=== PATIENT | female | born 1965 | race Caucasian/White ===

== ENCOUNTER → 2019-03-20 07:37 | Outpatient (BNVA) | payer MEDICAID, SELFPAY | PROVIDERS: Visit Provider Counselor Professional | DX: F41.1 Generalized anxiety disorder (principal) | CPT/HCPCS: 90834 ==

== ENCOUNTER → 2019-04-11 13:39 | Outpatient (BNVA) | payer MEDICAID, SELFPAY | PROVIDERS: Family Provider Nurse Practitioner Family; Visit Provider Nurse Practitioner Psychiatric/Mental Health | DX: F33.1 Major depressive disorder, recurrent, moderate (principal); F41.1 Generalized anxiety disorder | CPT/HCPCS: 99214 ==

== ENCOUNTER → 2019-04-16 13:30 | Outpatient (BNVA) | payer MEDICAID, SELFPAY | PROVIDERS: Visit Provider Counselor Professional | DX: R41.1 Anterograde amnesia (principal) | CPT/HCPCS: 90834 ==

== ENCOUNTER → 2019-05-13 15:11 | Outpatient (BNVA) | payer MEDICAID, SELFPAY | PROVIDERS: Visit Provider Counselor Professional | DX: F33.1 Major depressive disorder, recurrent, moderate (principal); F41.1 Generalized anxiety disorder | CPT/HCPCS: 90834 ==

== ENCOUNTER → 2019-05-16 07:32 | Outpatient (BNVA) | payer MEDICAID, SELFPAY | PROVIDERS: Visit Provider Nurse Practitioner Psychiatric/Mental Health | DX: F33.1 Major depressive disorder, recurrent, moderate (principal); F41.1 Generalized anxiety disorder | CPT/HCPCS: 99214 ==

== ENCOUNTER → 2019-06-11 08:14 | Outpatient (BNVA) | payer MEDICAID, SELFPAY | PROVIDERS: Visit Provider Nurse Practitioner Psychiatric/Mental Health | DX: F33.1 Major depressive disorder, recurrent, moderate (principal); F41.1 Generalized anxiety disorder | CPT/HCPCS: 99214 ==

== ENCOUNTER 2019-07-03 08:11 | Outpatient (CLI) | payer MEDICAID, SELFPAY ==
--- NOTE | 2019-07-03 08:00 | CT_ITS ---
WS: [id number] CT CHEST WITH INTRAVENOUS CONTRAST HISTORY: left lung nodule follow up TECHNIQUE: Contiguous 5 mm axial imaging performed on the thorax. Coronal and sagittal reformats are submitted. All CT scans at [facility] use at least one of these dose optimization techniq ues: automated exposure control; mA and/or kV adjustment per patient size (includes targeted exams wh ere dose is matched to clinical indication); or iterative reconstruction. CONTRAST: Omnipaque 300; 95 mL IV. DLP: 854.62 mGycm COMPARISON: 07/01/2018 and 11/28/2017 Lungs and central airway: Continued stability of the well-circumscribed round pulmonary nodule measur ing 8 mm in the medial LEFT lower lobe. This nodule has been stable since 11/28/2017. No additional n odules. Mild dependent changes at the lung bases posteriorly. Pleura: Normal. No pleural effusion. Heart and pericardium: Normal size heart. No pericardial effusion. Mediastinum and jf: Subcentimeter RIGHT hilar lymph node. No interval change. Vessels: Normal size aorta and pulmonary artery. Chest wall and lower neck: No soft tissue masses. Upper abdomen: Visualized liver and gallbladder and upper abdominal structures are negative. Osseous structures: No destructive process. CT/CT chest w con* [id number] IMPRESSION: 1. Long-term stability well-circumscribed benign-appearing nodule in the media l LEFT lower lobe. No additional follow-up necessary unless patient is at signi ficant risk for lung cancer. If there is an increased risk for lung cancer shakira mmend 12 month follow-up. No history of smoking was provided. Nodule is stable since 11/28/2017. 2. No adenopathy.
[2019-07-03] MEDS: iohexol 300 mg/mL 100 mL Btl IV (08:47)
== END 2019-07-03 08:12 | disposition home or self-care (01) ==
LOC: RADWPI 08:14
PROVIDERS: Visit Provider Family Medicine
DX: R91.1 Solitary pulmonary nodule (principal)
CPT/HCPCS: 71260; Q9967

== ENCOUNTER → 2019-07-10 08:20 | Outpatient (BNVA) | payer MEDICAID, SELFPAY | PROVIDERS: Visit Provider Nurse Practitioner Psychiatric/Mental Health | DX: F33.1 Major depressive disorder, recurrent, moderate (principal); F41.1 Generalized anxiety disorder | CPT/HCPCS: 99214 ==

== ENCOUNTER → 2019-07-21 08:24 | Outpatient (BNVA) | payer MEDICAID, SELFPAY | PROVIDERS: PCP Family Medicine; Visit Provider Family Medicine | DX: Z12.31 Encounter for screening mammogram for malignant neoplasm of breast (principal); Z13.6 Encounter for screening for cardiovascular disorders; Z01.419 Encounter for gynecological examination (general) (routine) without abnormal findings | CPT/HCPCS: 80053; 80061; 85025; 88175 ==

== ENCOUNTER → 2019-09-11 07:29 | Outpatient (BNVA) | payer MEDICAID, SELFPAY | PROVIDERS: PCP Family Medicine; Visit Provider Nurse Practitioner Psychiatric/Mental Health | DX: F33.1 Major depressive disorder, recurrent, moderate (principal); F41.1 Generalized anxiety disorder | CPT/HCPCS: 99213 ==

== ENCOUNTER → 2019-10-22 14:32 | Outpatient (BNVA) | payer MEDICAID, SELFPAY | PROVIDERS: PCP Family Medicine; Visit Provider Nurse Practitioner Family | DX: J02.9 Acute pharyngitis, unspecified (principal) | CPT/HCPCS: 87071; 87880 ==

== ENCOUNTER 2019-11-10 08:24 | Emergency (ER) | payer MEDICAID, SELFPAY ==
[2019-11-10 08:37] VITALS: BP 148/92; PULSE 70; RESP 18; TEMP 36.5; O2SAT 96; BMI 32.8
--- NOTE | 2019-11-10 08:59 | US_ITS ---
WS: [id number] RIGHT UPPER QUADRANT ULTRASOUND HISTORY: pain COMPARISON: 01/17/2019 Liver: 13.7 cm in length. Normal size liver. No bile duct dilatation or mass. Gallbladder: Normally distended gallbladder with no stones or wall thickening. CBD: 0.5 cm Pancreas: Normal size and echogenicity. Right kidney: 9.4 cm in length. Normal size and echogenicity. No hydronephrosis or mass. Aorta and IVC: Unremarkable abdominal aorta and IVC. No ascites. US/US gall bladder [id number] IMPRESSION: Normal RIGHT upper quadrant ultrasound.
--- NOTE | 2019-11-10 09:01 | ED_ITS ---
HPI - Abdominal Pain General: Chief Complaint: Abdominal Pain Stated Complaint: ABDOMEN PAIN Time Seen by Provider: 11/10/19 08:38 History of Present Illness: HPI narrative: 54-year-old female comes in complaining of nausea and vomiting she has had for the last week it is worse when she eats just about anything. She denies any diarrhea cough no shortness of breath no fever said any coffee-ground emesis or hematemesis. Is not really taking anything for it she has noticed a couple black tarry stools she took some Pepto-Bismol but the timing of when she had the stool is not likely correlate with when she took the Pepto-Bismol. She denies any dysuria urgency or frequency. She has not found anything that seems to make it better or worse she has not noticed any particular trigger foods. This set of symptoms is all new for her she has not had anything like previously. MD elicited complaint: abdominal pain Pertinent past history: none Onset (ago): week(s) (1) Pain Consistency: intermittent Location: Epigastric and RUQ Severity: severe Quality: cramping and stabbing Radiation: back Migration to: no migration Exacerbating factors: eating Associated Symptoms: Reports anorexia, bloating, change in bowel habits, change in stool character, GI cramping and melena; Denies belching, chills, coffee ground emesis, constipation, diarrhea, dyspepsia, dysuria, excessive flatus, fever(s), heartburn, hematochezia, hematuria, hematemesis, fecal incontinence, loose stools, nausea, poor appetite, syncope and vomiting Review of Systems Const: Denies: fever(s) or chills ENMT: Denies: throat pain, ear or mastoid pain, nasal discharge or nasal congestion Card: Denies: syncope Resp: Denies: dyspnea, productive cough or non-productive cough GI: Reports: bloating, GI cramping, change in bowel habits, change in stool character and melena; Denies: nausea, vomiting, hematemesis, coffee ground emesis, heartburn, diarrhea, constipation, belching, excessive flatus, fecal incontinence or hematochezia : Denies: dysuria or hematuria Skin/Breast: Denies: rash or pruritus PFSH ED PFSH: Medical History Constipation Depression Generalized anxiety disorder GERD (gastroesophageal reflux disease) Lung nodule Left lower lobe - 7mm - repeat in 07/01 Major depressive disorder, recurrent episode, moderate with anxious distress Surgical History H/O colonoscopy 03/14/2016 Repeat in 10 years No pertinent past surgical history Family History Denies family history of Diabetes CAD (coronary artery disease) Anesthesia complication Bleeding disorder Cancer Social History Smoking and tobacco status: never smoked Second hand smoke exposure: No Smoking risk assessment/counseling performed?: No Alcohol intake: never Household members: family Marital status: Single Current occupational status: employed 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 History of recent travel: No Physical Exam Const: COMMON NORMALS: no acute distress GENERAL APPEARANCE: cooperative and comfortable ORIENTATION/CONSCIOUSNESS: Yes awake, Yes oriented to person, Yes oriented to place and Yes oriented to time HENMT: COMMON NORMALS: normocephalic, atraumatic and hearing grossly normal bilaterally HEAD & SCALP: normocephalic and atraumatic Neck/C-Spine: COMMON NORMALS: no JVD Resp: COMMON NORMALS: normal respiratory effort, No retractions, No use of accessory muscles and clear to auscultation bilaterally AUSCULTATION: clear t o auscultation bilaterally Cardio: COMMON NORMALS: no JVD, regular rate, regular rhythm and No murmurs present (Cardio) RATE: regular rate RHYTHM: regular rhythm GI: COMMON NORMALS: Soft to palpation and No hepatosplenomegaly present AUSCULTATION: Yes normoactive bowel sounds PALPATION: Yes Soft to palpation, No Tenderness to palpation present (GI), No Guarding due to palpation present (GI) and Yes No hepatosplenomegaly present Extremity: COMMON NORMALS: normal to inspection, capillary refill normal, no clubbing, cyanosis or edema, no calf tenderness and no pedal edema Neuro: SENSORIUM/ORIENTATION: Yes oriented to person, Yes oriented to place and Yes oriented to time Skin: COMMON NORMALS: no rashes or lesions noted GENERAL SKIN EXAM: no rashes or lesions noted Course Vital Signs: Vital signs: Vital Signs Temperature 97.7 F 11/10/19 08:37 Pulse Rate 53 L 11/10/19 10:38 Respiratory Rate 16 11/10/19 10:38 Blood Pressure 137/82 11/10/19 10:38 Pulse Oximetry 97 11/10/19 10:38 MDM - Abdominal Pain MDM Narrative: Medical decision making narrative: Discontinue omeprazole start pantoprazole 40 mg 1 p.o. twice daily for 14 days also use Zofran PRN follow-up with primary care doctor in the next week to review may need further evaluation including EGD. Lab Data: Labs: Lab Results 11/10/19 11/10/19 11/10/19 Range/Units 09:17 09:45 09:45 WBC 6.2 (4.0-10.0) 10^3/ uL RBC 4.68 (4.1-5.3) 10^6/u L Hgb 14.3 (11.5-15.3) g/dL Hct 43.8 (37.0-47.0) % MCV 93.6 (81-99) fL MCH 30.6 (28.0-34.0) pg MCHC 32.6 (30.0-36.0) g/dL RDW 12.5 (12.1-15.1) % Plt Count 264 (130-400) 10^3/c mm MPV 11.2 H (7.4-10.4) fL Neut % (Auto) 59.0 % Lymph % (Auto) 32.5 % Kaufman % (Auto) 6.7 % Eos % (Auto) 0.7 % Baso % (Auto) 0.8 % Neut # (Auto) 3.63 (1.8-7.7) 10^3/u L Lymph # (Auto) 2.0 (0.8-4.8) 10^3/u L Kaufman # (Auto) 0.4 (0.2-0.9) 10^3/u L Eos # (Auto) 0.0 (0.0-0.8) 10^3/u L Baso # (Auto) 0.1 (0.0-0.1) 10^3/u L Nucleated RBC % (a uto) 0 % Nucleated RBCs # 0.0 /100WBC Sodium 139 (136-145) mmol/L Potassium 4.1 (3.5-5.1) mmol/L Chloride 106 (98-107) mmol/L Carbon Dioxide 23 (22-29) mmol/L Anion Gap 14.1 (5-19) BUN 14 (6-20) mg/dL Creatinine 0.8 (0.5-0.9) mg/dL GFR Calculation 75.3 L (90-130) mL/min Glucose 100 (65-115) mg/dL Calculated Osmolal ity 289 (285-295) mOsm/k g Calcium 9.0 (8.5-10.5) mg/dL Total Bilirubin 0.3 (0.15-1.2) mg/dL AST 20 (0-32) U/L ALT 14 (0-33) U/L Alkaline Phosphata se 57 (35-105) IU/L Total Protein 6.7 (6.6-8.7) g/dL Albumin 4.5 (3.5-5.2) g/dL Globulin 2.2 (1.3-4.6) g/dL Lipase 31 (13-60) U/L Urine Color Yellow (Yellow) Urine Appearance Clear (CLEAR) Urine pH 7 (5-7) Ur Specific Gravit y 1.005 (1.005-1.030) Urine Protein Neg (Negative) Urine Glucose (UA) Norm (Normal) Urine Ketones Negative (Negative) Urine Blood Neg (Negative) Urine Nitrate Negative (Negative) Urine Bilirubin Neg (Negative) Urine Urobilinogen Norm (Negative) mg/dL Ur Leukocyte Bonnie ase Negative (Negative) Discharge Plan Discharge Patient Disposition: Home Clinical Impression: GERD (gastroesophageal reflux disease) Condition: Stable Prescriptions: New Zofran 4 mg tablet 4 mg PO Q6H PRN (Reason: nausea and vomiting) Qty: 20 RF: 0 Discontinued omeprazole 20 mg capsule,delayed release(DR/EC) 20 mg PO BID Qty: 60 RF: 1 No Action hydroxyzine HCl 50 mg tablet 50 mg PO BID PRN (Reason: itching) Qty: 60 RF: 3 sucralfate [Carafate] 1 gram tablet 1 gm PO Q6H Qty: 120 RF: 0 Linzess 72 mcg capsule 72 mcg PO QAM Qty: 30 RF: 2 lactulose 10 gram/15 mL solution See Rx Instructions .ROUTE .COMPLEX Qty: 473 RF: 2 trazodone 100 mg tablet 200 mg PO BEDTIME RF: 0 Discharge Orders: Discharge Order (Routine); Ordered 11/10/19 Ordered By: Charly Coleman Referrals: Geri Mukherjee DO [Primary Care Provider] - Activity Restrictions/Additional Instructions: Case management will call to get your appointment to see 1 of the surgeons for p ossible EGD or further work-up for your abdominal pain. Discharge Date/Time: 11/10/19 10:39 Coding Level of Care Code ED Auto Air Conditioning Installer for Chg Fwd Exam Comprehensive
[2019-11-10 09:22] LABS: Add Urine Microscopic? NO
[2019-11-10 09:33] LABS: Bilirubin Urine Neg (Negative); Blood Urine Neg (Negative); Glucose Urine UA Norm (Normal); Ketones Urine Negative (Negative); Leukocyte Esterase Urine Negative (Negative); Nitrate Urine Negative (Negative); Protein Urine Neg (Negative); Specific Gravity, Urine 1.005 (1.005-1.030); Urine Appearance Clear (CLEAR); Urine Color Yellow (Yellow); Urobilinogen Urine Norm (Negative); pH Urine 7 (5-7)
[2019-11-10] MEDS: ondansetron 2 mg/ML SDV 2 mL 4 MG IVP (09:40)
[2019-11-10] MEDS: sodium chloride 0.9% 1,000 ML 999 ML IV (09:40)
[2019-11-10] MEDS: lidocaine 2% viscous 15 ML, aluminum-mag hydrox-simethicon 30 ML, sucralfate oral liq 1 GM PO (09:41)
[2019-11-10 09:44] VITALS: BP 151/81; PULSE 58; O2SAT 96
[2019-11-10 10:01] LABS: Basophils # 0.1 10^3/uL (0.0-0.1); Basophils % 0.8 %; Eosinophils % 0.7 %; Hematocrit 43.8 % (37.0-47.0); Hemoglobin 14.3 g/dL (11.5-15.3); Lymphocytes % 32.5 %; Mean Corpuscular HGB Conc 32.6 g/dL (30.0-36.0); Mean Corpuscular Hemoglobin 30.6 pg (28.0-34.0); Mean Corpuscular Volume 93.6 fL (81-99); Mean Platelet Volume 11.2 fL (7.4-10.4); Monocytes # 0.4 10^3/uL (0.2-0.9); Monocytes % 6.7 %; Neutrophils # 3.63 10^3/uL (1.8-7.7); Nucleated Red Blood Cells % 0 %; Platelet Count 264 10^3/cmm (130-400); Red Blood Count 4.68 10^6/uL (4.1-5.3); Red Cell Distribution Width 12.5 % (12.1-15.1); White Blood Count 6.2 10^3/uL (4.0-10.0)
[2019-11-10 10:13] LABS: Alanine Aminotransferase 14 U/L (0-33); Albumin Level 4.5 g/dL (3.5-5.2); Alkaline Phosphatase 57 IU/L (35-105); Anion Gap 14.1 (5-19); Aspartate Amino Transferase 20 U/L (0-32); Blood Urea Nitrogen 14 mg/dL (6-20); Carbon Dioxide 23 mmol/L (22-29); Chloride 106 mmol/L (98-107); Globulin 2.2 g/dL (1.3-4.6); Glomerular Filtration Rate 75.3 mL/min (90-130); Glucose 100 mg/dL (65-115); Lipase 31 U/L (13-60); Osmolality Calculated 289 mOsm/kg (285-295); Potassium 4.1 mmol/L (3.5-5.1); Sodium 139 mmol/L (136-145); Total Bilirubin 0.3 mg/dL (0.15-1.2); Total Protein 6.7 g/dL (6.6-8.7)
[2019-11-10 10:38] VITALS: BP 137/82; PULSE 53; RESP 16; O2SAT 97
--- NOTE | 2019-11-10 11:24 | DCPLANNER ---
clinical trials manager had message to schedule a follow up appointment for patient with general surgery. clinical trials manager called the [facility], spoke with Carol, gave clinic patients information. clinical trials manager was told that patients information would be printed and reviewed. Clinic will call patient with appointment information.
--- NOTE | 2019-11-12 10:12 | DCPLANNER ---
Patient has a follow up appointment scheduled for Tuesday, October 15, 2019 at 11:[address] Henriquez. Clinic will call patient with appointment information.
--- NOTE | 2019-11-18 15:49 | DCPLANNER ---
Patient had a follow up appointment scheduled for 11.14.19 with Machine [facility] - patient did attend appointment.
== END 2019-11-10 10:39 | disposition home or self-care (01) ==
PROVIDERS: Emergency Provider Family Medicine; PCP Family Medicine
DX: K21.9 Gastro-esophageal reflux disease without esophagitis (principal)
CPT/HCPCS: 12345; 76705; 80053; 81003; 83690; 85025; 96361; 96374; 96375; 99283; J2405; J7030

== ENCOUNTER → 2019-11-12 07:41 | Outpatient (BNVA) | payer MEDICAID, SELFPAY | PROVIDERS: PCP Family Medicine; Visit Provider Family Medicine | DX: R10.13 Epigastric pain (principal) | CPT/HCPCS: G0328 ==

== ENCOUNTER → 2019-11-21 12:01 | Outpatient (BNVA) | payer MEDICAID, SELFPAY | PROVIDERS: PCP Family Medicine; Visit Provider Surgery | DX: Z11.59 Encounter for screening for other viral diseases (principal); R10.13 Epigastric pain | CPT/HCPCS: 87635 ==

== ENCOUNTER 2019-11-27 08:39 | Day surgery (SDC) | payer MEDICAID, SELFPAY ==
[2019-11-27 08:57] VITALS: BP 110/65; PULSE 65; RESP 18; TEMP 36.5; O2SAT 96
[2019-11-27 09:09] LABS: OR HCG Qualitative Urine Negative (Negative)
[2019-11-27] MEDS: sodium chloride 0.9% 1,000 ML 30 ML IV (09:10)
--- NOTE | 2019-11-27 09:19 | ANES.PREANE2 ---
Pre-Anesthetic Assessment Pre-Anesthetic Assessment: Height/Weight: Height 1.45 m Weight 69.853 kg Temp Pulse Resp BP Pulse Ox 97.7 F 65 18 110/65 96 11/27/19 08:57 11/27/19 08:57 11/27/19 08:57 11/27/19 08:57 11/27/19 08:57 Preop Diagnosis: gerd Proposed Procedure: Operation Date: 11/27/19 10:00 Proposed Procedures p EGD 63132 R10.13(Not Applicable) - Renny Henriquez MD Familial anesthetic complications: None Was Beta Ella taken within 24 hours: N/A Last intake: Intake Last Liquid Date 11/26/19 Last Liquid Time 20:00 Last Solid Date 11/26/19 Last Solid Time 20:00 Social: Social History: No alcohol and No tobacco Exam: Pre-Anes Outpt Exam: alert, oriented x 3, clear to auscultation bilaterally and regular rate & rhythm Airway: Cervical ROM: WNL MP: 2 Dentition: False GI: GI: GERD Neuropsych: Neuropsych: Anxiety Anesthetic Plan: ASA status: 2 Anesthesia: MAC Risk of > 500 ml blood loss (7ml/kg in children): No Meds/Allergies Current Medications: Current Medications Generic Name Dose Route Start Last Admin Trade Name Freq PRN Reason Stop Dose Admin Sodium Chloride 1,000 mls @ 30 ml s/hr 11/27/19 09:00 11/27/19 09:10 Sodium Chloride 0.9% IV 11/28/19 08:59 30 mls/hr .Q24H TENZIN Administration PFSH Anesthesia PFSH: Medical History Constipation Depression Generalized anxiety disorder GERD (gastroesophageal reflux disease) Lung nodule Left lower lobe - 7mm - repeat in 07/01 Major depressive disorder, recurrent episode, moderate with anxious distress Surgical History (Updated 11/14/19 @ 11:49 by Renny Henriquez MD) H/O colonoscopy 03/14/2016 Repeat in 10 years Family History Denies family history of Diabetes CAD (coronary artery disease) Anesthesia complication Bleeding disorder Cancer Social History Smoking and tobacco status: never smoked Second hand smoke exposure: No Smoking risk assessment/counseling performed?: No Alcohol intake: never Household members: family Marital status: Single Current occupational status: employed 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
--- NOTE | 2019-11-27 09:20 | W.PM.OPSUD ---
Surgery/Procedure H&P Update DATE OF PROCEDURE: November 27, 2019 DATE H&P PERFORMED: 11/14/19 H&P UPDATE INFORMATION: I have reviewed H&P completed within last 30 days, I have examined patient prior to procedure and No changes to prior documentation PREOP DIAGNOSIS: gerd PLANNED PROCEDURE: Operation Date: 11/27/19 10:00 Proposed Procedures p EGD 39684 R10.13(Not Applicable) - Renny Henriquez MD
[2019-11-27 09:36] VITALS: BP 95/60; PULSE 55; RESP 16; TEMP 36.1; O2SAT 99
[2019-11-27 09:45] VITALS: BP 103/65; PULSE 59; RESP 18; O2SAT 94
--- NOTE | 2019-11-27 09:50 | ANE.PACU2 ---
Inpatient post-anesthesia follow up: Airway intact: Yes Vital signs: Temperature 97.0 F Pulse Rate 59 Respiratory Rate 18 Blood Pressure 103/65 Pulse Oximetry 94 Oxygen Delivery Me thod Room Air Oxygen Flow Rate 3 Fraction of Inspir ed Oxygen Hydration adequate: Yes Nausea and vomiting: No Pain level: 1 Mental status: Baseline
== END 2019-11-27 09:57 | disposition home or self-care (01) ==
PROVIDERS: PCP Family Medicine; Visit Provider Surgery
PROC: 0DJ08ZZ Inspection of Upper Intestinal Tract, Via Natural or Artificial Opening Endoscopic (ICD-10-PCS; CPT 43235; principal; 2019-11-27 10:00)
DX: K21.9 Gastro-esophageal reflux disease without esophagitis (principal); K29.70 Gastritis, unspecified, without bleeding; F41.9 Anxiety disorder, unspecified; F33.9 Major depressive disorder, recurrent, unspecified
CPT/HCPCS: 12345; 43235; 84703; J7030

== ENCOUNTER → 2019-12-04 08:38 | Outpatient (BNVA) | payer MEDICAID, SELFPAY | PROVIDERS: PCP Family Medicine; Visit Provider Nurse Practitioner Psychiatric/Mental Health | DX: F33.1 Major depressive disorder, recurrent, moderate (principal); F41.1 Generalized anxiety disorder | CPT/HCPCS: 99213 ==

== ENCOUNTER → 2019-12-25 08:26 | Outpatient (BNVA) | payer MEDICAID, SELFPAY | PROVIDERS: PCP Family Medicine; Visit Provider Family Medicine | DX: E78.5 Hyperlipidemia, unspecified (principal) | CPT/HCPCS: 80061 ==

== ENCOUNTER → 2020-01-15 08:32 | Outpatient (BNVA) | payer MEDICAID, SELFPAY | PROVIDERS: PCP Family Medicine; Visit Provider Nurse Practitioner Psychiatric/Mental Health | DX: F33.1 Major depressive disorder, recurrent, moderate (principal); F41.1 Generalized anxiety disorder | CPT/HCPCS: 99213 ==

== ENCOUNTER 2020-01-19 08:42 | Outpatient (CLI) | payer MEDICAID, SELFPAY ==
--- NOTE | 2020-01-19 08:48 | MM_ITS ---
WS: [id number] BILATERAL DIGITAL SCREENING MAMMOGRAPHY WITH CAD CLINICAL INFORMATION: SCREENING HISTORY: Screening mammogram. No current complaints. COMPARISON: TECHNIQUE: Bilateral CC and MLO views. FINDINGS: Scattered fibroglandular densities bilaterally. No suspicious focal mass, asymmetry, calcifications, or architectural distortion. No evidence of malignancy. MM/[place] [id number] IMPRESSION: BI-RADS: 1-Negative FOLLOW UP: 1 Year Follow-up Recommend return to annual screening mammography.
== END 2020-01-19 08:43 | disposition home or self-care (01) ==
LOC: RADSHAW 08:44
PROVIDERS: PCP Family Medicine; Visit Provider Family Medicine
DX: Z12.31 Encounter for screening mammogram for malignant neoplasm of breast (principal)
CPT/HCPCS: 77067

== ENCOUNTER → 2020-03-19 08:33 | Outpatient (BNVA) | payer MEDICAID, SELFPAY | PROVIDERS: PCP Family Medicine; Visit Provider Nurse Practitioner Psychiatric/Mental Health | DX: F33.1 Major depressive disorder, recurrent, moderate (principal); F41.1 Generalized anxiety disorder | CPT/HCPCS: 99214 ==

== ENCOUNTER → 2020-05-18 08:33 | Outpatient (BNVA) | payer MEDICAID, SELFPAY | PROVIDERS: PCP Family Medicine; Visit Provider Nurse Practitioner Psychiatric/Mental Health | DX: F33.1 Major depressive disorder, recurrent, moderate (principal); F41.1 Generalized anxiety disorder | CPT/HCPCS: 99213 ==

== ENCOUNTER → 2020-06-08 15:25 | Outpatient (BNVA) | payer MEDICAID, SELFPAY | PROVIDERS: PCP Family Medicine; Visit Provider Obstetrics & Gynecology | DX: N94.6 Dysmenorrhea, unspecified (principal); N92.0 Excessive and frequent menstruation with regular cycle; N84.0 Polyp of corpus uteri; E78.5 Hyperlipidemia, unspecified | CPT/HCPCS: 83036; 84443; 85025; 88305 ==

== ENCOUNTER → 2020-06-16 08:15 | Outpatient (BNVA) | payer MEDICAID, SELFPAY | PROVIDERS: PCP Family Medicine; Visit Provider Obstetrics & Gynecology | DX: N92.0 Excessive and frequent menstruation with regular cycle (principal); N94.6 Dysmenorrhea, unspecified | CPT/HCPCS: 76830 ==

== ENCOUNTER 2020-07-01 21:23 | Emergency (ER) | payer MEDICAID, SELFPAY ==
[2020-07-01 21:31] VITALS: BP 119/86; PULSE 89; RESP 18; TEMP 36.7; O2SAT 99; BMI 32.4
--- NOTE | 2020-07-01 21:41 | W.ED.BACK ---
HPI - Back Pain/Injury General: Chief Complaint: Back Pain/Injury Stated Complaint: lower back pain Time Seen by Provider: 07/01/20 21:39 History of Present Illness: HPI Narrative: Patient is a 54-year-old female comes to the ED with lower back pain. Patient says symptoms started approximately 2 weeks ago and have progressed and the pain is gotten more severe. Pain radiates down into both right and left thighs. Denies any acute trauma or injury to cause back pain. 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 Denies any bladder or bowel incontinence, pelvic anesthesia or weakness to lower extremities. She took a single 800 mg dose of ibuprofen and Tylenol for pain today around 3pm and it has not helped. Associated symptoms: Deny abdominal pain, chills, dysuria, fatigue, fever(s), hematuria, nausea or vomiting Review of Systems Const: Denies: fever(s), chills or fatigue Eyes: Denies: change in vision or eye discomfort ENMT: Denies: throat pain, odynophagia, nasal discharge or nasal congestion Card: Denies: chest pain, palpitations, edema, swelling of feet/ankles, dyspnea on exertion or orthopnea Resp: Denies: dyspnea, productive cough or non-productive cough GI: Denies: abdominal pain, nausea, vomiting, diarrhea, constipation or hematochezia : Denies: flank pain, dysuria or hematuria Musc: Reports: back pain and extremity pain (Pain rating down into both right and left lower extremities.); Denies: neck pain or extremity swelling Skin/Breast: Denies: rash or new lesions Neuro: Denies: headache(s), numbness in extremities or weakness in extremities PFS ED PFSH: Medical History Constipation Depression Generalized anxiety disorder GERD (gastroesophageal reflux disease) Lung nodule Left lower lobe - 7mm - repeat in 07/01 Major depressive disorder, recurrent episode, moderate with anxious distress Surgical History H/O colonoscopy 03/14/2016 Repeat in 10 years H/O esophagogastroduodenoscopy (11/27/19) mild gastritis. 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 History of recent travel: No Physical Exam Const: COMMON NORMALS: no acute distress, patient oriented x3 and alert GENERAL APPEARANCE: cooperative and comfortable HENMT: COMMON NORMALS: normocephalic HEAD & SCALP: normocephalic MOUTH: Normal oral and palatal mucosa present THROAT: posterior oropharynx normal and uvula midline Neck/C-Spine: COMMON NORMALS: supple GENERAL: Yes normal visual inspection Resp: COMMON NORMALS: normal respiratory effort, No retractions, No use of accessory muscles and clear to auscultation bilaterally AUSCULTATION: clear to auscultation bilaterally Cardio: COMMON NORMALS: regular rate, regular rhythm, S1 normal heart sound present, S2 normal heart sound present, No gallops present (Cardio), No clicks present (Cardio), No murmurs present (Cardio) and Peripheral pulses 2+ throughout RATE: regular rate RHYTHM: regular rhythm HEART SOUNDS: S1 normal heart sound present and S2 normal heart sound present PERIPHERAL PULSES: Peripheral pulses 2+ throughout GI: COMMON NORMALS: Normal to inspection, nondistended, normoactive bowel sounds present, Soft to palpation, non-tender and no masses PALPATION: Yes Soft to palpation : COMMON NORMALS: Yes no CVA tenderness BLADDER/KIDNEY EXAM: Yes no CVA tenderness Back/Pelvis: COMMON NORMALS: no CVA tenderness LUMBAR SPINE/LOWER BACK: Yes pain with ROM, Yes paraspinal muscle tenderness Lumbar paraspinal muscle tenderness: right, Yes straight leg raise positive right and Yes straight leg raise positive left Extremity: COMMON NORMALS: normal to inspection and no pedal edema Neuro: COMMON NORMALS: patient oriented x3 and moves all extremities SENSORIUM/ORIENTATION: Yes alert Skin: GENERAL SKIN EXAM: dry skin Course Vital Signs: Vital signs: Vital Signs Temperature 98.1 F 07/01/20 21:31 Pulse Rate 90 07/01/20 21:53 Respiratory Rate 17 07/01/20 21:53 Blood Pressure 129/97 07/01/20 21:53 Pulse Oximetry 99 07/01/20 21:53 MDM - Back Pain/Injury MDM Narrative: Medical decision making narrative: Patient is a 54-year-old female comes to the ED with lower back pain that radiates down into both right and left lower extremities. Symptoms have been going on for approximately 2 weeks. She denies any cauda equina symptoms. Exam findings were remarkable for lumbar paraspinal muscle tenderness on right side and a positive straight leg raise test on both right and left lower extremities. Patient was diagnosed with lumbar radiculopathy and she was given a dose of Decadron and Toradol while in the ED. Patient was then discharged with a prescription for Robaxin and a Medrol Dosepak. She was told to follow-up with her PCP in 7 to 10 days for reevaluation. Return to ED precautions given. Patient understood agree with plan. Discharge Plan Discharge Patient Disposition: Home Clinical Impression: Lumbar radiculopathy Condition: Stable Prescriptions: New Medrol (Job) 4 mg tablets,dose pack See Rx Instructions .ROUTE .COMPLEX Qty: 21 RF: 0 Robaxin-750 750 mg tablet 750 mg PO Q8H Qty: 20 RF: 0 No Action trazodone 100 mg tablet 200 mg PO BEDTIME Qty: 60 RF: 6 hydroxyzine HCl 50 mg tablet 50 mg PO BID PRN (Reason: itching) Qty: 60 RF: 6 lactulose 10 gram/15 mL solution See Rx Instructions .ROUTE .COMPLEX Qty: 473 RF: 2 sucralfate [Carafate] 1 gram tablet 1 g PO Q6H Qty: 120 RF: 3 pantoprazole 40 mg tablet,delayed release (DR/EC) 40 mg PO DAILY Qty: 90 RF: 1 Linzess 72 mcg capsule 72 mcg PO QAM Qty: 30 RF: 2 Discharge Orders: Discharge ED (Routine); Ordered 07/01/20 Ordered By: Luís Ocampo Referrals: Geri Mukherjee DO [Primary Care Provider] - Discharge Diet: Regular Discharge Activity: Increase activity as tolerated Patient Instructions: Lumbar Radiculopathy (ED), Core Strengthening Exercises (GEN) Activity Restrictions/Additional Instructions: Follow-up with medical provider as directed in 7 to 10 days for reevaluation. Take medications as prescribed. Robaxin is a muscle relaxer and can cause some drowsiness so take at night before bed. Rest, apply cold pack or heat on lower back to help with symptoms. Stretch lower back and legs daily. Return to the ER or your medical provider if condition worsens. Please read and understand discharge instructions. Thank you for choosing [facility] for your healthcare needs today. Please realize this is an emergency room and that we are providing you with a medical screening exam and this may not be complete and all inclusive of all the testing and or work up that you may need to determine your ailment or severity of your illness. It is very important that you follow up as instructed or that you return to the Emergency Department should you have concerns or if your condition changes or worsens in any way. Coding Level of Care Code ED Men'S Swim Coach for James Nathan Exam Comprehensive
[2020-07-01 21:53] VITALS: BP 129/97; PULSE 90; RESP 17; O2SAT 99
[2020-07-01] MEDS: ketorolac 60 mg/2 mL INJ IM (22:20)
[2020-07-01] MEDS: dexamethasone 10 mg/mL INJ IM (22:20)
== END 2020-07-01 22:56 | disposition home or self-care (01) ==
PROVIDERS: Emergency Provider Physician Assistant; PCP Family Medicine
DX: M54.16 Radiculopathy, lumbar region (principal)
CPT/HCPCS: 96372; 99283; J1100; J1885

== ENCOUNTER → 2020-07-05 16:16 | Outpatient (BNVA) | payer MEDICAID, SELFPAY | PROVIDERS: PCP Family Medicine; Visit Provider Obstetrics & Gynecology | DX: R10.2 Pelvic and perineal pain (principal); N83.291 Other ovarian cyst, right side | CPT/HCPCS: 76830; 84443 ==

== ENCOUNTER → 2020-07-06 11:47 | Outpatient (BNVA) | payer MEDICAID, SELFPAY | PROVIDERS: PCP Family Medicine; Visit Provider Nurse Practitioner Family | DX: Z20.822 Contact with and (suspected) exposure to COVID-19 (principal); Z20.828 Contact with and (suspected) exposure to other viral communicable diseases | CPT/HCPCS: 87635 ==

== ENCOUNTER → 2020-07-14 08:13 | Outpatient (BNVA) | payer MEDICAID, SELFPAY | PROVIDERS: PCP Family Medicine; Visit Provider Obstetrics & Gynecology | DX: N84.0 Polyp of corpus uteri (principal); N92.0 Excessive and frequent menstruation with regular cycle | CPT/HCPCS: 87635 ==

== ENCOUNTER 2020-07-19 10:39 | Outpatient (CLI) | payer MEDICAID, SELFPAY ==
--- NOTE | 2020-07-19 11:00 | CT_ITS ---
WS: [id number] CT ABDOMEN AND PELVIS NONCONTRAST HISTORY: R10.13 - Epigastric pain TECHNIQUE: Imaging performed through the abdomen and pelvis. Coronal and sagittal reformats are submi tted. All CT scans at [facility] use at least one of these dose optimization techniques: automated exposure control; mA and/or kV adjustment per patient size (includes targeted exams where d ose is matched to clinical indication); or iterative reconstruction. DLP: 1441.13 mGy.cm COMPARISON: 11/18/2017 Lower thorax: Noncalcified 9 mm nodule in the medial LEFT lower lobe is stable. Heart size is normal. No hiatal hernia. Liver: Normal size liver. No mass or bile duct dilatation. Gallbladder: Contracted. No adjacent inflammation. Pancreas: Normal size and attenuation. Normal pancreatic duct. No pancreatitis or mass. Spleen: Normal. Adrenal glands: Normal. No mass. Right kidney: Normal size kidney with no mass or hydronephrosis. Left kidney: No obstruction. 2 mm calcification central kidney. Aorta: Normal abdominal aorta, no aneurysm or atherosclerosis. No free fluid, intraperitoneal air or significant lymphadenopathy. GI tract: Normal appendix. No GI tract obstruction. There are a few scattered sigmoid diverticula wit hout and inflammation. Abdominal wall: Negative. No hernia. Pelvis: Anteverted uterus. There is a small cyst in the cervical region. Small bilateral ovaries are identified. Small ovarian follicles. No adnexal masses. No free fluid. Osseous structures: Unremarkable. CT/CT abdomen pelvis wo con [id number] IMPRESSION: 1. Normal appendix. 2. Sigmoid diverticulosis without acute diverticulitis. 3. Long-term stability noncalcified 8 mm nodule LEFT lower lobe.
[2020-07-19] MEDS: iohexol 300 mg/mL 50 mL Btl PO (12:06)
== END 2020-07-19 10:40 | disposition home or self-care (01) ==
LOC: RAD 10:42
PROVIDERS: PCP Family Medicine; Visit Provider Obstetrics & Gynecology
DX: R10.13 Epigastric pain (principal); K57.30 Diverticulosis of large intestine without perforation or abscess without bleeding; R91.1 Solitary pulmonary nodule
CPT/HCPCS: 74176

== ENCOUNTER 2020-07-20 07:53 | Day surgery (SDC) | payer MEDICAID, SELFPAY ==
[2020-07-19 12:17] VITALS: BMI 32.8
--- NOTE | 2020-07-19 12:47 | ANES.PREANE2 ---
Pre-Anesthetic Assessment Pre-Anesthetic Assessment: Height/Weight: Height 1.45 m Weight 68.946 kg Preop Diagnosis: abnormal uterine bleeding, endometrial polyps Proposed Procedure: Operation Date: 07/20/20 09:20 Proposed Procedures p Hysteroscopy w/ Myosure 28363 62743 N84.0 N92.0(Not Applicable) - Eryn Finnegan MD s Dilation And Curettage (D&C)(Not Applicable) - Eryn Finnegan MD Familial anesthetic complications: none Social: Social History: No alcohol and No tobacco Exam: Pre-Anes Outpt Exam: alert, oriented x 3, clear to auscultation bilaterally and regular rate & rhythm Airway: Cervical ROM: WNL MP: 2 Dentition: False GI: GI: GERD Metabolic: Metabolic: Hyperlipidemia Neuropsych: Neuropsych: Anxiety Anesthetic Plan: ASA status: 2 Anesthesia: General Risk of > 500 ml blood loss (7ml/kg in children): No PFSH Anesthesia PFSH: Medical History Constipation Depression Generalized anxiety disorder GERD (gastroesophageal reflux disease) Lung nodule Left lower lobe - 7mm - repeat in 07/01 Major depressive disorder, recurrent episode, moderate with anxious distress Surgical History H/O colonoscopy 03/14/2016 Repeat in 10 years H/O esophagogastroduodenoscopy (11/27/19) mild gastritis. 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
[2020-07-19 18:04] LABS: Basophils # 0.1 10^3/uL (0.0-0.1); Eosinophils # 0.1 10^3/uL (0.0-0.8); Eosinophils % 1.1 %; Hematocrit 43.4 % (37.0-47.0); Hemoglobin 13.9 g/dL (11.5-15.3); Lymphocytes # 1.9 10^3/uL (0.8-4.8); Lymphocytes % 29.8 %; Mean Corpuscular Hemoglobin 30.8 pg (28.0-34.0); Mean Corpuscular Volume 96.2 fL (81-99); Monocytes # 0.5 10^3/uL (0.2-0.9); Monocytes % 7.7 %; Neutrophils # 3.74 10^3/uL (1.8-7.7); Neutrophils % 60.2 %; Nucleated Red Blood Cells % 0 %; Platelet Count 284 10^3/cmm (130-400); Red Blood Count 4.51 10^6/uL (4.1-5.3); Red Cell Distribution Width 12.9 % (12.1-15.1); White Blood Count 6.2 10^3/uL (4.0-10.0)
[2020-07-19 18:14] LABS: Anion Gap 14.5 (5-19); Blood Urea Nitrogen 12 mg/dL (6-20); Calcium 8.6 mg/dL (8.5-10.5); Carbon Dioxide 25 mmol/L (22-29); Chloride 101 mmol/L (98-107); Glucose 94 mg/dL (65-115); Osmolality Calculated 284 mOsm/kg (285-295); Potassium 3.5 mmol/L (3.5-5.1); Sodium 137 mmol/L (136-145)
[2020-07-20 08:00] VITALS: BP 126/64; PULSE 76; RESP 18; TEMP 36.1
[2020-07-20] MEDS: ketorolac 30 mg/mL INJ IVP (08:26)
[2020-07-20] MEDS: sodium chloride 0.9% 1,000 ML 30 ML IV (08:26)
[2020-07-20 08:30] LABS: OR HCG Qualitative Urine Negative (Negative)
--- NOTE | 2020-07-20 09:08 | W.PM.OPSUD ---
Surgery/Procedure H&P Update DATE OF PROCEDURE: July 20, 2020 DATE H&P PERFORMED: 07/15/20 H&P UPDATE INFORMATION: I have reviewed H&P completed within last 30 days, I have examined patient prior to procedure and No changes to prior documentation PREOP DIAGNOSIS: abnormal uterine bleeding, endometrial polyps PLANNED PROCEDURE: Operation Date: 07/20/20 09:20 Proposed Procedures p Hysteroscopy w/ Myosure 28854 41187 N84.0 N92.0(Not Applicable) - Eryn Finnegan MD s Dilation And Curettage (D&C)(Not Applicable) - Eryn Finnegan MD
--- NOTE | 2020-07-20 09:08 | ANES.PAUD2 ---
Pre-Anesthetic Update Pre-Anesthetic Assessment: Date of Surgery/Procedure: 07/20/20 Preop Diagnosis: abnormal uterine bleeding, endometrial polyps Proposed Procedure: Operation Date: 07/20/20 09:20 Proposed Procedures p Hysteroscopy w/ Myosure 56204 62216 N84.0 N92.0(Not Applicable) - Eryn Finnegan MD s Dilation And Curettage (D&C)(Not Applicable) - Eryn Finnegan MD Any changes to Pre-Anesthetic Assessment?: No Last Intake: Intake Last Liquid Date 07/19/20 Last Liquid Time 18:00 Last Solid Date 07/19/20 Last Solid Time 18:00 Labs Last 48hrs: Laboratory Results - last 48 hr 07/19/20 07/19/20 07/20/20 12:35 12:35 08:27 WBC 6.2 RBC 4.51 Hgb 13.9 Hct 43.4 MCV 96.2 MCH 30.8 MCHC 32.0 RDW 12.9 Plt Count 284 MPV 12.0 H Neut % (Auto) 60.2 Lymph % (Auto) 29.8 [place] % (Auto) 7.7 Eos % (Auto) 1.1 Baso % (Auto) 1.0 Neut # (Auto) 3.74 Lymph # (Auto) 1.9 [place] # (Auto) 0.5 Eos # (Auto) 0.1 Baso # (Auto) 0.1 Nucleated RBC % (a uto) 0 Nucleated RBCs # 0.0 Sodium 137 Potassium 3.5 Chloride 101 Carbon Dioxide 25 Anion Gap 14.5 BUN 12 Creatinine 0.6 GFR Calculation 105.0 Glucose 94 Calculated Osmolal ity 284 L Calcium 8.6 Urine HCG, Qual Negative Vitals: Temperature 97.0 F L 07/20/20 08:00 Temperature Source Temporal Artery S can 07/20/20 08:00 Pulse Rate 76 07/20/20 08:00 Respiratory Rate 18 07/20/20 08:00 Blood Pressure 126/64 07/20/20 08:00 Blood Pressure Clau n 84 07/20/20 08:00 Oxygen Delivery Me thod 07/20/20 08:00 Exam: Pre-Anes Outpt Exam: alert, oriented x 3, clear to auscultation bilaterally and regular rate & rhythm Cardiac Studies: No Data to Display
--- NOTE | 2020-07-20 10:00 | PM.OP ---
Operative Report Date of procedure: July 20, 2020 Pre-op Diagnosis: abnormal uterine bleeding, endometrial polyps Post-op diagnosis: same Post-op Findings: excessive endometrial tissue, endometrial polyps and fibroids Procedure Done: hysteroscopy, dilation and curettage with myosure Specimens removed/disposition: endometrial curettings to pathology Surgeon: Eryn Finnegan Anesthesia: General Estimated blood loss (mL): 0 IV fluids (mL): 800 Urine output (mL): 50 Complications: none Findings: 8 week sized uterus with excessive tissue Condition: stable Disposition: PACU Procedure: The patient was taken to the operating room where monitored anesthesia was administered and to be adequate. She was prepped and draped in the normal sterile fashion in the dorsal lithotomy position in [facility]. A weighted speculum was placed into the vagina and the anterior lip of the cervix grasped with a single-tooth tenaculum. The uterus was sounded to 8 dutch. The cervix was dilated to 14 Pashto. The hysteroscope was advanced into the endometrial cavity. There was excessive tissue and a possible anterior fibroid visualized. The MyoSure device was activated and the tissue was removed. Pictures were taken pre and post procedure. All instruments were removed. The patient tolerated the procedure well. Sponge lap and needle counts were correct x3. She was taken to the recovery room in stable condition.
[2020-07-20 10:06] VITALS: BP 111/82; PULSE 95; RESP 17; TEMP 36.3; O2SAT 95
--- NOTE | 2020-07-20 10:06 | PM.DCS ---
Discharge Providers Date of Discharge: July 20, 2020 Attending Provider at Discharge: Eryn Finnegan MD Primary Care Provider: Geri Mukherjee DO Diagnoses at Discharge Discharge Diagnosis (1) Postoperative state: Status: Acute Reason for Visit Reason for Visit: hysteroscopy Hospital Course Hospital Course The patient presented for surgery. She did well postoperatively and was ready for discharge. Discharge Data Data Completed and Pending: Pending at discharge Category Date Time Status ES surgery / GI i mages Routine Exams 07/20/20 09:07 Ordered Labs from last 24 hours 07/20/20 07/19/20 07/19/20 08:27 12:35 12:35 WBC 6.2 RBC 4.51 Hgb 13.9 Hct 43.4 MCV 96.2 MCH 30.8 MCHC 32.0 RDW 12.9 Plt Count 284 MPV 12.0 H Neut % (Auto) 60.2 Lymph % (Auto) 29.8 [place] % (Auto) 7.7 Eos % (Auto) 1.1 Baso % (Auto) 1.0 Neut # (Auto) 3.74 Lymph # (Auto) 1.9 [place] # (Auto) 0.5 Eos # (Auto) 0.1 Baso # (Auto) 0.1 Nucleated RBC % (a uto) 0 Nucleated RBCs # 0.0 Sodium 137 Potassium 3.5 Chloride 101 Carbon Dioxide 25 Anion Gap 14.5 BUN 12 Creatinine 0.6 GFR Calculation 105.0 Glucose 94 Calculated Osmolal ity 284 L Calcium 8.6 Urine HCG, Qual Negative Vitals: Last Vital Signs Temp 97.0 F L 07/20/20 08:00 Pulse 76 07/20/20 08:00 Resp 18 07/20/20 08:00 BP 126/64 07/20/20 08:00 Discharge Plan Discharge Patient Disposition: Home Condition: Stable Prescriptions: Continued trazodone 100 mg tablet 200 mg PO BEDTIME Qty: 60 RF: 6 hydroxyzine HCl 50 mg tablet 50 mg PO BID PRN (Reason: itching) Qty: 60 RF: 6 sucralfate [Carafate] 1 gram tablet 1 g PO Q6H Qty: 120 RF: 3 pantoprazole 40 mg tablet,delayed release (DR/EC) 40 mg PO DAILY Qty: 90 RF: 1 Linzess 72 mcg capsule 72 mcg PO QAM Qty: 30 RF: 2 Discharge Orders: Discharge Order (Routine); Ordered 07/20/20 Ordered By: Eryn Finnegan Discharge Attestations Time Spent in Discharge Care*: less than 30 min Quality Metrics Clinical Quality Measures During this hospital stay, did patient experience: None Coding Level of Care Code Acute [facility] [place] note Diagnoses Postoperative state Z98.890
[2020-07-20 10:10] VITALS: BP 112/62; PULSE 87; RESP 16; O2SAT 96
--- NOTE | 2020-07-20 10:11 | P.PCN_ITS ---
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
--- NOTE | 2020-07-20 10:11 | PM.PACU ---
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
[2020-07-20 10:15] VITALS: BP 132/71; PULSE 81; RESP 18; TEMP 36.5; O2SAT 95
[2020-07-20 10:28] VITALS: BP 110/74; PULSE 81; RESP 18; TEMP 36; O2SAT 94
[2020-07-20 11:01] VITALS: BP 111/70; PULSE 68; RESP 18; O2SAT 94
--- NOTE | 2020-07-20 21:18 | ANE.PACU2 ---
Inpatient post-anesthesia follow up: Airway intact: Yes Vital signs: Temperature 96.8 F Pulse Rate 68 Respiratory Rate 18 Blood Pressure 111/70 Pulse Oximetry 94 Oxygen Delivery Me thod Room Air Oxygen Flow Rate Fraction of Inspir ed Oxygen Hydration adequate: Yes Nausea and vomiting: No Pain level: 3 Mental status: Baseline
== END 2020-07-20 11:20 | disposition home or self-care (01) ==
PROVIDERS: PCP Family Medicine; Visit Provider Obstetrics & Gynecology
PROC: 0UDB8ZZ Extraction of Endometrium, Via Natural or Artificial Opening Endoscopic (ICD-10-PCS; CPT 58558; principal; 2020-07-20 09:10)
PROC: (CPT 58120; 2020-07-20 09:10)
DX: N93.9 Abnormal uterine and vaginal bleeding, unspecified (principal); D25.9 Leiomyoma of uterus, unspecified; N84.0 Polyp of corpus uteri; K21.9 Gastro-esophageal reflux disease without esophagitis; E78.5 Hyperlipidemia, unspecified; F32.9 Major depressive disorder, single episode, unspecified; F41.9 Anxiety disorder, unspecified
CPT/HCPCS: 58558; 36415; 80048; 84703; 85025; 88305; 96374; J0330; J0690; J1100; J1885; J2405; J2704; J3010; J3490; J7030

== ENCOUNTER → 2020-08-04 08:39 | Outpatient (BNVA) | payer MEDICAID, SELFPAY | PROVIDERS: PCP Family Medicine; Visit Provider Obstetrics & Gynecology | DX: N80.0 Endometriosis of uterus (principal); D26.1 Other benign neoplasm of corpus uteri | CPT/HCPCS: 76830 ==

== ENCOUNTER → 2020-08-05 13:07 | Outpatient (BNVA) | payer MEDICAID, SELFPAY | PROVIDERS: PCP Family Medicine; Visit Provider Obstetrics & Gynecology | DX: N80.0 Endometriosis of uterus (principal); N95.0 Postmenopausal bleeding; R10.2 Pelvic and perineal pain | CPT/HCPCS: 87635 ==

== ENCOUNTER 2020-08-10 13:09 | Observation (INO) | payer MEDICAID, SELFPAY ==
[2020-08-06 09:54] VITALS: BMI 32.4
--- NOTE | 2020-08-06 10:19 | ANES.PREANE2 ---
Pre-Anesthetic Assessment Pre-Anesthetic Assessment: Height/Weight: Height 1.45 m Weight 68.039 kg Preop Diagnosis: menorrhagia, adenomyosis Proposed Procedure: Operation Date: 08/10/20 12:30 Proposed Procedures p Laparoscopic Assist Vaginal Hysterectomy 95707 n95.0 n80.0 r10.2(Not Applicable) - Eryn Finnegan MD Familial anesthetic complications: None Social: Social History: No alcohol and No tobacco Exam: Pre-Anes Outpt Exam: alert, oriented x 3, clear to auscultation bilaterally and regular rate & rhythm Airway: Cervical ROM: WNL MP: 2 Dentition: False GI: GI: GERD Anesthetic Plan: ASA status: 2 Anesthesia: General Risk of > 500 ml blood loss (7ml/kg in children): No PFSH Anesthesia PFSH: Medical History Constipation Depression Generalized anxiety disorder GERD (gastroesophageal reflux disease) Lung nodule Left lower lobe - 7mm - repeat in 07/01 Major depressive disorder, recurrent episode, moderate with anxious distress Surgical History H/O colonoscopy 03/14/2016 Repeat in 10 years H/O esophagogastroduodenoscopy (11/27/19) mild gastritis. Family History Mother Cancer Lung cancer Denies family history of Diabetes Ovarian cyst CAD (coronary artery disease) Clotting disorder Hyperlipidemia Chronic kidney disease (CKD) Anesthesia complication Bleeding disorder Hypertension Thyroid disease Stroke Social History Smoking and tobacco status: never smoked Alcohol intake: never Female Reproductive History: Date of last menstrual period: 06/08/20 Data Anesthesia CBC & Chem 7: 08/06/20 10:05 08/06/20 10:05 Cardiac Studies: No Data to Display
[2020-08-06 10:21] LABS: Basophils % 0.4 %; Eosinophils # 0.1 10^3/uL (0.0-0.8); Hematocrit 43.1 % (37.0-47.0); Lymphocytes # 1.5 10^3/uL (0.8-4.8); Lymphocytes % 28.9 %; Mean Corpuscular HGB Conc 32.5 g/dL (30.0-36.0); Mean Corpuscular Hemoglobin 30.2 pg (28.0-34.0); Mean Corpuscular Volume 92.9 fL (81-99); Mean Platelet Volume 11.7 fL (7.4-10.4); Monocytes # 0.5 10^3/uL (0.2-0.9); Monocytes % 8.8 %; Neutrophils # 3.16 10^3/uL (1.8-7.7); Neutrophils % 60.5 %; Nucleated Red Blood Cells % 0 %; Platelet Count 236 10^3/cmm (130-400); Red Blood Count 4.64 10^6/uL (4.1-5.3); Red Cell Distribution Width 12.9 % (12.1-15.1); White Blood Count 5.2 10^3/uL (4.0-10.0)
[2020-08-06 10:39] LABS: Blood Urea Nitrogen 12 mg/dL (6-20); Calcium 8.9 mg/dL (8.5-10.5); Carbon Dioxide 22 mmol/L (22-29); Chloride 103 mmol/L (98-107); Glomerular Filtration Rate 75.3 mL/min (90-130); Glucose 88 mg/dL (65-115); Osmolality Calculated 283 mOsm/kg (285-295); Sodium 137 mmol/L (136-145)
[2020-08-06 10:44] LABS: Anion Gap 16.3 (5-19); Potassium 4.3 mmol/L (3.5-5.1)
[2020-08-10] VITALS (17 sets, daily range): BP systolic 104–149; BP diastolic 58–98; PULSE 50–69; RESP 10–19; TEMP 36.5–37.1; O2SAT 93–98
[2020-08-10 08:26] LABS: OR HCG Qualitative Urine Negative (Negative)
[2020-08-10] MEDS: sodium chloride 0.9% 1,000 ML 30 ML IV (08:35)
[2020-08-10] MEDS: acetaminophen 1,000 MG/100 ML PIGGYBACK 400 MG IV (08:35)
[2020-08-10] MEDS: phenazopyridine 100 mg Tablet 200 MG PO (08:39)
[2020-08-10] MEDS: CELEcoxib 200 mg Capsule 400 MG PO (08:39)
[2020-08-10] MEDS: gabapentin 300 mg Capsule PO (08:39)
[2020-08-10] MEDS: ketorolac 30 mg/mL INJ IVP ×3 (08:41→20:27)
--- NOTE | 2020-08-10 10:23 | P.ANESUD_ITS ---
Pre-Anesthetic Update Pre-Anesthetic Assessment: Date of Surgery/Procedure: 08/10/20 Preop [place] gnosis: menorrhagia, adenomyosis Proposed Procedure: Operation Date: 08/10/20 09:50 Proposed Procedures p Laparoscopic Assist Vaginal Hysterectomy 05176 n95.0 n80.0 r10.2(Not Applicable) - Eryn Finnegan MD Any changes to Pre-Anesthetic Assessment?: No Last Intake: Intake Last Liquid Date 08/09/20 Last Liquid Time 20:00 Last Solid Date 08/09/20 Last Solid Time 20:00 Labs Last 48hrs: Laboratory Results - last 48 hr 08/10/20 08/10/20 08:18 09:18 Urine HCG, Qual Negative Blood Type O Negative Rho(D) Type Negative / 0 Antibody Screen Negative Vitals: Temperature 98.4 F 08/10/20 08:34 Temperature Source Temporal Artery S can 08/10/20 08:34 Pulse Rate 69 08/10/20 08:34 Respiratory Rate 16 08/10/20 08:34 Blood Pressure 114/98 08/10/20 08:34 Blood Pressure Clau n 103 08/10/20 08:34 Pulse Oximetry 95 08/10/20 08:34 Oxygen Delivery Me thod 08/10/20 08:34 Exam: Pre-Anes Outpt Exam: alert, oriented x 3, clear to auscultation bilaterally and regular rate & rhythm Cardiac Studies: No Data to Display
--- NOTE | 2020-08-10 10:47 | W.PM.OPSUD ---
Surgery/Procedure H&P Update DATE OF PROCEDURE: August 10, 2020 DATE H&P PERFORMED: 07/26/20 H&P UPDATE INFORMATION: I have reviewed H&P completed within last 30 days, I have examined patient prior to procedure and No changes to prior documentation PREOP DIAGNOSIS: menorrhagia, adenomyosis PLANNED PROCEDURE: Operation Date: 08/10/20 09:50 Proposed Procedures p Laparoscopic Assist Vaginal Hysterectomy 39748 n95.0 n80.0 r10.2(Not Applicable) - Eryn Finnegan MD
[2020-08-10] MEDS: ceFOXitin 2,000 MG in sodium chloride 0.9% (plus) 50 ML 100 MG IV (10:55)
[2020-08-10] MEDS: vasopressin 20 unit/mL INJ 8 UNIT INJECTION (12:12)
--- NOTE | 2020-08-10 13:09 | P.OP_ITS ---
Operative Report Date of procedure: August 10, 2020 Pre-op Diagnosis: menorrhagia, adenomyosis Post-op diagnosis: same Post-op Findings: 8 week sized uterus, normal appearing tubes and ovaries. Some pelvic adhesions Procedure Done: laparoscopic assisted vaginal hysterectomy with bilateral salpingoophorectomy and cystoscopy Specimens removed/disposition: uterus, fallopian tubes and ovaries Surgeon: Eryn Finnegan Anesthesia: General Estimated blood loss (mL): 50 IV fluids (mL): 1,400 Urine output (mL): 100 Complications: none Condition: stable Disposition: PACU Brief History: The patient was having postmenopausal bleeding. She underwent hysteroscopy. She was diagnosed with adenomyosis. She continued to bleed, so decided to have a hysterectomy to solve the uterine bleeding issue Procedure: The patient was taken to the operating room where general anesthesia was administered and found to be adequate. She was prepped and draped in the normal sterile fashion in the dorsal lithotomy position in [facility]. A Olguin catheter was placed. A weighted speculum was placed into the vagina and the anterior lip of the cervix was grasped with a single tooth tenaculum. The Zumi uterine manipulator was placed. The weighted speculum was removed. The gloves were changed and attention was turned to the abdomen. A 5 mm infraumbilical incision was made. Using a 5 mm port with the camera, the port was placed into the abdomen. The abdomen was insufflated. Two low, lateral 5 mm ports were placed on the left and right under direct visualization from the camera. The right tube and ovary were grasped and elevated. Using the laparoscopic cautery, the infundibulopelvic ligaement as well as the round ligament were ligated. This was performed the same way on the left. The bladder flap was created sharply with the scissors. Attention was then turned to the vaginal portion of the procedure. The weighted speculum was placed into the vagina. The zumi manipulator was removed. The single tooth tenaculum was removed and replaced with the briana's tenaculum. 8 mL of dilute Pitressin was injected at the vesicovaginal junction. A circumferential incision was made at the vesicovaginal junction and the vagin al mucosa reflected cephalad. The posterior peritoneum was entered sharply with the Metzenbaum scissors and the long weighted speculum replaced. Using the Adama clamps the uterosacral ligaments were clamped cut and suture-ligated. Then sequentially the uterine arteries and cardinal ligaments were clamped cut and suture-ligated. A single-tooth tenaculum was used to deliver the uterus. The utero-ovarian ligaments were clamped cut and suture-ligated bilaterally and the specimen was removed. The bilateral fallopian tubes and ovaries were visualized and found to be normal. The peritoneum was closed with a pursestring using 2-0 Vicryl. The vaginal cuff was closed with 0 Vicryl in a running locked pattern incorporating the uterosacral ligaments into the lateral aspects of the vaginal cuff. The Olguin catheter was removed and the cystoscope advanced into the bladder. The patient was given pyridium and bilateral spill was noted. There were no injuries or deficits noted in the bladder. The cystoscope was removed and the Olguin was replaced. Vaginal packing was placed for good hemostasis. Tolerated the procedure well. Sponge lap and needle counts were correct x3. She was taken to the recovery room in stable condition.
--- NOTE | 2020-08-10 13:37 | ANE.PACU2 ---
Inpatient post-anesthesia follow up: Airway intact: Yes Vital signs: Temperature 97.8 F Pulse Rate 56 Respiratory Rate 16 Blood Pressure 116/66 Pulse Oximetry 95 Oxygen Delivery Me thod Room Air Oxygen Flow Rate Fraction of Inspir ed Oxygen Hydration adequate: Yes Nausea and vomiting: No Pain level: 2 Mental status: Baseline
[2020-08-10] MEDS: dextrose 5%-lactated ringers 1,000 ML 125 ML IV (15:19)
[2020-08-10] MEDS: ondansetron 2 mg/ML SDV 2 mL 4 MG IVP (15:27)
--- NOTE | 2020-08-10 15:35 | PC.NURSE ---
Pt. c/o pain Pt c/o pain rating at a 5. Pt does not want anything for pain at this time. Pt. able to sleep.
[2020-08-10] MEDS: scopolamine 1.5 Patch 1 PATCH TRANSDERMA (17:17)
[2020-08-10] MEDS: prochlorperazine 10 mg Tablet PO (17:21)
--- NOTE | 2020-08-10 17:43 | PC.NURSE ---
[address] Finnegan Called Dr Finnegan to report pt nausea and vomiting. Reported Zofran was given, pt still n/v an hour later. Orders received.
--- NOTE | 2020-08-10 17:53 | PC.NURSE ---
Pain Assessment Pt rates pain at a 5, but pt voices not want anything for pain. Pt. able to rest/sleep.
--- NOTE | 2020-08-10 18:01 | PC.NURSE ---
Nausea/Vomiting Pt voices n/v is better, but not gone. Will give pt Phenergan.
[2020-08-10] MEDS: promethazine 25 mg Tablet PO (18:05)
[2020-08-10] MEDS: HYDROcodone-acetaminophen 5-325 mg Tablet PO (18:20)
--- NOTE | 2020-08-10 18:24 | PC.NURSE ---
Nausea/Vomiting Pt. has not vomited. Pt voices nausea is gone.
--- NOTE | 2020-08-10 18:44 | PC.NURSE ---
N/V Pt vomited 100 ml clear yellow fluid. Did not observe any tablets. Pt denies feeling nauseated.
[2020-08-11] MEDS: dextrose 5%-lactated ringers 1,000 ML 125 ML IV (00:27)
[2020-08-11] MEDS: ketorolac 30 mg/mL INJ IVP (02:40)
[2020-08-11 05:00] VITALS: BP 99/64; PULSE 67; RESP 15; TEMP 36.9; O2SAT 96
[2020-08-11 05:40] LABS: Hematocrit 33.6 % (37.0-47.0); Hemoglobin 11.2 g/dL (11.5-15.3); Mean Corpuscular HGB Conc 33.3 g/dL (30.0-36.0); Mean Corpuscular Hemoglobin 30.8 pg (28.0-34.0); Mean Corpuscular Volume 92.3 fL (81-99); Mean Platelet Volume 11.6 fL (7.4-10.4); Platelet Count 209 10^3/cmm (130-400); Red Blood Count 3.64 10^6/uL (4.1-5.3); Red Cell Distribution Width 12.5 % (12.1-15.1); White Blood Count 10.7 10^3/uL (4.0-10.0)
[2020-08-11] MEDS: docusate sodium 100 mg Capsule PO (09:20)
--- NOTE | 2020-08-11 10:16 | PM.DCS ---
Discharge Providers Date of Admission: 08/10/20 13:09 Date of Discharge: August 11, 2020 Attending Provider at Admission: Eryn Finnegan MD Attending Provider at Discharge: Eryn Finnegan MD Primary Care Provider: Geri Mukherjee DO Diagnoses at Discharge Discharge Diagnosis (1) Postoperative state: Status: Acute Reason for Visit Reason for Visit: lap assisted vaginal hysterectomy Hospital Course Hospital Course The patient was admitted for surgery. She did well postoperatively and was ready for discharge. Physical Exam Narrative: EXAM NARRATIVE: The patient is doing well this morning. She has good pain control. She is ambulating and tolerating a regular diet. Const: COMMON NORMALS: no acute distress, average body habitus, patient oriented x3, no limitations, healthy appearing and alert GENERAL APPEARANCE: cooperative, comfortable, well kempt and well developed ORIENTATION/CONSCIOUSNESS: Yes awake, Yes oriented to person, Yes oriented to place and Yes oriented to time Resp: COMMON NORMALS: normal respiratory effort EFFORT & INSPECTION: Yes able to speak in complete sentences : COMMON NORMALS: Yes normal external appearance and Yes normal appearance of the vagina BLADDER/KIDNEY EXAM: Yes other (vaginal packing removed) Extremity: COMMON NORMALS: no clubbing, cyanosis or edema and no calf tenderness Neuro: COMMON NORMALS: patient oriented x3 SENSORIUM/ORIENTATION: Yes alert, Yes oriented to person, Yes oriented to place and Yes oriented to time Psych: APPEARANCE: Yes well kempt Urinary Catheter Management^: Olguin: Cath Placed During This Visit: yes Urinary Catheter Date of Insertion: 08/10/20 Urinary Catheter Time of Insertion: 11:20 Discharge Data Data Completed and Pending: Pending at discharge Category Date Time Status ES surgery / GI i mages Routine Exams 08/10/20 10:14 Ordered Pathology: Surgic al [PTH] Routine Pth 08/10/20 13:00 Received Labs from last 24 hours 08/11/20 08/10/20 05:10 09:18 WBC 10.7 H RBC 3.64 L Hgb 11.2 L Hct 33.6 L MCV 92.3 MCH 30.8 MCHC 33.3 RDW 12.5 Plt Count 209 MPV 11.6 H Blood Type O Negative Rho(D) Type Negative / 0 Antibody Screen Negative Vitals: Last Vital Signs Temp 98.4 F 08/11/20 05:00 Pulse 67 08/11/20 05:00 Resp 15 08/11/20 05:00 BP 99/64 08/11/20 05:00 Pulse Ox 96 08/11/20 05:00 Discharge Plan Discharge Patient Disposition: Home Condition: Stable Prescriptions: New hydrocodone-acetaminophen 5-325 mg Tablet 1 tab PO Q6H PRN (Reason: Moderate To Severe Pain) Qty: 10 RF: 0 Continued trazodone 100 mg tablet 200 mg PO BEDTIME Qty: 60 RF: 6 hydroxyzine HCl 50 mg tablet 50 mg PO BID PRN (Reason: itching) Qty: 60 RF: 6 sucralfate [Carafate] 1 gram tablet 1 g PO Q6H Qty: 120 RF: 3 pantoprazole 40 mg tablet,delayed release (DR/EC) 40 mg PO DAILY Qty: 90 RF: 1 Linzess 72 mcg capsule 72 mcg PO QAM Qty: 30 RF: 2 Discharge Orders: Discharge Order (Routine); Ordered 08/11/20 Ordered By: Eryn Finnegan Referrals: Eryn Finnegan MD [Physician] - 08/19/20 2:30 pm (1 week post-op appointment: 08/19/20 @ 2:30 6 week post-op appointment: 09/23/20 @10:45) Patient Instructions: Laparoscopically Assisted Vaginal Hysterectomy (DC), OB Discharge Report, OB Food/Drug Interaction Guide, Opioid Safety Discharge Attestations Time Spent in Discharge Care*: less than 30 min Quality Metrics Clinical Quality Measures During this hospital stay, did patient experience: None Coding Level of Care Code Acute Chg [place] note Diagnoses Postoperative state Z98.890
[2020-08-11 11:12] VITALS: BP 105/73; PULSE 67; RESP 18; TEMP 36.8; O2SAT 98
[2020-08-11 11:17] VITALS: BP 105/73; PULSE 67; RESP 18; TEMP 36.8; O2SAT 98
== END 2020-08-11 11:18 | disposition home or self-care (01) ==
LOC: OBGYN 13:09
PROVIDERS: Admitting Provider Obstetrics & Gynecology; PCP Family Medicine; Visit Provider Obstetrics & Gynecology
PROC: 0UT9FZZ Resection of Uterus, Via Natural or Artificial Opening With Percutaneous Endoscopic Assistance (ICD-10-PCS; CPT 58552; principal; 2020-08-10 09:40)
DX: N92.0 Excessive and frequent menstruation with regular cycle (principal); N80.0 Endometriosis of uterus
CPT/HCPCS: 58552; 36415; 80048; 81025; 84703; 85025; 85027; 86850; 86900; 87086; 88307; 96365; 96374; G0378; J0690; J0694; J1100; J1885; J1940; J2250; J2405; J2550; J2704; J2710; J3010; J3490; J7030; Q0164; Q0169

== ENCOUNTER → 2020-08-25 14:47 | Outpatient (BNVA) | payer MEDICAID, SELFPAY | PROVIDERS: PCP Family Medicine; Visit Provider Obstetrics & Gynecology | DX: R30.0 Dysuria (principal) | CPT/HCPCS: 81000; 87086 ==

== ENCOUNTER → 2020-10-27 14:40 | Outpatient (BNVA) | payer MEDICAID, SELFPAY | PROVIDERS: PCP Family Medicine; Visit Provider Nurse Practitioner Psychiatric/Mental Health | DX: F33.1 Major depressive disorder, recurrent, moderate (principal); F41.1 Generalized anxiety disorder | CPT/HCPCS: 99214 ==

== ENCOUNTER → 2020-11-10 13:02 | Outpatient (BNVA) | payer MEDICAID, SELFPAY | PROVIDERS: PCP Family Medicine; Visit Provider Nurse Practitioner Psychiatric/Mental Health | DX: F33.1 Major depressive disorder, recurrent, moderate (principal); F41.1 Generalized anxiety disorder; G47.09 Other insomnia | CPT/HCPCS: 99214 ==

== ENCOUNTER → 2020-12-08 11:29 | Outpatient (BNVA) | payer MEDICAID, SELFPAY | PROVIDERS: PCP Family Medicine; Visit Provider Nurse Practitioner Family | DX: Z20.822 Contact with and (suspected) exposure to COVID-19 (principal) | CPT/HCPCS: 87635 ==

== ENCOUNTER → 2020-12-15 14:12 | Outpatient (BNVA) | payer MEDICAID, SELFPAY | PROVIDERS: PCP Family Medicine; Visit Provider Nurse Practitioner Psychiatric/Mental Health | DX: F33.1 Major depressive disorder, recurrent, moderate (principal); F41.1 Generalized anxiety disorder; G47.09 Other insomnia | CPT/HCPCS: 99214 ==

== ENCOUNTER → 2020-12-23 14:49 | Outpatient (BNVA) | payer MEDICAID, SELFPAY | PROVIDERS: PCP Family Medicine; Visit Provider Family Medicine | DX: Z13.6 Encounter for screening for cardiovascular disorders (principal) | CPT/HCPCS: 80053; 80061; 85025 ==

== ENCOUNTER 2021-01-03 10:39 | Emergency (ER) | payer MEDICAID, SELFPAY ==
--- NOTE | 2021-01-03 10:42 | ECG_ITS ---
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 Measurements Intervals [place] Rate: 66 P: 51 GA: 132 QRS: 15 QRSD: 80 T: 52 QT: 409 QTc: 431 Interpretive Statements SINUS RHYTHM Compared to ECG 10/14/2018 12:56:43 No significant changes Electronically Signed On 01-03-2021 20:01:46 [employer] by Kenn Beal M.D. [id number]
[2021-01-03 10:58] VITALS: BP 125/89; PULSE 69; RESP 18; TEMP 37.1; O2SAT 98; BMI 30.9
--- NOTE | 2021-01-03 11:23 | XR_ITS ---
WS: [id number] PORTABLE CHEST HISTORY: chest pain COMPARISON: 03/21/2016 Lungs are clear and well expanded. No pleural effusion or pneumothorax. Cardiac size: Normal. Mediastinum/Aorta: Normal mediastinum. No osseous abnormality seen. XR/XR chest 1V portable [id number] IMPRESSION: Unremarkable portable chest.
--- NOTE | 2021-01-03 11:29 | ED_ITS ---
Documented by User: Freya Mann PA-C 01/03/21 14:33 HPI - Chest Pain General: Chief Complaint: Chest Pain Stated Complaint: Chest Pain Time Seen by Provider: 01/03/21 11:17 Source: patient Mode of arrival: ambulatory Limitations: no limitations History of Present Illness: HPI narrative: 55-year-old female presents to the ER today for racing heart and chest pressure. Patient reports this worsened about 1 week ago when she found out her daughter . She reports before that she had a couple episodes of the symptoms but in the last week she has had significant increase in symptoms. She also reports her boyfriend's father is having heart issues and has added stress to her life. Patient reports these episodes of chest pressure and racing heart seem to last less than 5 minutes and then recur after 10 to 15 minutes. She reports some sweating and mild nausea associated. Denies any radiating pain denies any sharp stabbing pains. Patient has not taken anything for the pain at this time. She reports a history of anxiety and depression and does take something for sleep at night. She reports a sleeping med is no longer working at this time due to the increased stress she has been under. Patient reports elevated cholesterol but denies any other family history of heart problems. MD complaint: chest heaviness Onset (ago): day(s) Timing of current episode: episodic Prior episodes: Yes Onset: other (increased stress) Pain location: substernal Pain radiation: none Severity: moderate Pain scale (0-10): 6 Quality: tightness and heaviness Relieving factors: nothing Exacerbating factors: nothing Associated symptoms: Reports diaphoresis, nausea and palpitations; Deny abdominal pain, dyspnea, fever(s), syncope or vomiting Treatment prior to arrival: none Risk Factors: Coronary artery disease risk factors: hyperlipidemia Related Data: On Oral Contraceptives: No Review of Systems General: Reports: 10 or more systems reviewed and unremarkable except in HPI and below Const: Reports: diaphoresis; Denies: fever(s), chills or body aches ENMT: Denies: throat pain, nasal discharge or nasal congestion Card: Reports: chest pain and palpitations; Denies: edema, lightheadedness, syncope, dyspnea on exertion or orthopnea Resp: Denies: dyspnea, productive cough or wheezing GI: Reports: nausea; Denies: abdominal pain, vomiting, diarrhea or constipation : Denies: flank pain or dysuria Musc: Denies: neck pain or back pain Skin/Breast: Denies: rash Neuro: Denies: headache(s) Psych: Reports: anxiety and depression PFSH ED PFSH: Medical History Constipation Depression Generalized anxiety disorder GERD (gastroesophageal reflux disease) Insomnia Lung nodule Left lower lobe - 7mm - repeat in 07/01 Major depressive disorder, recurrent episode, moderate with anxious distress Psychiatric care Surgical History H/O colonoscopy 03/14/2016 Repeat in 10 years H/O esophagogastroduodenoscopy (11/27/19) mild gastritis. History of dilation and curettage (~07/20/20) 07/20/2020: Hysteroscopy, dilation and curettage with myosure at [place], [place] by Dr. Finnegan. Family History Mother Cancer Lung cancer Denies family history of Diabetes Ovarian cyst CAD (coronary artery disease) Clotting disorder Hyperlipidemia Chronic kidney disease (CKD) Anesthesia complication Bleeding disorder Hypertension Thyroid disease Stroke Social History Smoking and tobacco status: never smoked Alcohol intake: never Female Reproductive History: Date of last menstrual period: 06/08/20 Physical Exam Const: COMMON NORMALS: no acute distress, average body habitus, patient oriented x3 and alert GENERAL APPEARANCE: cooperative; not anxious (pt is not anxious and does not appear in distress over recent family ) and not ill appearing HENMT: COMMON NORMALS: normocephalic, atraumatic, hearing grossly normal bilat erally, moist oral mucous membranes and oropharynx normal HEAD & SCALP: normocephalic and atraumatic Eye: COMMON NORMALS: conjunctivae normal GENERAL EYE: appearance normal, both eyes and all related structures CONJUNCTIVA: Yes conjunctivae normal Neck/C-Spine: COMMON NORMALS: full ROM, no lymphadenopathy and no JVD Lymph: LYMPHATIC: no lymphadenopathy noted Chest: COMMONS NORMALS: normal inspection of the chest and normal palpation of entire chest wall Resp: COMMON NORMALS: normal respiratory effort, No retractions and clear to auscultation bilaterally EFFORT & INSPECTION: Yes able to speak in complete sentences AUSCULTATION: clear to auscultation bilaterally, no rales, no rhonchi and no wheezes Cardio: COMMON NORMALS: no JVD, regular rate, regular rhythm, No clicks present (Cardio), No murmurs present (Cardio) and No rub (Cardio) RATE: regular rate RHYTHM: regular rhythm GI: COMMON NORMALS: Normal to inspection, nondistended, normoactive bowel sounds present, Soft to palpation, non-tender and No hepatosplenomegaly present PALPATION: Yes Soft to palpation and Yes No hepatosplenomegaly present : COMMON NORMALS: Yes no CVA tenderness BLADDER/KIDNEY EXAM: Yes no CVA tenderness Back/Pelvis: COMMON NORMALS: no CVA tenderness Extremity: COMMON NORMALS: normal to inspection, full ROM and no pedal edema Neuro: COMMON NORMALS: patient oriented x3 SENSORIUM/ORIENTATION: Yes alert Psych: COMMON NORMALS: mental status grossly normal, Normal thought process present, cooperative and normal affect ATTITUDE: Yes calm MOOD & AFFECT: No anxious THOUGHT PROCESS: Normal thought process present Skin: COMMON NORMALS: no rashes or lesions noted GENERAL SKIN EXAM: no rashes or lesions noted Course ED course: 55-year-old female presents to the ER today for chest pressure and heart palpitations that have worsened over the last 1 week. She reports that she found out her daughter about a week ago. She also has had increased stress with her boyfriend's father. She did have a couple episodes prior to the increased stressors however things worsened with the stress. We will do a cardiac work-up to rule out a cardiac cause versus stress/anxiety. Vital Signs: Vital signs: Vital Signs Temperature 98.8 F 01/03/21 10:58 Pulse Rate 72 01/03/21 14:00 Respiratory Rate 17 01/03/21 14:00 Blood Pressure 114/86 01/03/21 14:00 Pulse Oximetry 100 01/03/21 14:00 MDM - Chest Pain MDM Narrative: Medical decision making narrative: 55-year-old female presents to the ER today for chest pain that she reports has been going on about 1 week. This all started after she found out her daughter . Patient does report a history of anxiety and depression and takes something for sleep which she reports is Lunesta. She reports her anxiety and depression has worsened over the last 1 week. She is not sleeping well at this time. The chest pain she describes as midsternal but does not radiate and lasts for seconds and comes and goes. There are few associated symptoms. She does have occasional nausea or sweating but this is very mild. Patient denies any dizziness associated. Denies any history of cardiac problems. Denies any family history of cardiac problems. Exam was unremarkable today. Patient's vitals were all stable the entire time in the ER. Patient's lab work is normal as is the chest x-ray. Troponin was negative. This is likely related to patient's anxiety and recent stressors. We will try Vistaril to help her sleep and help the anxiety. Patient should follow-up with her primary care doctor within 1 week. For any new or worsening symptoms, return to the ER. Patient verbalized understanding and is in agreement with this treatment plan. Lab Data: Labs: Lab Results 01/03/21 01/03/21 01/03/21 11:30 11:30 11:30 WBC 6.7 10^3/uL 10^3/ uL (4.0-10.0) RBC 4.38 10^6/uL 10^6 /uL (4.1-5.3) Hgb 13.5 g/dL g/dL (11.5-15.3) Hct 40.1 % % (37.0-47.0) MCV 91.6 fl fl (81-99) MCH 30.8 pg pg (28.0-34.0) MCHC 33.7 g/dL g/dL (30.0-36.0) RDW 12.4 % % (12.1-15.1) Plt Count 239 10^3/cmm 10^3 /cmm (130-400) MPV 12.3 fL H fL (7.4-10.4) Neut % (Auto) 59.2 % % Lymph % (Auto) 32.5 % % Simpson % (Auto) 6.3 % % Eos % (Auto) 1.0 % % Baso % (Auto) 0.9 % % Neut # (Auto) 3.94 10^3/uL 10^3 /uL (1.8-7.7) Lymph # (Auto) 2.2 10^3/uL 10^3/ uL (0.8-4.8) Simpson # (Auto) 0.4 10^3/uL 10^3/ uL (0.2-0.9) Eos # (Auto) 0.1 10^3/uL 10^3/ uL (0.0-0.8) Baso # (Auto) 0.1 10^3/uL 10^3/ uL (0.0-0.1) Nucleated RBC % (a uto) 0 % % Nucleated RBCs # 0.0 /100WBC /100W BC PT 13.60 SECONDS SEC ONDS (12.1-14.9) INR 1.01 (0.8-1.2) APTT 30.6 SECONDS SECO NDS (23.9-36.7) Sodium 141 mmol/L mmol/L (136-145) Potassium 4.0 mmol/L mmol/L (3.5-5.1) Chloride 105 mmol/L mmol/L (98-107) Carbon Dioxide 24 mmol/L mmol/L (22-29) Anion Gap 16.0 (5-19) BUN 14 mg/dL mg/dL (6-20) Creatinine 0.6 mg/dL mg/dL (0.5-0.9) GFR Calculation 104.6 mL/min mL/m in (90-130) Glucose 82 mg/dL mg/dL (65-115) Calculated Osmolal ity 292 mOsm/kg mOsm/ kg (285-295) Calcium 9.0 mg/dL mg/dL (8.5-10.5) Total Bilirubin 0.4 mg/dL mg/dL (0.15-1.2) AST 17 U/L U/L (0-32) ALT 10 U/L U/L (0-33) Alkaline Phosphata se 71 IU/L IU/L (35-105) Creatine Kinase 135 U/L U/L (26-192) Troponin T Baselin e NT-Pro-B Natriuret Pep 30 pg/mL pg/mL (0-125) Total Protein 6.3 g/dL L g/dL (6.6-8.7) Albumin 4.5 g/dL g/dL (3.5-5.2) Globulin 1.8 g/dL g/dL (1.3-4.6) Lipase 26 U/L U/L (13-60) 01/03/21 11:30 WBC RBC Hgb Hct MCV MCH MCHC RDW Plt Count MPV Neut % (Auto) Lymph % (Auto) Simpson % (Auto) Eos % (Auto) Baso % (Auto) Neut # (Auto) Lymph # (Auto) Simpson # (Auto) Eos # (Auto) Baso # (Auto) Nucleated RBC % (a uto) Nucleated RBCs # PT INR APTT Sodium Potassium Chloride Carbon Dioxide Anion Gap BUN Creatinine GFR Calculation Glucose Calculated Osmolal ity Calcium Total Bilirubin AST ALT Alkaline Phosphata se Creatine Kinase Troponin T Baselin e 6 ng/L ng/L (0-10) NT-Pro-B Natriuret Pep Total Protein Albumin Globulin Lipase Imaging Data^: CXR: Radiologist's impression: [id number] [id number] XRay Report Signed Patient: Ashia Saleh Unit #: [id number] : [id number] Age/Sex: 55 / F ADM Date: 01/03/21 Loc: ER Room/Bed: Attending Dr: Ordering Provider/Ordering MD: Freya Mann Date of Service: 01/03/21 Procedure(s): XR chest 1V portable [id number] Accession Number(s): [id number] Report Number: [id number] WS: [id number] PORTABLE CHEST HISTORY: chest pain COMPARISON: 03/21/2016 Lungs are clear and well expanded. No pleural effusion or pneumothorax. Cardiac size: Normal. Mediastinum/Aorta: Normal mediastinum. No osseous abnormality seen. XR/XR chest 1V portable [id number] IMPRESSION: Unremarkable portable chest. Dictated By: Emely Abdul DO Signed By: Emely Abdul DO Signed Date/Time: 01/03/21 1143 DD/ 1143 Critical Care Time Critical Care Time: Critical Care Time: No Discharge Plan Discharge Patient Disposition: Home Clinical Impression: Anxiety and depression, Chest pain, non-cardiac Condition: Stable Prescriptions: New Vistaril 25 mg capsule 25 mg PO TID PRN (Reason: anxiety) Qty: 20 RF: 0 No Action Linzess 72 mcg capsule 72 mcg PO QAM Qty: 30 RF: 5 pantoprazole 40 mg tablet,delayed release (DR/EC) See Rx Instructions .ROUTE .COMPLEX Qty: 30 RF: 5 meloxicam [Mobic] 15 mg tablet 15 mg PO DAILY Qty: 30 RF: 2 sucralfate [Carafate] 1 gram tablet 1 g PO Q6H Qty: 120 RF: 3 eszopiclone [Lunesta] 3 mg tablet 3 mg PO BEDTIME Qty: 30 RF: 1 atorvastatin 40 mg tablet 40 mg PO DAILY 45 Days Qty: 45 RF: 0 Discharge Orders: Discharge ED (Routine); Ordered 01/03/21 Ordered By: Freya Mann Referrals: Geri Mukherjee DO [Primary Care Provider] - Discharge Diet: Usual diet Discharge Activity: Resume usual activity Patient Instructions: Opioid Safety Activity Restrictions/Additional Instructions: Take Vistaril as prescribed. Increase fluid intake. Follow-up with primary care doctor in 3 to 5 days. Return to the ER with any new or worsening symptoms. Coding Level of Care Code ED Mechanical Maintenance Technician for Chg Fwd Exam Comprehensive Documented by User: Charly Coleman DO 01/03/21 16:57 HPI - Chest Pain General: Chief Complaint: Chest Pain Stated Complaint: Chest Pain Time Seen by Provider: 01/03/21 11:17 [facility] ED PFSH: Medical History Constipation Depression Generalized anxiety disorder GERD (gastroesophageal reflux disease) Insomnia Lung nodule Left lower lobe - 7mm - repeat in 07/01 Major depressive disorder, recurrent episode, moderate with anxious distress Psychiatric care Surgical History H/O colonoscopy 03/14/2016 Repeat in 10 years H/O esophagogastroduodenoscopy (11/27/19) mild gastritis. History of dilation and curettage (~07/20/20) 07/20/2020: Hysteroscopy, dilation and curettage with myosure at [place], [place] by Dr. Finnegan. Family History Mother Cancer Lung cancer Denies family history of Diabetes Ovarian cyst CAD (coronary artery disease) Clotting disorder Hyperlipidemia Chronic kidney disease (CKD) Anesthesia complication Bleeding disorder Hypertension Thyroid disease Stroke Social History Smoking and tobacco status: never smoked Alcohol intake: never Course Vital Signs: Vital signs: Vital Signs Temperature 98.8 F 01/03/21 10:58 Pulse Rate 72 01/03/21 14:00 Respiratory Rate 17 01/03/21 14:00 Blood Pressure 114/86 01/03/21 14:00 Pulse Oximetry 100 01/03/21 14:00 MDM - Chest Pain MDM Narrative: Medical decision making narrative: Chart reviewed and patient discussed with midlevel. Agree with assessment and plan. Lab Data: Labs: Lab Results 01/03/21 01/03/21 01/03/21 11:30 11:30 11:30 WBC 6.7 10^3/uL 10^3/ uL (4.0-10.0) RBC 4.38 10^6/uL 10^6 /uL (4.1-5.3) Hgb 13.5 g/dL g/dL (11.5-15.3) Hct 40.1 % % (37.0-47.0) MCV 91.6 fl fl (81-99) MCH 30.8 pg pg (28.0-34.0) MCHC 33.7 g/dL g/dL (30.0-36.0) RDW 12.4 % % (12.1-15.1) Plt Count 239 10^3/cmm 10^3 /cmm (130-400) MPV 12.3 fL H fL (7.4-10.4) Neut % (Auto) 59.2 % % Lymph % (Auto) 32.5 % % Simpson % (Auto) 6.3 % % Eos % (Auto) 1.0 % % Baso % (Auto) 0.9 % % Neut # (Auto) 3.94 10^3/uL 10^3 /uL (1.8-7.7) Lymph # (Auto) 2.2 10^3/uL 10^3/ uL (0.8-4.8) Simpson # (Auto) 0.4 10^3/uL 10^3/ uL (0.2-0.9) Eos # (Auto) 0.1 10^3/uL 10^3/ uL (0.0-0.8) Baso # (Auto) 0.1 10^3/uL 10^3/ uL (0.0-0.1) Nucleated RBC % (a uto) 0 % % Nucleated RBCs # 0.0 /100WBC /100W BC PT 13.60 SECONDS SEC ONDS (12.1-14.9) INR 1.01 (0.8-1.2) APTT 30.6 SECONDS SECO NDS (23.9-36.7) Sodium 141 mmol/L mmol/L (136-145) Potassium 4.0 mmol/L mmol/L (3.5-5.1) Chloride 105 mmol/L mmol/L (98-107) Carbon Dioxide 24 mmol/L mmol/L (22-29) Anion Gap 16.0 (5-19) BUN 14 mg/dL mg/dL (6-20) Creatinine 0.6 mg/dL mg/dL (0.5-0.9) GFR Calculation 104.6 mL/min mL/m in (90-130) Glucose 82 mg/dL mg/dL (65-115) Calculated Osmolal ity 292 mOsm/kg mOsm/ kg (285-295) Calcium 9.0 mg/dL mg/dL (8.5-10.5) Total Bilirubin 0.4 mg/dL mg/dL (0.15-1.2) AST 17 U/L U/L (0-32) ALT 10 U/L U/L (0-33) Alkaline Phosphata se 71 IU/L IU/L (35-105) Creatine Kinase 135 U/L U/L (26-192) Troponin T Baselin e NT-Pro-B Natriuret Pep 30 pg/mL pg/mL (0-125) Total Protein 6.3 g/dL L g/dL (6.6-8.7) Albumin 4.5 g/dL g/dL (3.5-5.2) Globulin 1.8 g/dL g/dL (1.3-4.6) Lipase 26 U/L U/L (13-60) 01/03/21 11:30 WBC RBC Hgb Hct MCV MCH MCHC RDW Plt Count MPV Neut % (Auto) Lymph % (Auto) Simpson % (Auto) Eos % (Auto) Baso % (Auto) Neut # (Auto) Lymph # (Auto) Simpson # (Auto) Eos # (Auto) Baso # (Auto) Nucleated RBC % (a uto) Nucleated RBCs # PT INR APTT Sodium Potassium Chloride Carbon Dioxide Anion Gap BUN Creatinine GFR Calculation Glucose Calculated Osmolal ity Calcium Total Bilirubin AST ALT Alkaline Phosphata se Creatine Kinase Troponin T Baselin e 6 ng/L ng/L (0-10) NT-Pro-B Natriuret Pep Total Protein Albumin Globulin Lipase Discharge Plan Discharge Patient Disposition: Home Clinical Impression: Anxiety and depression, Chest pain, non-cardiac Condition: Stable Prescriptions: New Vistaril 25 mg capsule 25 mg PO TID PRN (Reason: anxiety) Qty: 20 RF: 0 No Action Linzess 72 mcg capsule 72 mcg PO QAM Qty: 30 RF: 5 pantoprazole 40 mg tablet,delayed release (DR/EC) See Rx Instructions .ROUTE .COMPLEX Qty: 30 RF: 5 meloxicam [Mobic] 15 mg tablet 15 mg PO DAILY Qty: 30 RF: 2 sucralfate [Carafate] 1 gram tablet 1 g PO Q6H Qty: 120 RF: 3 eszopiclone [Lunesta] 3 mg tablet 3 mg PO BEDTIME Qty: 30 RF: 1 atorvastatin 40 mg tablet 40 mg PO DAILY 45 Days Qty: 45 RF: 0 Discharge Orders: Discharge ED (Routine); Ordered 01/03/21 Ordered By: Freya Mann Referrals: Geri Mukherjee DO [Primary Care Provider] - Discharge Diet: Usual diet Discharge Activity: Resume usual activity Patient Instructions: Opioid Safety Activity Restrictions/Additional Instructions: Take Vistaril as prescribed. Increase fluid intake. Follow-up with primary care doctor in 3 to 5 days. Return to the ER with any new or worsening symptoms. Coding Level of Care Code ED Mechanical Maintenance Technician for Rafaelg Fwd Exam Comprehensive
[2021-01-03 12:01] VITALS: BP 123/76; PULSE 55; RESP 18; O2SAT 98
[2021-01-03 12:08] LABS: Basophils # 0.1 10^3/uL (0.0-0.1); Basophils % 0.9 %; Eosinophils # 0.1 10^3/uL (0.0-0.8); Hematocrit 40.1 % (37.0-47.0); Hemoglobin 13.5 g/dL (11.5-15.3); Lymphocytes # 2.2 10^3/uL (0.8-4.8); Lymphocytes % 32.5 %; Mean Corpuscular HGB Conc 33.7 g/dL (30.0-36.0); Mean Corpuscular Hemoglobin 30.8 pg (28.0-34.0); Mean Corpuscular Volume 91.6 fl (81-99); Mean Platelet Volume 12.3 fL (7.4-10.4); Monocytes # 0.4 10^3/uL (0.2-0.9); Monocytes % 6.3 %; Neutrophils # 3.94 10^3/uL (1.8-7.7); Neutrophils % 59.2 %; Nucleated Red Blood Cells % 0 %; Platelet Count 239 10^3/cmm (130-400); Red Blood Count 4.38 10^6/uL (4.1-5.3); Red Cell Distribution Width 12.4 % (12.1-15.1); White Blood Count 6.7 10^3/uL (4.0-10.0)
[2021-01-03 12:27] LABS: INR 1.01 (0.8-1.2)
[2021-01-03 12:37] LABS: Troponin(5th) Baseline 6 ng/L (0-10)
[2021-01-03 12:38] LABS: Partial Thromboplastin Time 30.6 SECONDS (23.9-36.7)
[2021-01-03 12:44] LABS: Alanine Aminotransferase 10 U/L (0-33); Albumin Level 4.5 g/dL (3.5-5.2); Alkaline Phosphatase 71 IU/L (35-105); Aspartate Amino Transferase 17 U/L (0-32); Blood Urea Nitrogen 14 mg/dL (6-20); Carbon Dioxide 24 mmol/L (22-29); Chloride 105 mmol/L (98-107); Creatine Phosphokinase 135 U/L (26-192); Globulin 1.8 g/dL (1.3-4.6); Glomerular Filtration Rate 104.6 mL/min (90-130); Glucose 82 mg/dL (65-115); Lipase 26 U/L (13-60); NT Pro B Type Natriuretic Pept 30 pg/mL (0-125); Osmolality Calculated 292 mOsm/kg (285-295); Sodium 141 mmol/L (136-145); Total Bilirubin 0.4 mg/dL (0.15-1.2); Total Protein 6.3 g/dL (6.6-8.7)
[2021-01-03 13:00] VITALS: BP 118/70; PULSE 58; RESP 15; O2SAT 98
[2021-01-03 14:00] VITALS: BP 114/86; PULSE 72; RESP 17; O2SAT 100
== END 2021-01-03 14:32 | disposition home or self-care (01) ==
PROVIDERS: Emergency Provider Physician Assistant; PCP Family Medicine
DX: R07.89 Other chest pain (principal); F41.8 Other specified anxiety disorders
CPT/HCPCS: 71045; 80053; 82550; 83690; 83880; 84484; 85025; 85610; 85730; 93005; 99283

== ENCOUNTER → 2021-01-10 14:01 | Outpatient (BNVA) | payer MEDICAID, SELFPAY | PROVIDERS: PCP Family Medicine; Visit Provider Nurse Practitioner Psychiatric/Mental Health | DX: F33.1 Major depressive disorder, recurrent, moderate (principal); F41.1 Generalized anxiety disorder; G47.09 Other insomnia | CPT/HCPCS: 99214 ==

== ENCOUNTER → 2021-02-01 08:30 | Outpatient (BNVA) | payer MEDICAID, SELFPAY | PROVIDERS: PCP Family Medicine; Visit Provider Nurse Practitioner Family | DX: Z20.822 Contact with and (suspected) exposure to COVID-19 (principal) | CPT/HCPCS: 87635 ==

== ENCOUNTER 2021-02-07 05:57 | Emergency (ER) | payer MEDICAID, SELFPAY ==
[2021-02-07 06:03] VITALS: BP 138/88; PULSE 65; RESP 14; TEMP 36.8; O2SAT 97; BMI 32.4
--- NOTE | 2021-02-07 07:31 | ED_ITS ---
HPI - Ear Problem General: Chief complaint: Ear Stated complaint: Ear Pain Both Ears Time Seen by Provider: 02/07/21 06:59 Source: patient Mode of arrival: ambulatory Limitations: no limitations History of Present Illness: HPI Narrative: Patient is a 55-year-old female who presents to ED today with complaint of bilateral ear pain. Patient tells me over the past week or so she has had upper respiratory symptoms including cough, nasal congestion, rhinorrhea. Patient states she has been tested for Covid several times and they were all negative. She states most of her symptoms are improving however has now developed bilateral ear pain. She is not having any hearing loss or tinnitus. No drainage from the ear. No trauma. MD Complaint: ear pain Location: bilateral Duration: constant Severity: moderate Relieving factors: nothing Exacerbating factors: nothing Context: recent illness Discharge from ear: no Associated symptoms: Reports no associated symptoms and ear or mastoid pain; Denies fever(s), headache(s), neck pain or tinnitus Treatment prior to arrival: eardrops Review of Systems Const: Denies: fever(s), chills, body aches, fatigue or malaise Eyes: Denies: change in vision, blurry vision, photophobia, floaters or seeing flashes ENMT: Reports: ear or mastoid pain and nasal congestion (improving); Denies: throat pain, odynophagia, dental pain, ear discharge, change in hearing, tinnitus, disequilibrium, epistaxis, post nasal drip or sinus pain Card: Denies: chest pain Resp: Denies: dyspnea GI: Denies: nausea or vomiting Musc: Denies: neck pain Neuro: Denies: headache(s) PFS ED PFSH: Medical History Constipation Depression Generalized anxiety disorder GERD (gastroesophageal reflux disease) Insomnia Lung nodule Left lower lobe - 7mm - repeat in 07/01 Major depressive disorder, recurrent episode, moderate with anxious distress Psychiatric care Surgical History H/O colonoscopy 03/14/2016 Repeat in 10 years H/O esophagogastroduodenoscopy (11/27/19) mild gastritis. History of dilation and curettage (~07/20/20) 07/20/2020: Hysteroscopy, dilation and curettage with myosure at [place], [place] by Dr. Finnegan. Family History Mother Cancer Lung cancer Denies family history of Diabetes Ovarian cyst CAD (coronary artery disease) Clotting disorder Hyperlipidemia Chronic kidney disease (CKD) Anesthesia complication Bleeding disorder Hypertension Thyroid disease Stroke Social History Smoking and tobacco status: never smoked Alcohol intake: never Female Reproductive History: Date of last menstrual period: 06/08/20 Physical Exam Const: COMMON NORMALS: no acute distress, patient oriented x3, no limitations and alert GENERAL APPEARANCE: cooperative ORIENTATION/CONSCIOUSNESS: Yes awake, Yes oriented to person, Yes oriented to place and Yes oriented to time HENMT: COMMON NORMALS: normocephalic, atraumatic, external ears normal, EAC's normal and Normal external nose present HEAD & SCALP: normal to inspection, normocephalic and atraumatic FACE & SINUS: normal facial exam and sinuses nontender NOSE: Normal external nose present EXTERNAL EAR: Yes external ears normal EXTERNAL AUDITORY CANAL: EAC's normal TYMPANIC MEMBRANE: other (bilateral R>L serous otitis media; no infection; normal landmarks) Eye: GENERAL EYE: appearance normal, both eyes and all related structures Neck/C-Spine: COMMON NORMALS: full ROM and no lymphadenopathy GENERAL: No anterior neck swelling and No submandibular swelling Neuro: JESS COMA SCALE: document GCS findings Jess coma scale eye opening: Spontaneous Jess coma scale verbal response: Orientated [place] coma scale motor response: Obey commands Jess coma scale total score: 15 COMMON NORMALS: patient oriented x3 and CN's II-XII intact bilaterally SENSORIUM/ORIENTATION: Yes alert, Yes oriented to person, Yes oriented to place and Yes oriented to time Skin: COMMON NORMALS: no rashes or lesions noted GENERAL SKIN EXAM: no rashes or lesions noted Course Vital Signs: Vital signs: Vital Signs Temperature 98.2 F 02/07/21 06:03 Pulse Rate 65 02/07/21 06:03 Respiratory Rate 14 02/07/21 06:03 Blood Pressure 138/88 02/07/21 06:03 Pulse Oximetry 97 02/07/21 06:03 Discharge Plan Discharge Patient Disposition: Home Clinical Impression: Acute serous otitis media of both ears without rupture Condition: Stable Prescriptions: No Action escitalopram oxalate [Lexapro] 5 mg tablet 5 mg PO .morning Qty: 30 RF: 1 hydroxyzine HCl 25 mg tablet 12.5 mg PO BID PRN (Reason: anxiety) Qty: 30 RF: 1 Linzess 72 mcg capsule 72 mcg PO QAM Qty: 30 RF: 5 pantoprazole 40 mg tablet,delayed release (DR/EC) See Rx Instructions .ROUTE .COMPLEX Qty: 30 RF: 5 sucralfate [Carafate] 1 gram tablet 1 g PO Q6H Qty: 120 RF: 3 eszopiclone [Lunesta] 3 mg tablet 3 mg PO BEDTIME Qty: 30 RF: 1 atorvastatin 40 mg tablet 40 mg PO DAILY 45 Days Qty: 45 RF: 0 meloxicam [Mobic] 15 mg tablet 15 mg PO DAILY 90 Days Qty: 90 RF: 0 Discharge Orders: Discharge ED (Routine); Ordered 02/07/21 Ordered By: Kisha Dorado Referrals: Geri Mukherjee DO [Primary Care Provider] - Patient Instructions: Fluid In The Ear (Serous Otitis Media) (ED) Coding Level of Care Code ED Communication And Outreach Manager for James Nathan
== END 2021-02-07 07:47 | disposition home or self-care (01) ==
PROVIDERS: Emergency Provider Physician Assistant; PCP Family Medicine
DX: H65.03 Acute serous otitis media, bilateral (principal)
CPT/HCPCS: 99281

== ENCOUNTER → 2021-02-10 11:37 | Outpatient (BNVA) | payer MEDICAID, SELFPAY | PROVIDERS: PCP Family Medicine; Visit Provider Family Medicine | DX: E78.5 Hyperlipidemia, unspecified (principal) | CPT/HCPCS: 80061 ==

== ENCOUNTER 2021-02-15 07:38 | Emergency (ER) | payer MEDICAID, SELFPAY ==
[2021-02-15 08:16] VITALS: BP 131/80; PULSE 71; RESP 16; TEMP 36.8; O2SAT 98; BMI 30.2
--- NOTE | 2021-02-15 08:30 | ED_ITS ---
HPI - General Adult General: Chief complaint: General Medical Stated complaint: N/V/D CANT EAT OR DRINK Time Seen by Provider: 02/15/21 08:28 History of Present Illness: HPI narrative: Patient states she is having problems keep anything down since yesterday. Said she is having a sinus drainage and having some sinus discomfort. Denies any fever chills diarrhea. Thinks cholesterol medicine might be part of the problem. Patient says she feels fine presently was able to drink some fluid this morning said that yesterday it was worse as far as keep anything down. She is wondering maybe if she had Covid even though she denies majority symptoms. Onset (ago): day(s) Severity: mild Associated symptoms: Reports nausea and vomiting; Deny chest pain, dyspnea, headache(s) or rash Review of Systems Const: Denies: fever(s), chills or body aches Eyes: Denies: change in vision or blurry vision ENMT: Reports: nasal congestion and sinus pain; Denies: throat pain Card: Denies: chest pain or dyspnea on exertion Resp: Denies: dyspnea, productive cough or non-productive cough GI: Reports: nausea and vomiting Musc: Denies: extremity pain Skin/Breast: Denies: rash Neuro: Denies: headache(s) Psych: Denies: anxiety or depression Wally/Lymph: Denies: easy bruising PFSH ED PFSH: Medical History Constipation Depression Generalized anxiety disorder GERD (gastroesophageal reflux disease) Insomnia Lung nodule Left lower lobe - 7mm - repeat in 07/01 Major depressive disorder, recurrent episode, moderate with anxious distress Psychiatric care Surgical History H/O colonoscopy 03/14/2016 Repeat in 10 years H/O esophagogastroduodenoscopy (11/27/19) mild gastritis. History of dilation and curettage (~07/20/20) 07/20/2020: Hysteroscopy, dilation and curettage with myosure at [place], [place] by Dr. Finnegan. Family History Mother Cancer Lung cancer Denies family history of Diabetes Ovarian cyst CAD (coronary artery disease) Clotting disorder Hyperlipidemia Chronic kidney disease (CKD) Anesthesia complication Bleeding disorder Hypertension Thyroid disease Stroke Social History Smoking and tobacco status: former smoker Alcohol intake: never Female Reproductive History: Date of last menstrual period: 06/08/20 Physical Exam Const: COMMON NORMALS: no acute distress GENERAL APPEARANCE: cooperative HENMT: COMMON NORMALS: normocephalic, external ears normal, EAC's normal and Normal external nose present HEAD & SCALP: normal to inspection and normocephalic FACE & SINUS: sinus tenderness frontal and maxillary NOSE: Normal external nose present and Nasal discharge present clear EXTERNAL EAR: Yes external ears normal EXTERNAL AUDITORY CANAL: EAC's normal MOUTH: Normal oral and palatal mucosa present THROAT: posterior oropharynx normal Eye: COMMON NORMALS: conjunctivae normal CONJUNCTIVA: Yes conjunctivae normal Lymph: LYMPHATIC: no lymphadenopathy noted Chest: COMMONS NORMALS: normal inspection of the chest Resp: COMMON NORMALS: normal respiratory effort, No retractions and No use of accessory muscles GI: COMMON NORMALS: Soft to palpation INSPECTION: Yes normal to inspection PALPATION: Yes Soft to palpation Extremity: COMMON NORMALS: normal to inspection Skin: COMMON NORMALS: no rashes or lesions noted GENERAL SKIN EXAM: no rashes or lesions noted Course Vital Signs: Vital signs: Vital Signs Temperature 98.2 F 02/15/21 08:16 Pulse Rate 71 02/15/21 08:16 Respiratory Rate 16 02/15/21 08:16 Blood Pressure 131/80 02/15/21 08:16 Pulse Oximetry 98 02/15/21 08:16 Discharge Plan Discharge Patient Disposition: Home Clinical Impression: Pain of maxillary sinus, Upper respiratory symptom, Gastroenteritis Condition: Stable Prescriptions: New Zofran 4 mg tablet 4 mg PO Q8H 3 Days Qty: 9 RF: 0 Augmentin 875-125 mg tablet 1 tab PO BID Qty: 14 RF: 0 No Action escitalopram oxalate [Lexapro] 5 mg tablet 5 mg PO .morning Qty: 30 RF: 1 hydroxyzine HCl 25 mg tablet 12.5 mg PO BID PRN (Reason: anxiety) Qty: 30 RF: 1 fluticasone propionate [Flonase Allergy Relief] 50 mcg/actuation spray,suspension 2 spray intranasal DAILY Qty: 16 RF: 0 Linzess 72 mcg capsule 72 mcg PO QAM Qty: 30 RF: 5 pantoprazole 40 mg tablet,delayed release (DR/EC) 40 mg PO BID Qty: 60 RF: 0 meloxicam [Mobic] 15 mg tablet 15 mg PO DAILY 90 Days Qty: 90 RF: 0 sucralfate [Carafate] 1 gram tablet 1 g PO Q6H Qty: 120 RF: 0 eszopiclone [Lunesta] 3 mg tablet 3 mg PO BEDTIME Qty: 30 RF: 3 atorvastatin 40 mg tablet 40 mg PO DAILY 45 Days Qty: 45 RF: 0 Discharge Orders: Discharge ED (Routine); Ordered 02/15/21 Ordered By: Nazario Cuenca Referrals: Geri Mukherjee DO [Primary Care Provider] - Discharge Diet: Usual diet Discharge Activity: Increase activity as tolerated Patient Instructions: Sinusitis (ED), Gastroenteritis (ED) Activity Restrictions/Additional Instructions: Follow-up with medical provider as directed. Take medications as prescribed. Return to the ER or your medical provider if condition worsens. Please read and understand discharge instructions. If any questions ask please. Coding Level of Care Code ED Traveling Inventory Associate for Rafaelg Fwd Exam Comprehensive
== END 2021-02-15 09:00 | disposition home or self-care (01) ==
PROVIDERS: Emergency Provider Nurse Practitioner Family; PCP Family Medicine
DX: K52.9 Noninfective gastroenteritis and colitis, unspecified (principal); R68.84 Jaw pain; R68.89 Other general symptoms and signs; Z87.891 Personal history of nicotine dependence
CPT/HCPCS: 99281

== ENCOUNTER → 2021-02-17 08:21 | Outpatient (BNVA) | payer MEDICAID, SELFPAY | PROVIDERS: PCP Family Medicine; Visit Provider Nurse Practitioner Psychiatric/Mental Health | DX: F33.1 Major depressive disorder, recurrent, moderate (principal); F41.1 Generalized anxiety disorder; G47.09 Other insomnia; Z63.4 Disappearance and death of family member | CPT/HCPCS: 99214 ==

== ENCOUNTER 2021-03-12 08:58 | Emergency (ER) | payer MEDICAID, SELFPAY ==
[2021-03-12 09:07] VITALS: BP 110/78; PULSE 93; RESP 14; TEMP 36.8; O2SAT 96; BMI 28.8
--- NOTE | 2021-03-12 09:22 | W.ED.GENADLT ---
HPI - General Adult General: Chief complaint: Ear Stated complaint: Ear, neck, and back hurting Time Seen by Provider: 03/12/21 09:19 History of Present Illness: Patient complains of pain in front of left ear when opening closing jaw also pain in upper part of her back neck area. Has seen specialist and primary care has been the ER and she said she has had very little relief. She says current antibiotic is not helping her with her infection she has. Associated symptoms: Reports nausea and vomiting; Deny chest pain, dyspnea, headache(s) or rash Review of Systems Const: Denies: fever(s), chills or body aches Eyes: Denies: eye discomfort ENMT: Reports: nasal congestion and other (Jaw pain left side); Denies: throat pain Card: Reports: dyspnea on exertion; Denies: chest pain Resp: Denies: dyspnea GI: Reports: nausea and vomiting; Denies: abdominal pain Musc: Reports: neck pain (Muscles are sore) and back pain Skin/Breast: Denies: rash Neuro: Denies: headache(s) Psych: Denies: depression or suicidal ideation PFSH ED PFSH: Medical History Bereavement Sudden loss of 29 yr old daughter 01/03/21 Chronic neck pain Constipation Depression Generalized anxiety disorder GERD (gastroesophageal reflux disease) Insomnia Lung nodule Left lower lobe - 7mm - repeat in 07/01 Major depressive disorder, recurrent episode, moderate with anxious distress Psychiatric care TMJ (temporomandibular joint syndrome) Surgical History H/O colonoscopy 03/14/2016 Repeat in 10 years H/O esophagogastroduodenoscopy (11/27/19) mild gastritis. History of dilation and curettage (~07/20/20) 07/20/2020: Hysteroscopy, dilation and curettage with myosure at [place], [place] by Dr. Finnegan. Family History Mother Cancer Lung cancer Denies family history of Diabetes Ovarian cyst CAD (coronary artery disease) Clotting disorder Hyperlipidemia Chronic kidney disease (CKD) Anesthesia complication Bleeding disorder Hypertension Thyroid disease Stroke Social History Smoking and tobacco status: former smoker Alcohol intake: never Female Reproductive History: Date of last menstrual period: 06/08/20 Physical Exam Const: COMMON NORMALS: no acute distress, patient oriented x3 and alert HENMT: COMMON NORMALS: normocephalic, EAC's normal and TM's normal bilaterally HEAD & SCALP: normocephalic EXTERNAL AUDITORY CANAL: EAC's normal TYMPANIC MEMBRANE: TM's normal bilaterally OTHER: Patient has tenderness TMJ left side. Gum does not appear swelled inside. Eye: COMMON NORMALS: EOMs intact bilaterally Neck/C-Spine: COMMON NORMALS: no JVD OTHER: Trapezius are tender on both sides and tight. Resp: COMMON NORMALS: normal respiratory effort and No use of accessory muscles Cardio: COMMON NORMALS: no JVD GI: INSPECTION: Yes normal to inspection Extremity: COMMON NORMALS: normal to inspection and full ROM Neuro: COMMON NORMALS: patient oriented x3 SENSORIUM/ORIENTATION: Yes alert Psych: COMMON NORMALS: mental status grossly normal Skin: COMMON NORMALS: no rashes or lesions noted GENERAL SKIN EXAM: no rashes or lesions noted Course Vital Signs: Vital signs: Vital Signs Temperature 98.2 F 03/12/21 09:07 Pulse Rate 93 03/12/21 09:07 Respiratory Rate 14 03/12/21 09:07 Blood Pressure 110/78 03/12/21 09:07 Pulse Oximetry 96 03/12/21 09:07 [facility] - General Adult Medical Decision Making Patient with trapezius tightness, upper respiratory infection and TMJ. Patient has seen PCP and specialist and continues with discomfort without significant changes. Patient states she could not tolerate the baclofen. Discharge Plan Discharge Patient Disposition: Home Clinical Impression: TMJ (temporomandibular joint syndrome), URI (upper respiratory infection) Condition: Stable Prescriptions: New Decadron 6 mg tablet 6 mg PO DAILY Qty: 7 0RF Bactrim DS 800-160 mg tablet 1 tab PO BID 7 Days Qty: 14 0RF cyclobenzaprine 5 mg tablet 5 mg PO TID PRN (Reason: muscle spasm) Qty: 10 0RF No Action hydroxyzine HCl 25 mg tablet 12.5 mg PO BID PRN (Reason: anxiety) Qty: 30 1RF Rx Instructions: May take half tablet twice per day as needed for anxiety escitalopram oxalate [Lexapro] 5 mg tablet 5 mg PO .morning Qty: 30 3RF Rx Instructions: Take one tablet every morning atorvastatin 40 mg tablet 40 mg PO DAILY 45 Days Qty: 90 1RF Linzess 72 mcg capsule 72 mcg PO QAM Qty: 30 5RF pantoprazole 40 mg tablet,delayed release (DR/EC) 40 mg PO BID Qty: 60 3RF eszopiclone [Lunesta] 3 mg tablet 3 mg PO BEDTIME Qty: 30 3RF Rx Instructions: Take one tablet at bedtime lactulose 10 gram/15 mL solution 15 ml PO DAILY PRN (Reason: constipation) Qty: 473 2RF Discharge Orders: Discharge ED (Routine); Ordered 03/12/21 Ordered By: Nazario Cuenca Referrals: Geri Mukherjee DO [Primary Care Provider] - Discharge Diet: Usual diet Discharge Activity: Resume usual activity Activity Restrictions/Additional Instructions: Follow-up with medical provider as directed. Take medications as prescribed. Return to the ER or your medical provider if condition worsens. Please read and understand discharge instructions. If any questions ask please. Take cyclobenzaprine for your neck tightness and pain. Take Decadron for TMJ inflammation. Stop current antibiotic and take new antibiotic for upper respiratory infection. Follow-up with specialist as directed. Coding Level of Care Code ED Glazing Superintendent for James Nathan
== END 2021-03-12 10:02 | disposition home or self-care (01) ==
PROVIDERS: Emergency Provider Nurse Practitioner Family; PCP Family Medicine
DX: M26.609 Unspecified temporomandibular joint disorder, unspecified side (principal); J06.9 Acute upper respiratory infection, unspecified; Z87.891 Personal history of nicotine dependence
CPT/HCPCS: 99281

== ENCOUNTER 2021-03-20 10:46 | Emergency (ER) | payer MEDICAID, SELFPAY ==
[2021-03-20 10:58] VITALS: BP 105/74; PULSE 105; RESP 18; TEMP 36.6; O2SAT 99; BMI 28.8
--- NOTE | 2021-03-20 11:08 | CTR_ITS ---
PROCEDURE INFORMATION: Exam: CT Cervical Spine Without Contrast Exam date and time: 03/20/2021 11:08 AM Age: 55 years old Clinical indication: Neck pain; Additional info: Neck pain with hearing changes TECHNIQUE: Imaging protocol: Computed tomography images of the cervical spine without contrast. Axial, coronal and sagittal reformatted images were created and reviewed. Radiation optimization: All CT scans at this facility use at least one of these dose optimization techniques: automated exposure control; mA and/or kV adjustment per patient size (includes targeted exams where dose is matched to clinical indication); or iterative reconstruction. COMPARISON: CT chest w con* [id number] 07/03/2019 8:38 AM RADIATION DOSE METRICS: Total DLP (mGy-cm): 338.59 FINDINGS: Bones/joints: Straightening of the normal cervical lordosis. No CT evidence of acute fracture, dislocation or subluxation. Alignment anatomic. Vertebral body heights maintained. Discs/Spinal canal/Neural foramina: Mild multilevel spondylosis. No significant spinal canal or neural foraminal stenosis. Lungs: Grossly unremarkable. Soft tissues: Grossly unremarkable. CT/CT cervical spin wo con* [id number]: 1[address] No [address] evidence of acute cervical spine pathology. 2. Additional findings, as above.
--- NOTE | 2021-03-20 11:09 | ED_ITS ---
HPI - Neck Pain/Injury General: Chief Complaint: Neck Pain/Injury Stated Complaint: neck pain Time Seen by Provider: 03/20/21 11:03 Source: patient Mode of arrival: ambulatory Limitations: no limitations History of Present Illness: 55-year-old female presents to the ER today for neck pain x1 month. Patient reports this is continued to worsen over that time and she is not getting any relief anymore. Patient reports she saw her PCP and a chiropractor neither of which have helped. Patient was also seen in the ER and given steroids and muscle relaxer with no improvement. Patient reports she is experienced some hearing loss in her right ear from this neck pain. She denies having had any images in the past. Patient denies any injury. 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 Onset (ago): month(s) (1) Severity: moderate Quality: aching and tingling Duration: constant Relieving factors: none Exacerbating factors: movement of neck Associated symptoms: Reports other (hearing loss) Treatments prior to arrival: ibuprofen, prescription analgesic and other (chiropractor) Review of Systems General: Reports: 10 or more systems reviewed and unremarkable except in HPI and below PFSH ED PFSH: Medical History Bereavement Sudden loss of 29 yr old daughter 01/03/21 Chronic neck pain Constipation Depression Generalized anxiety disorder GERD (gastroesophageal reflux disease) Insomnia Lung nodule Left lower lobe - 7mm - repeat in 07/01 Major depressive disorder, recurrent episode, moderate with anxious distress Psychiatric care TMJ (temporomandibular joint syndrome) Surgical History H/O colonoscopy 03/14/2016 Repeat in 10 years H/O esophagogastroduodenoscopy (11/27/19) mild gastritis. History of dilation and curettage (~07/20/20) 07/20/2020: Hysteroscopy, dilation and curettage with myosure at [place], [place] by Dr. Finnegan. Family History Mother Cancer Lung cancer Denies family history of Diabetes Ovarian cyst CAD (coronary artery disease) Clotting disorder Hyperlipidemia Chronic kidney disease (CKD) Anesthesia complication Bleeding disorder Hypertension Thyroid disease Stroke Social History Smoking and tobacco status: former smoker Alcohol intake: never Female Reproductive History: Date of last menstrual period: 06/08/20 Physical Exam Const: COMMON NORMALS: no acute distress, average body habitus, patient oriented x3, no limitations, healthy appearing, alert and well nourished HENMT: COMMON NORMALS: normocephalic and atraumatic HEAD & SCALP: normocephalic and atraumatic Eye: COMMON NORMALS: conjunctivae normal CONJUNCTIVA: Yes conjunctivae normal Neck/C-Spine: COMMON NORMALS: full ROM (pain illicited with rotation both rig ht and left), no lymphadenopathy and supple Resp: COMMON NORMALS: normal respiratory effort and No retractions Cardio: COMMON NORMALS: regular rate RATE: regular rate Extremity: COMMON NORMALS: normal to inspection and full ROM Neuro: COMMON NORMALS: patient oriented x3, moves all extremities, no focal motor deficits and no sensory deficits noted SENSORIUM/ORIENTATION: Yes alert Psych: COMMON NORMALS: mental status grossly normal, Normal thought process present, cooperative and normal affect THOUGHT PROCESS: Normal thought process present Skin: COMMON NORMALS: no rashes or lesions noted GENERAL SKIN EXAM: no rashes or lesions noted Course ED course: Patient denies having had any images of the neck. We will go ahead with a CT at this time given the neck pain that is worsening. Patient reports hearing loss also associated. Vital Signs: Vital signs: Vital Signs Temperature 98 F 03/20/21 10:58 Pulse Rate 99 03/20/21 11:17 Respiratory Rate 14 03/20/21 11:17 Blood Pressure 104/78 03/20/21 11:17 Pulse Oximetry 99 03/20/21 11:17 MDM - Neck Pain/Injury Medical Decision Making 55-year-old female presents to the ER today for neck pain x1 month. Patient reports she is seeing a chiropractor and her PCP with no improvement. Patient reports some hearing loss in her right ear. Patient does not appear in any distress today in the ER. We went ahead and got a CT as she has not had any imaging done at this time and given the hearing loss this is appropriate. CT is mostly unremarkable other than some straightening of the cervical spine likely due to muscle spasm. Discussed findings with patient. We will switch her to Robaxin from the cyclobenzaprine as she felt that was not effective. Discussed patient should follow-up with PCP for possible further imaging. Rest recommended. Return to the ER if new or worsening symptoms. Patient verbalized understanding and is in agreement with the treatment plan. Lab Data Radiology Impressions Cervical Spine CT 03/20/21 11:[address]: [address] evidence of acute cervical spine pathology. 2. Additional findings, as above. Critical Care Time Critical Care Time: Critical Care Time: No Discharge Plan Discharge Patient Disposition: Home Clinical Impression: Chronic neck pain Condition: Stable Prescriptions: New methocarbamol 750 mg tablet 750 mg PO Q8H Qty: 21 0RF Discontinued cyclobenzaprine 5 mg tablet 5 mg PO TID PRN (Reason: muscle spasm) Qty: 10 0RF No Action hydroxyzine HCl 25 mg tablet 12.5 mg PO BID PRN (Reason: anxiety) Qty: 30 1RF Rx Instructions: May take half tablet twice per day as needed for anxiety escitalopram oxalate [Lexapro] 5 mg tablet 5 mg PO .morning Qty: 30 3RF Rx Instructions: Take one tablet every morning atorvastatin 40 mg tablet 40 mg PO DAILY 45 Days Qty: 90 1RF Linzess 72 mcg capsule 72 mcg PO QAM Qty: 30 5RF pantoprazole 40 mg tablet,delayed release (DR/EC) 40 mg PO BID Qty: 60 3RF eszopiclone [Lunesta] 3 mg tablet 3 mg PO BEDTIME Qty: 30 3RF Rx Instructions: Take one tablet at bedtime lactulose 10 gram/15 mL solution 15 ml PO DAILY PRN (Reason: constipation) Qty: 473 2RF Decadron 6 mg tablet 6 mg PO DAILY Qty: 7 0RF Discharge Orders: Discharge ED (Routine); Ordered 03/20/21 Ordered By: Freya Mann Referrals: Geri Mukherjee DO [Primary Care Provider] - Discharge Diet: Usual diet Discharge Activity: Resume usual activity Patient Instructions: Opioid Safety Activity Restrictions/Additional Instructions: Take Robaxin as prescribed. Warm, moist heat recommended for symptomatic relief. Topical muscle rub okay to use but do not use with heat or ice. Follow-up with PCP in 5 to 7 days. Return to the ER with new or worsening symptoms. Coding Level of Care Code ED Electronic Resources Librarian for Chg Fwd Exam Comprehensive
[2021-03-20 11:17] VITALS: BP 104/78; PULSE 99; RESP 14; O2SAT 99
== END 2021-03-20 12:33 | disposition home or self-care (01) ==
PROVIDERS: Emergency Provider Physician Assistant; PCP Family Medicine
DX: G89.29 Other chronic pain (principal); M54.2 Cervicalgia; Z87.891 Personal history of nicotine dependence
CPT/HCPCS: 72125; 99283

== ENCOUNTER → 2021-03-31 07:36 | Outpatient (BNVA) | payer MEDICAID, SELFPAY | PROVIDERS: PCP Family Medicine; Visit Provider Nurse Practitioner Psychiatric/Mental Health | DX: F33.1 Major depressive disorder, recurrent, moderate (principal); F41.1 Generalized anxiety disorder; G47.09 Other insomnia; Z63.4 Disappearance and death of family member | CPT/HCPCS: 99214 ==

== ENCOUNTER → 2021-04-15 13:46 | Outpatient (BNVA) | payer MEDICAID, SELFPAY | PROVIDERS: PCP Family Medicine; Visit Provider Counselor Mental Health | DX: Z63.4 Disappearance and death of family member (principal); F33.1 Major depressive disorder, recurrent, moderate | CPT/HCPCS: 90834 ==

== ENCOUNTER 2021-04-27 12:34 | Outpatient (CLI) | payer MEDICAID, SELFPAY ==
--- NOTE | 2021-04-27 13:00 | MR_ITS ---
WS: [id number] MRI CERVICAL SPINE NONCONTRAST TECHNIQUE: Sagittal T1, T2 and STIR imaging. Axial T2, gradient, and fiesta imaging. CLINICAL INFORMATION: chronic neck pain COMPARISON: CT cervical March 20, 2021 FINDINGS: Straightening of the normal cervical lordosis. Mild disc bulging worse at C4-C5. Alignment is unchang ed from March 20, 2021. C2-C3: Normal. C3-C4: No significant disc bulging. Mild facet arthropathy. Spinal canal and foramen are patent. C4-C5: Mild disc osteophytic ridging with tiny RIGHT pericentral disc osteophyte protrusion. Mild fac et arthropathy. Mild LEFT and no significant RIGHT foraminal narrowing. Spinal canal is patent. C5-C6: Tiny RIGHT pericentral disc osteophyte protrusion with osteophytic ridging. Mild LEFT and no s ignificant RIGHT foraminal narrowing. Mild LEFT facet arthropathy. C6-C7: Mild osteophytic ridging. Mild LEFT foraminal narrowing. Spinal canal and RIGHT foramen are pa tent. Mild facet arthropathy. C7-T1: Slight anterolisthesis C7 on T1. Mild LEFT and no significant RIGHT foraminal narrowing. Spina l canal is patent. Mild facet arthropathy Visualized brain stem structures: Normal. Prevertebral soft tissues: Normal. MR/MR cervical spin wo con* [id number] IMPRESSION: 1. Straightening of the normal cervical lordosis. 2. Tiny shallow RIGHT pericentral disc osteophyte protrusions C4-C5 and C5-C6 with slight contact of the cervical cord. No significant central canal stenosis . 3. Mild LEFT C4-C5, LEFT C5-C6, and LEFT C6-C7 bony foraminal narrowing. 4. Mild facet arthropathy C4-C5 and C5-C6.
== END 2021-04-27 12:35 | disposition home or self-care (01) ==
LOC: RAD 12:35
PROVIDERS: PCP Family Medicine; Visit Provider Family Medicine
DX: M50.221 Other cervical disc displacement at C4-C5 level (principal); M50.222 Other cervical disc displacement at C5-C6 level; G89.29 Other chronic pain
CPT/HCPCS: 72141

== ENCOUNTER → 2021-05-04 09:05 | Outpatient (BNVA) | payer MEDICAID, SELFPAY | PROVIDERS: PCP Family Medicine; Referring Provider Family Medicine; Visit Provider Anesthesiology Pain Medicine | DX: G89.29 Other chronic pain (principal); M50.90 Cervical disc disorder, unspecified, unspecified cervical region; M47.812 Spondylosis without myelopathy or radiculopathy, cervical region; Z87.891 Personal history of nicotine dependence; Z79.891 Long term (current) use of opiate analgesic | CPT/HCPCS: 99204 ==

== ENCOUNTER 2021-05-18 12:11 | Outpatient (RCR) | payer MEDICAID, SELFPAY | END 2021-06-11 23:59 | disposition home or self-care (01) | LOC: SPT 12:11 | PROVIDERS: PCP Family Medicine; Referring Provider Anesthesiology Pain Medicine; Visit Provider Anesthesiology Pain Medicine | DX: M54.2 Cervicalgia (principal); G89.29 Other chronic pain | CPT/HCPCS: 97161 ==

== ENCOUNTER → 2021-05-19 07:36 | Outpatient (BNVA) | payer MEDICAID, SELFPAY | PROVIDERS: PCP Family Medicine; Visit Provider Nurse Practitioner Psychiatric/Mental Health | DX: F33.1 Major depressive disorder, recurrent, moderate (principal); F41.1 Generalized anxiety disorder; Z63.4 Disappearance and death of family member; G47.09 Other insomnia | CPT/HCPCS: 99214 ==

== ENCOUNTER → 2021-05-23 09:48 | Outpatient (BNVA) | payer MEDICAID, SELFPAY | PROVIDERS: PCP Family Medicine; Visit Provider Anesthesiology Pain Medicine | DX: G89.29 Other chronic pain (principal); M50.90 Cervical disc disorder, unspecified, unspecified cervical region; M47.812 Spondylosis without myelopathy or radiculopathy, cervical region; Z87.891 Personal history of nicotine dependence | CPT/HCPCS: 99214 ==

== ENCOUNTER 2021-05-24 08:10 | Emergency (ER) | payer MEDICAID, SELFPAY ==
[2021-05-24 08:23] VITALS: BP 148/85; PULSE 105; RESP 18; O2SAT 100; BMI 28.1
--- NOTE | 2021-05-24 08:25 | W.ED.NECK ---
HPI - Neck Pain/Injury General: Chief Complaint: Neck Pain/Injury Stated Complaint: severe neck pain Time Seen by Provider: 05/24/21 08:14 Source: patient Mode of arrival: ambulatory Limitations: no limitations History of Present Illness: 55-year-old female patient is reporting pain in her neck. She has had chronic pain has been going to the pain clinic she had an MRI she is convinced the MRI is not accurate based on her sensation of something moving in her neck. She is scheduled to have epidural cervical injection. No recent trauma. She occasionally will get pain shooting into her right arm. No history of cervical spince surgeries. She is also complaining of dizziness at times exclusively associated with movement of the head. If she lays still does not move her head she denies any dizziness she will get vertiginous symptoms when she sits up or moves her head or turns. MD complaint: neck pain Onset (ago): week(s) Radiation: right upper extremity Severity: mild Quality: sharp and tingling Duration: intermittent Relieving factors: none Exacerbating factors: movement of neck Associated symptoms: Reports tingling; Denies dysphagia, difficulty walking, dizziness, fevers/chills, headache(s), nausea, swollen glands or weakness Treatments prior to arrival: acetaminophen and ibuprofen Review of Systems Const: Denies: fever(s), chills, body aches, change in appetite, fatigue or malaise ENMT: Denies: throat pain, ear or mastoid pain, nasal discharge or nasal congestion Card: Denies: chest pain or dyspnea on exertion Resp: Denies: dyspnea, productive cough or non-productive cough GI: Denies: nausea or dysphagia : Denies: flank pain or dysuria Musc: Reports: neck pain and extremity pain Skin/Breast: Denies: rash or pruritus Neuro: Denies: headache(s), difficulty walking or dizziness PFSH ED PFSH: Medical History Bereavement Sudden loss of 29 yr old daughter 01/03/21 Chronic neck pain Constipation Depression Generalized anxiety disorder GERD (gastroesophageal reflux disease) Insomnia Lung nodule Left lower lobe - 7mm - repeat in 07/01 Major depressive disorder, recurrent episode, moderate with anxious distress Psychiatric care TMJ (temporomandibular joint syndrome) Surgical History H/O colonoscopy 03/14/2016 Repeat in 10 years H/O esophagogastroduodenoscopy (11/27/19) mild gastritis. History of dilation and curettage (~07/20/20) 07/20/2020: Hysteroscopy, dilation and curettage with myosure at [place], [place] by Dr. Finnegan. Family History Mother Cancer Lung cancer Other Major depressive disorder, recurrent episode, moderate with anxious distress Denies family history of Diabetes Ovarian cyst CAD (coronary artery disease) Clotting disorder Hyperlipidemia Chronic kidney disease (CKD) Anesthesia complication Bleeding disorder Hypertension Thyroid disease Stroke Social History Smoking and tobacco status: former smoker Second hand smoke exposure: No Alcohol intake: never History of recent travel: No Female Reproductive History: Date of last menstrual period: 06/08/20 Physical Exam Const: COMMON NORMALS: no acute distress and patient oriented x3 GENERAL APPEARANCE: cooperative, comfortable and well kempt NUTRITIONAL APPEARANCE: obese ORIENTATION/CONSCIOUSNESS: Yes awake, Yes oriented to person, Yes oriented to place and Yes oriented to time HENMT: COMMON NORMALS: normocephalic, atraumatic, hearing grossly normal bilaterally, EAC's normal, TM's normal bilaterally and Normal external nose present HEAD & SCALP: normocephalic and atraumatic NOSE: Normal external nose present EXTERNAL AUDITORY CANAL: EAC's normal TYMPANIC MEMBRANE: TM's normal bilaterally MOUTH: Normal oral and palatal mucosa present, lip normal and tongue normal THROAT: posterior oropharynx normal and tonsils normal Eye: COMMON NORMALS: Equal, round and reactive pupils present, EOMs intact bilaterally, conjunctivae normal and no scleral icterus CONJUNCTIVA: Yes conjunctivae normal PUPIL: Yes Equal, round and reactive pupils present Neck/C-Spine: OTHER: Patient demonstrates range of motion without significant pain but does induce vertigo Lymph: LYMPHATIC: no lymphadenopathy noted Resp: COMMON NORMALS: normal respiratory effort, No retractions, No use of accessory muscles and clear to auscultation bilaterally AUSCULTATION: clear to auscultation bilaterally Cardio: COMMON NORMALS: regular rate, regular rhythm and No murmurs present (Cardio) RATE: regular rate RHYTHM: regular rhythm HEART SOUNDS: no murmurs Back/Pelvis: LUMBAR SPINE/LOWER BACK: Yes normal to inspection Extremity: COMMON NORMALS: normal to inspection, capillary refill normal, no clubbing, cyanosis or edema, no calf tenderness and no pedal edema Neuro: COMMON NORMALS: patient oriented x3 SENSORIUM/ORIENTATION: Yes oriented to person, Yes oriented to place and Yes oriented to time OTHER: No focal neurologic deficits noted patient demonstrates full use of upper and lower extremities no facial droop no difficulty with vision no ataxia. Psych: APPEARANCE: Yes well kempt Skin: COMMON NORMALS: no rashes or lesions noted GENERAL SKIN EXAM: no rashes or lesions noted Course Vital Signs: Vital signs: Vital Signs Pulse Rate 105 H 05/24/21 08:23 Respiratory Rate 18 05/24/21 08:23 Blood Pressure 148/85 05/24/21 08:23 Pulse Oximetry 100 05/24/21 08:23 MDM - Neck Pain/Injury Medical Decision Making MRI reviewed. Discussed with the patient that the MRI is consistent with what was previously explained to her and her best bet is to continue to follow-up with a pain clinic and get cervical epidural. She does describe some mild positional vertigo for which we gave her meclizine. Have her follow-up with the pain clinic or primary care if she wishes to pursue it further another option would be to request a referral to neurosurgery or orthopedic spine surgery. However I told her after reviewing the MRI report it is unlikely that she would be a good surgical candidate. Medical Records I reviewed the patient's medical records. Discharge Plan Discharge Patient Disposition: Home Clinical Impression: Neck pain, Benign paroxysmal positional vertigo Condition: Stable Prescriptions: New meclizine 25 mg tablet 25 mg PO Q6H PRN (Reason: dizziness) Qty: 20 0RF No Action hydroxyzine HCl 25 mg tablet 12.5 mg PO BID PRN (Reason: anxiety) Qty: 30 1RF Rx Instructions: May take half tablet twice per day as needed for anxiety atorvastatin 40 mg tablet 40 mg PO DAILY 45 Days Qty: 90 1RF escitalopram oxalate [Lexapro] 10 mg tablet 10 mg PO .morning Qty: 30 3RF Rx Instructions: Take one tablet every morning tizanidine 2 mg tablet 2 mg PO TID PRN (Reason: muscle spasticity) Qty: 90 0RF gabapentin 300 mg capsule 300 mg PO TID Qty: 90 0RF cyclobenzaprine 10 mg tablet 10 mg PO TID PRN (Reason: muscle spasm) Qty: 60 0RF eszopiclone [Lunesta] 3 mg tablet 3 mg PO BEDTIME Qty: 30 3RF Rx Instructions: Take one tablet at bedtime lactulose 10 gram/15 mL solution 15 ml PO DAILY PRN (Reason: constipation) Qty: 473 2RF Linzess 72 mcg capsule 72 mcg PO QAM Qty: 30 5RF pantoprazole 40 mg tablet,delayed release (DR/EC) 40 mg PO BID Qty: 60 3RF Discharge Orders: Discharge ED (Routine); Ordered 05/24/21 Ordered By: Charly Coleman Referrals: Geri Mukherjee DO [Primary Care Provider] - Patient Instructions: Opioid Safety Activity Restrictions/Additional Instructions: Follow-up with pain clinic as previously scheduled. Coding Level of Care Code ED Record Changer Tester for James Nathan
== END 2021-05-24 08:54 | disposition home or self-care (01) ==
PROVIDERS: Emergency Provider Family Medicine; PCP Family Medicine
DX: M54.2 Cervicalgia (principal); H81.10 Benign paroxysmal vertigo, unspecified ear
CPT/HCPCS: 99282

== ENCOUNTER → 2021-06-01 13:15 | Outpatient (BNVA) | payer MEDICAID, SELFPAY | PROVIDERS: PCP Family Medicine; Visit Provider Anesthesiology Pain Medicine | DX: G89.29 Other chronic pain (principal); Z87.891 Personal history of nicotine dependence; M47.812 Spondylosis without myelopathy or radiculopathy, cervical region | CPT/HCPCS: 64490; 64491; 64492; J3490 ==

== ENCOUNTER → 2021-06-15 07:44 | Outpatient (BNVA) | payer MEDICAID, SELFPAY | PROVIDERS: PCP Family Medicine; Visit Provider Otolaryngology | DX: G89.29 Other chronic pain (principal); M50.90 Cervical disc disorder, unspecified, unspecified cervical region; M47.812 Spondylosis without myelopathy or radiculopathy, cervical region; Z87.891 Personal history of nicotine dependence; H92.02 Otalgia, left ear; M26.623 Arthralgia of bilateral temporomandibular joint | CPT/HCPCS: 99213; 99214 ==

== ENCOUNTER 2021-06-16 14:56 | Outpatient (CLI) | payer MEDICAID, SELFPAY ==
--- NOTE | 2021-06-16 15:07 | MM_ITS ---
WS: [id number] BILATERAL 3D TOMOSYNTHESIS DIGITAL SCREENING MAMMOGRAPHY WITH CAD CLINICAL INFORMATION: screening mammogram HISTORY: Screening mammogram. No current complaints. COMPARISON: January 18, 2026 TECHNIQUE: Bilateral CC and MLO views. FINDINGS: Scattered fibroglandular densities bilaterally. Incidental punctate calcification LEFT breast. Incide ntal intramammary lymph node LEFT breast with a fatty hilum No suspicious focal mass, asymmetry, calc ifications, or architectural distortion. No evidence of malignancy. MM/[id number] IMPRESSION: BI-RADS: 2-Benign FOLLOW UP: 1 Year Follow-up Recommend return to annual screening mammography.
== END 2021-06-16 14:57 | disposition home or self-care (01) ==
LOC: RAD 14:57
PROVIDERS: PCP Family Medicine; Visit Provider Family Medicine
DX: Z12.31 Encounter for screening mammogram for malignant neoplasm of breast (principal)
CPT/HCPCS: 77063; 77067

== ENCOUNTER → 2021-06-22 13:53 | Outpatient (BNVA) | payer MEDICAID, SELFPAY | PROVIDERS: PCP Family Medicine; Visit Provider Anesthesiology Pain Medicine | DX: G89.29 Other chronic pain (principal); Z87.891 Personal history of nicotine dependence; M47.812 Spondylosis without myelopathy or radiculopathy, cervical region | CPT/HCPCS: 64633; 64634; J1030 ==

== ENCOUNTER → 2021-07-06 13:51 | Outpatient (BNVA) | payer MEDICAID, SELFPAY | PROVIDERS: PCP Family Medicine; Visit Provider Anesthesiology Pain Medicine | DX: G89.29 Other chronic pain (principal); Z87.891 Personal history of nicotine dependence; M47.812 Spondylosis without myelopathy or radiculopathy, cervical region | CPT/HCPCS: 64633; 64634; J1030 ==

== ENCOUNTER → 2021-07-12 09:08 | Outpatient (BNVA) | payer MEDICAID, SELFPAY | PROVIDERS: PCP Family Medicine; Visit Provider Orthopaedic Surgery | DX: M54.2 Cervicalgia (principal) | CPT/HCPCS: 99203; 99214 ==

== ENCOUNTER 2021-07-13 06:00 | Outpatient (RCR) | payer MEDICAID, SELFPAY | END 2021-08-11 23:59 | disposition home or self-care (01) | LOC: SPT 06:00 | PROVIDERS: PCP Family Medicine; Referring Provider Anesthesiology Pain Medicine; Visit Provider Anesthesiology Pain Medicine | DX: M54.2 Cervicalgia (principal) | CPT/HCPCS: 97110 ==

== ENCOUNTER → 2021-07-14 14:41 | Outpatient (BNVA) | payer MEDICAID, SELFPAY | PROVIDERS: PCP Family Medicine; Visit Provider Nurse Practitioner Psychiatric/Mental Health | DX: F33.1 Major depressive disorder, recurrent, moderate (principal); F41.1 Generalized anxiety disorder; Z63.4 Disappearance and death of family member; G47.09 Other insomnia | CPT/HCPCS: 99214 ==

== ENCOUNTER → 2021-07-21 09:40 | Outpatient (BNVA) | payer MEDICAID, SELFPAY | PROVIDERS: PCP Family Medicine; Visit Provider Anesthesiology Pain Medicine | DX: G89.29 Other chronic pain (principal); M50.90 Cervical disc disorder, unspecified, unspecified cervical region; M47.812 Spondylosis without myelopathy or radiculopathy, cervical region; Z87.891 Personal history of nicotine dependence | CPT/HCPCS: 99214 ==

== ENCOUNTER → 2021-07-25 07:37 | Outpatient (BNVA) | payer MEDICAID, SELFPAY | PROVIDERS: PCP Family Medicine; Visit Provider Counselor Mental Health | DX: F33.1 Major depressive disorder, recurrent, moderate (principal); F41.1 Generalized anxiety disorder | CPT/HCPCS: 90791 ==

== ENCOUNTER → 2021-08-11 13:12 | Outpatient (BNVA) | payer MEDICAID, SELFPAY | PROVIDERS: PCP Family Medicine; Visit Provider Anesthesiology Pain Medicine | DX: G89.29 Other chronic pain (principal); M50.90 Cervical disc disorder, unspecified, unspecified cervical region; M47.812 Spondylosis without myelopathy or radiculopathy, cervical region; M54.50 Low back pain, unspecified; Z87.891 Personal history of nicotine dependence | CPT/HCPCS: 99214 ==

== ENCOUNTER → 2021-09-06 09:26 | Outpatient (BNVA) | payer MEDICAID, SELFPAY | PROVIDERS: PCP Family Medicine; Visit Provider Anesthesiology Pain Medicine | DX: G89.29 Other chronic pain (principal); M54.12 Radiculopathy, cervical region; M50.90 Cervical disc disorder, unspecified, unspecified cervical region; M47.812 Spondylosis without myelopathy or radiculopathy, cervical region; Z87.891 Personal history of nicotine dependence | CPT/HCPCS: 72040; 99214 ==

== ENCOUNTER → 2021-09-15 11:10 | Outpatient (BNVA) | payer MEDICAID, SELFPAY | PROVIDERS: PCP Family Medicine; Visit Provider Family Medicine | DX: E78.5 Hyperlipidemia, unspecified (principal); B35.4 Tinea corporis | CPT/HCPCS: 80053; 80061 ==

== ENCOUNTER → 2021-10-05 09:42 | Outpatient (BNVA) | payer MEDICAID, SELFPAY | PROVIDERS: PCP Family Medicine; Visit Provider Anesthesiology Pain Medicine | DX: Z87.891 Personal history of nicotine dependence (principal); G89.29 Other chronic pain; M50.90 Cervical disc disorder, unspecified, unspecified cervical region; M47.812 Spondylosis without myelopathy or radiculopathy, cervical region | CPT/HCPCS: 99214 ==

== ENCOUNTER → 2021-11-01 10:21 | Outpatient (BNVA) | payer MEDICAID, SELFPAY | PROVIDERS: PCP Family Medicine; Visit Provider Physician Assistant | DX: M47.812 Spondylosis without myelopathy or radiculopathy, cervical region (principal); M50.30 Other cervical disc degeneration, unspecified cervical region | CPT/HCPCS: 99213 ==

== ENCOUNTER → 2021-11-08 07:53 | Outpatient (BNVA) | payer MEDICAID, SELFPAY | PROVIDERS: PCP Family Medicine; Visit Provider Physician Assistant | DX: M47.812 Spondylosis without myelopathy or radiculopathy, cervical region (principal); M50.30 Other cervical disc degeneration, unspecified cervical region; R20.2 Paresthesia of skin | CPT/HCPCS: 99213; 99214 ==

== ENCOUNTER → 2021-11-22 13:49 | Outpatient (BNVA) | payer MEDICAID, SELFPAY | PROVIDERS: PCP Family Medicine; Visit Provider Otolaryngology | DX: M26.609 Unspecified temporomandibular joint disorder, unspecified side (principal); H92.02 Otalgia, left ear; F17.210 Nicotine dependence, cigarettes, uncomplicated | CPT/HCPCS: 99212; 99213 ==

== ENCOUNTER → 2021-12-21 09:02 | Outpatient (BNVA) | payer MEDICAID, SELFPAY | PROVIDERS: PCP Family Medicine; Referring Provider Student in an Organized Health Care Education/Training Program; Visit Provider Specialist | DX: R20.2 Paresthesia of skin (principal); M79.601 Pain in right arm; M79.602 Pain in left arm | CPT/HCPCS: 95910; 95912 ==

== ENCOUNTER → 2022-01-03 08:28 | Outpatient (BNVA) | payer MEDICAID, SELFPAY | PROVIDERS: PCP Family Medicine; Visit Provider Physician Assistant | DX: M54.2 Cervicalgia (principal); G89.29 Other chronic pain | CPT/HCPCS: 99213 ==

== ENCOUNTER → 2022-01-23 09:40 | Outpatient (BNVA) | payer MEDICAID, SELFPAY | PROVIDERS: PCP Family Medicine; Referring Provider Physician Assistant; Visit Provider Anesthesiology Pain Medicine | DX: G89.29 Other chronic pain (principal); M50.90 Cervical disc disorder, unspecified, unspecified cervical region; M47.812 Spondylosis without myelopathy or radiculopathy, cervical region | CPT/HCPCS: 99214 ==

== ENCOUNTER → 2022-02-21 09:09 | Outpatient (BNVA) | payer OTHER, SELFPAY | PROVIDERS: PCP Family Medicine; Visit Provider Nurse Practitioner Psychiatric/Mental Health | DX: F41.1 Generalized anxiety disorder (principal) | CPT/HCPCS: 80061; 83036 ==

== ENCOUNTER 2022-03-03 07:43 | Emergency (ER) | payer MEDICAID, SELFPAY ==
[2022-03-03 07:47] VITALS: PULSE 105; RESP 18; TEMP 36.6; O2SAT 99
[2022-03-03 07:53] VITALS: BP 142/82
--- NOTE | 2022-03-03 08:02 | XR_ITS ---
WS: [id number] LEFT SHOULDER: 3 VIEW(S) TECHNIQUE: Internal and external rotation with Y view. HISTORY: left shoulder pain COMPARISON: None available. No fracture or dislocation or soft tissue abnormality. Mild narrowing of the AC joint. XR/XR shoulder LT min 2V* [id number] IMPRESSION: Mild AC joint arthritis.
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
[2022-03-03] MEDS: HYDROcodone-acetaminophen 7.5-325 mg Tablet 1 TAB PO (08:10)
[2022-03-03 09:02] VITALS: PULSE 88; RESP 16; O2SAT 96
--- NOTE | 2022-03-03 10:36 | DCPLANNER ---
Addendum entered by Jessika Kirkpatrick 03/09/22 13:29: Patient had a follow up appointment scheduled with ortho - patient did attend appointment. Original Note: manufacturing area manager had message to schedule a follow up appointment for patient with ortho. manufacturing area manager sent patients information to the front office staff at ortho. Patients information will be printed and reviewed. Clinic will call patient with appointment information.
== END 2022-03-03 09:03 | disposition home or self-care (01) ==
PROVIDERS: Emergency Provider Physician Assistant; PCP Family Medicine
DX: S49.92XA Unspecified injury of left shoulder and upper arm, initial encounter (principal); Z87.891 Personal history of nicotine dependence; Y04.8XXA Assault by other bodily force, initial encounter
CPT/HCPCS: 73030; 99283

== ENCOUNTER → 2022-03-06 10:09 | Outpatient (BNVA) | payer MEDICAID, SELFPAY ==
[2022-03-06 16:00] VITALS: BP 125/80; BMI 27.2
== END ==
PROVIDERS: PCP Family Medicine; Visit Provider Specialist
DX: S49.92XA Unspecified injury of left shoulder and upper arm, initial encounter (principal); X58.XXXA Exposure to other specified factors, initial encounter
CPT/HCPCS: 99204

== ENCOUNTER 2022-04-12 06:54 | Outpatient (CLI) | payer MEDICAID, SELFPAY ==
[2022-03-06 16:00] VITALS: BP 125/80; BMI 27.2
--- NOTE | 2022-04-12 07:16 | MR_ITS ---
WS: [id number] EXAMINATION: MR shoulder LT wo con* [id number] ORDER DATE: 04/12/2022 7:37 AM COMPARISON: None. HISTORY: SHOULDER INJURY CONTRAST: Radiograph March 03, 2022 TECHNIQUE: Axial T2 STAR, coronal proton density fat sat, sagittal T2 fat sat, sagittal proton densit y fat sat, axial proton density fat sat, coronal T2 fat sat, and coronal T1 performed. After contrast , axial T1 fat sat, coronal T1 fat sat, and sagittal T1 fat sat were performed. FINDINGS: Moderate degenerative arthritis at the AC joint. Mild edema. Large subacromial/subdeltoid effusion. M ild downsloping of the acromion. Mild narrowing of the subacromial space. Diffuse edema involving the posterior lateral humeral head suspicious for Hill-Sachs lesion or direct bony contusion. Glenoid is normal in appearance. No contusion within the glenoid. Fluid and edema involving the supraspinatus muscle belly. Distal supraspinatus appears intact. Infras pinatus appears intact. Normal teres minor. Normal subscapularis. Biceps tendon is absent from the bi cipital groove. Fluid and edema involving the subscapularis muscle belly. Distal tendon appears intac t. Biceps tendon remnant visualized distally. Intra-articular biceps tendon appears intact. MR/MR shoulder LT wo con* [id number] IMPRESSION: 1. Diffuse edema with mild compression deformity involving the posterior later al humeral head suspicious for traumatic contusion or Hill-Sachs deformity. No edema within the glenoid. Recommend correlation for trauma and history of dislo cation. 2. Large subacromial and subdeltoid effusion. 3. Biceps tendon is absent from the bicipital groove. Biceps remnant visualize d distally along the humerus. Intra-articular biceps tendon appears intact. 4. Edema with fluid involving the supraspinatus and subscapularis muscle jaxon es. Rotator cuff appears intact.
== END 2022-04-12 06:55 | disposition home or self-care (01) ==
LOC: RAD 06:55
PROVIDERS: PCP Family Medicine; Visit Provider Specialist
DX: M54.12 Radiculopathy, cervical region (principal); S42.292A Other displaced fracture of upper end of left humerus, initial encounter for closed fracture; X58.XXXA Exposure to other specified factors, initial encounter; G89.29 Other chronic pain
CPT/HCPCS: 62321; 73221

== ENCOUNTER 2022-05-01 14:46 | Outpatient (CLI) | payer MEDICAID, SELFPAY ==
[2022-03-06 16:00] VITALS: BP 125/80; BMI 27.2
== END 2022-05-01 14:47 | disposition home or self-care (01) ==
LOC: SPT 14:47
PROVIDERS: PCP Family Medicine; Visit Provider Specialist
DX: Z46.89 Encounter for fitting and adjustment of other specified devices (principal); M25.512 Pain in left shoulder; M19.012 Primary osteoarthritis, left shoulder
CPT/HCPCS: 97760; 99213; L3670

== ENCOUNTER → 2022-05-18 11:07 | Outpatient (BNVA) | payer MEDICAID, SELFPAY ==
[2022-03-06 16:00] VITALS: BP 125/80; BMI 27.2
== END ==
PROVIDERS: PCP Family Medicine; Visit Provider Anesthesiology Pain Medicine
DX: G89.29 Other chronic pain (principal); M50.90 Cervical disc disorder, unspecified, unspecified cervical region; M47.812 Spondylosis without myelopathy or radiculopathy, cervical region
CPT/HCPCS: 99214

== ENCOUNTER → 2022-05-30 10:00 | Outpatient (BNVA) | payer MEDICAID, SELFPAY ==
[2022-03-06 16:00] VITALS: BP 125/80; BMI 27.2
== END ==
PROVIDERS: PCP Family Medicine; Visit Provider Nurse Practitioner Psychiatric/Mental Health
DX: Z79.899 Other long term (current) drug therapy (principal); F33.1 Major depressive disorder, recurrent, moderate; F41.1 Generalized anxiety disorder; G47.09 Other insomnia; Z63.4 Disappearance and death of family member
CPT/HCPCS: 80053

== ENCOUNTER → 2022-07-03 09:01 | Outpatient (BNVA) | payer MEDICAID, SELFPAY ==
[2022-03-06 16:00] VITALS: BP 125/80; BMI 27.2
== END ==
PROVIDERS: PCP Family Medicine; Visit Provider Specialist
DX: M19.012 Primary osteoarthritis, left shoulder (principal)
CPT/HCPCS: 99213

== ENCOUNTER 2022-07-11 11:11 | Outpatient (CLI) | payer MEDICAID, SELFPAY ==
[2022-03-06 16:00] VITALS: BP 125/80; BMI 27.2
--- NOTE | 2022-07-11 11:23 | MM_ITS ---
WS: [id number] BILATERAL 3D TOMOSYNTHESIS DIGITAL SCREENING MAMMOGRAM WITH CAD CLINICAL INFORMATION: screening HISTORY: Screening mammogram. Pain and soreness COMPARISON: June 16, 2021 TECHNIQUE: Bilateral CC and MLO. FINDINGS: The breast are composed of extremely dense tissue, which can limit the detection of small underlying mass lesions. No suspicious focal mass, asymmetry, calcifications, or architectural distortion. No ev idence of malignancy. Incidental punctate calcification LEFT breast. MM/[id number] IMPRESSION: BI-RADS: 2-Benign FOLLOW UP: 1 Year Follow-up Recommend return to annual screening mammography.
== END 2022-07-11 11:12 | disposition home or self-care (01) ==
PROVIDERS: PCP Family Medicine; Visit Provider Family Medicine
DX: Z12.31 Encounter for screening mammogram for malignant neoplasm of breast (principal)
CPT/HCPCS: 77063; 77067

== ENCOUNTER → 2022-07-22 10:18 | Outpatient (BNVA) | payer MEDICAID, SELFPAY ==
[2022-03-06 16:00] VITALS: BP 125/80; BMI 27.2
== END ==
PROVIDERS: PCP Family Medicine; Visit Provider Registered Nurse Neonatal Intensive Care
DX: R30.0 Dysuria (principal); N39.0 Urinary tract infection, site not specified
CPT/HCPCS: 81000

== ENCOUNTER 2022-08-28 14:43 | Outpatient (CLI) | payer MEDICAID, SELFPAY ==
[2022-03-06 16:00] VITALS: BP 125/80; BMI 27.2
--- NOTE | 2022-08-28 14:51 | XR_ITS ---
WS: [id number] Exam: XR lumbar spine 2-3V* [id number] Date/Time of Exam: 08/28/2022 2:57 PM Reason For Exam: chronic low back Comparison 07/13/2009. No acute fracture or dislocation. 6 mm degenerative anterolisthesis of L3 on L4 noted. Partial sacral ization of L5. Mild spondylosis. Facet DJD from L3 to S1. Mild degenerative disc narrowing at L4-5 an d L5-S1. XR/XR lumbar spine 2-3V* [id number] IMPRESSION: 1. No fracture or malalignment. 2. 6 mm degenerative anterolisthesis of L3 on L4. Partial sacralization of L5. 3. Degenerative changes.
== END 2022-08-28 14:44 | disposition home or self-care (01) ==
LOC: RAD 14:45
PROVIDERS: PCP Family Medicine; Visit Provider Family Medicine
DX: M54.42 Lumbago with sciatica, left side (principal); G89.29 Other chronic pain; M47.817 Spondylosis without myelopathy or radiculopathy, lumbosacral region
CPT/HCPCS: 72100; 85025

== ENCOUNTER 2022-11-06 09:08 | Outpatient (CLI) | payer MEDICAID, SELFPAY ==
[2022-03-06 16:00] VITALS: BP 125/80; BMI 27.2
--- NOTE | 2022-11-06 09:30 | MR_ITS ---
WS: [id number] MRI LUMBAR SPINE NONCONTRAST TECHNIQUE: Sagittal T1, T2 and STIR imaging. Axial T1 and T2 imaging. CLINICAL INFORMATION: chronic low back pain COMPARISON: None. FINDINGS: Mild lumbar curve. No acute compression. Slight anterolisthesis L3 on L4. Disc bulging worse at L3-L4 and L4-L5. L1-L2: Mild facet arthropathy. Spinal canal and foramen are patent. L2-L3: Mild annular bulging. Mild facet arthropathy. Spinal canal and foramen are patent. L3-L4: Grade 1 anterolisthesis. Mild annular bulging. Narrowing of the RIGHT subarticular recess. Sma ll RIGHT foraminal protrusion with mild RIGHT foraminal narrowing. Slight impingement on the exiting RIGHT L3 nerve root. Mild LEFT foraminal narrowing. Moderate facet arthropathy. Small facet effusions . L4-L5: Shallow RIGHT paracentral protrusion impinges the traversing RIGHT L5 nerve root in the subart icular recess. Foramen are patent. Mild facet arthropathy. L5-S1: L5 is partially sacralized. Spinal canal and foramen are patent. Visualized pelvic bony structures: Normal. Paravertebral soft tissues: Normal. IMPRESSION: 1. Mild lumbar curve. No acute compression. No high-grade central canal stenosis. 2. L5 is partially sacralized. 3. Grade 1 anterolisthesis L3 on L4. Small RIGHT foraminal protrusion impinges the exiting RIGHT L3 nerve root. Recommend correlation RIGHT L3 nerve root symptoms. 4. Shallow RIGHT paracentral protrusion L4-5 impinges the traversing RIGHT L5 nerve root in the suba rticular recess. 5. Moderate facet arthropathy L3-L4 and L4-L5.
== END 2022-11-06 09:09 | disposition home or self-care (01) ==
LOC: RAD 09:09
PROVIDERS: PCP Family Medicine; Visit Provider Family Medicine
DX: G89.29 Other chronic pain (principal); M54.41 Lumbago with sciatica, right side; M54.42 Lumbago with sciatica, left side; M51.26 Other intervertebral disc displacement, lumbar region
CPT/HCPCS: 72148

== ENCOUNTER → 2022-12-21 10:15 | Outpatient (BNVA) | payer MEDICAID, SELFPAY ==
[2022-03-06 16:00] VITALS: BP 125/80; BMI 27.2
== END ==
PROVIDERS: PCP Family Medicine; Visit Provider Anesthesiology Pain Medicine
DX: M54.42 Lumbago with sciatica, left side (principal); M54.41 Lumbago with sciatica, right side; G89.29 Other chronic pain; M50.90 Cervical disc disorder, unspecified, unspecified cervical region; M47.812 Spondylosis without myelopathy or radiculopathy, cervical region; M47.816 Spondylosis without myelopathy or radiculopathy, lumbar region
CPT/HCPCS: 99214

== ENCOUNTER → 2022-12-26 09:26 | Outpatient (BNVA) | payer MEDICAID, SELFPAY ==
[2022-03-06 16:00] VITALS: BP 125/80; BMI 27.2
== END ==
PROVIDERS: PCP Family Medicine; Visit Provider Physician Assistant
DX: M47.812 Spondylosis without myelopathy or radiculopathy, cervical region (principal); G89.29 Other chronic pain
CPT/HCPCS: 72050; 99213

== ENCOUNTER → 2023-01-08 10:42 | Outpatient (BNVA) | payer MEDICAID, SELFPAY ==
[2022-03-06 16:00] VITALS: BP 125/80; BMI 27.2
== END ==
PROVIDERS: PCP Family Medicine; Visit Provider Specialist
DX: M19.012 Primary osteoarthritis, left shoulder (principal); M75.102 Unspecified rotator cuff tear or rupture of left shoulder, not specified as traumatic
CPT/HCPCS: 73030; 99213

== ENCOUNTER → 2023-01-11 09:41 | Outpatient (BNVA) | payer MEDICAID, SELFPAY ==
[2022-03-06 16:00] VITALS: BP 125/80; BMI 27.2
== END ==
PROVIDERS: PCP Family Medicine; Visit Provider Anesthesiology Pain Medicine
DX: M79.18 Myalgia, other site (principal); M54.42 Lumbago with sciatica, left side; M54.41 Lumbago with sciatica, right side; G89.29 Other chronic pain; M50.90 Cervical disc disorder, unspecified, unspecified cervical region; M47.812 Spondylosis without myelopathy or radiculopathy, cervical region; M47.816 Spondylosis without myelopathy or radiculopathy, lumbar region
CPT/HCPCS: 20553; 99214; J1030; J3490

== ENCOUNTER → 2023-02-14 09:37 | Outpatient (BNVA) | payer MEDICAID, SELFPAY ==
[2022-03-06 16:00] VITALS: BP 125/80; BMI 27.2
== END ==
PROVIDERS: PCP Family Medicine; Visit Provider Anesthesiology Pain Medicine
DX: M54.42 Lumbago with sciatica, left side (principal); M54.41 Lumbago with sciatica, right side; G89.29 Other chronic pain; M50.90 Cervical disc disorder, unspecified, unspecified cervical region; M47.812 Spondylosis without myelopathy or radiculopathy, cervical region; M47.816 Spondylosis without myelopathy or radiculopathy, lumbar region
CPT/HCPCS: 99214

== ENCOUNTER 2023-02-15 12:34 | Outpatient (CLI) | payer MEDICAID, SELFPAY ==
[2022-03-06 16:00] VITALS: BP 125/80; BMI 27.2
--- NOTE | 2023-02-15 12:40 | MR_ITS ---
WS: [id number] MRI LEFT SHOULDER ARTHROGRAM TECHNIQUE: Sagittal T2, coronal T1, T2 and proton density imaging. Axial gradient PDE imaging. CLINICAL INFORMATION: SHOULDER PAIN COMPARISON: MRI 04/12/2022 FINDINGS: Moderate degenerative arthritis of the AC joint with mild edema and fluid. Mild downsloping acromion. Slight impingement distal supraspinatus which appears intact. Slight tendinopathy distal supraspinat us. Trace subacromial fluid. Normal infraspinatus. Normal teres minor. Previously described joint eff usion has resolved. Moderate to advanced degenerative narrowing of the glenohumeral articulation. Subscapularis tendon a ppears intact. Previously described concave Hill-Sachs type deformity posterolateral humeral head is unchanged. Normal bone marrow signal in the glenoid. Imaging after intra-articular ministration of gadolinium de monstrates chronic thinning of the distal supraspinatus which appears intact. Rotator cuff appears in tact. Tiny diminutive biceps tendon in the proximal bicipital groove. Intra-articular biceps tendon i s essentially absent with a tiny remnant likely due to prior tear. Glenohumeral ligaments appear intact. Degenerative fraying of the glenoid labrum but no acute appeari ng labral tears. IMPRESSION: 1. Moderate degenerative arthritis AC joint with fluid and edema. Mild downsloping acromion. 2. Chronic thinning of the distal supraspinatus with mild tendinopathy. Rotator cuff is intact. 3. Previously described joint effusion has resolved. 4. Intra-articular biceps tendon is essentially absent likely due to prior tear. 5. Proximal and distal biceps tendon is visualized in the bicipital groove and is diminutive. 6. Concave Hill-Sachs type deformity posterior lateral humeral head. No visualized glenoid fractures . 7. No other acute findings.
--- NOTE | 2023-02-15 13:00 | IR_ITS ---
WS: [id number] SHOULDER ARTHROGRAM LEFT Fluoroscopic guided LEFT shoulder arthrogram CLINICAL INFORMATION: SHOULDER PAIN COMPARISON: None. PROCEDURE: The procedure including risks, benefits and complications were discussed with the patient, who agreed to proceed. Using sterile technique, the patient was prepped and draped in the usual ster ile fashion. After 1% lidocaine injection using fluoroscopic guidance, a 22-gauge spinal needle was a dvanced into the glenohumeral joint. Approximately 13 ml of a solution containing 15 ml normal saline , 5 ml Omnipaque 240 and 0.1 ml gadolinium was administered. No immediate complications. FLUOROSCOPY TIME: 1min [id number] # of spot films: 3 IMPRESSION: Uncomplicated fluoroscopic-guided LEFT shoulder arthrogram. MRI to follow.
== END 2023-02-15 12:35 | disposition home or self-care (01) ==
LOC: RAD 12:35
PROVIDERS: PCP Family Medicine; Visit Provider Specialist
DX: M19.012 Primary osteoarthritis, left shoulder (principal)
CPT/HCPCS: 23350; 73223; 77002; A9577; Q9966

== ENCOUNTER → 2023-02-26 08:27 | Outpatient (BNVA) | payer MEDICAID, SELFPAY ==
[2022-03-06 16:00] VITALS: BP 125/80; BMI 27.2
== END ==
PROVIDERS: PCP Family Medicine; Visit Provider Specialist
DX: M75.102 Unspecified rotator cuff tear or rupture of left shoulder, not specified as traumatic (principal); M19.012 Primary osteoarthritis, left shoulder
CPT/HCPCS: 20610; 99214

== ENCOUNTER 2023-03-07 21:11 | Emergency (ER) | payer MEDICAID, SELFPAY ==
[2022-03-06 16:00] VITALS: BP 125/80; BMI 27.2
[2023-03-07 21:12] VITALS: BP 143/83; PULSE 89; RESP 14; TEMP 36.6; O2SAT 96; BMI 29.9
--- NOTE | 2023-03-07 21:13 | XRR_ITS ---
PROCEDURE INFORMATION: Exam: XR Left Ankle Exam date and time: 03/07/2023 9:31 PM Age: 57 years old Clinical indication: Injury or trauma; Fall; Blunt trauma; Left; Injury details: Patient slipped of porch; Patient HX: Lateral aspect ankle pain TECHNIQUE: Imaging protocol: Radiologic exam of the left ankle. Views: 3 or more views. COMPARISON: CR XR knee LT 3V* [id number] 04/10/2016 11:03 AM FINDINGS: Bones/joints: No fracture. Soft tissues: Soft tissue swelling along the lateral aspect of the ankle. XR/XR ankle LT min 3V* [id number] IMPRESSION: 1. Soft tissue swelling along the lateral aspect of the ankle. 2. No fracture.
--- NOTE | 2023-03-07 21:18 | ED_ITS ---
HPI - Extremity Problem General: Chief complaint: Extremity Injury, Lower Stated complaint: fall- left ankle injury Time Seen by Provider: 03/07/23 21:18 History of Present Illness: 57-year-old female comes in for evaluati on of left ankle injury. Patient reports stepping off the porch and landing awkwardly on her right ankle. Patient reports pain and discomfort to the lateral part of ankle. Patient has no obvious deformity. Patient has increased swelling to the lateral aspect of the ankle. Review of Systems General: Reports: 10 or more systems reviewed and unremarkable except in HPI and below Musc: Reports: joint pain (Left ankle) and joint swelling (Left ankle) PFSH ED PFSH: Medical History Major depressive disorder, recurrent episode with anxious distress Chronic neck pain TMJ (temporomandibular joint syndrome) Bereavement Sudden loss of 29 yr old daughter 12/31/20 Insomnia Psychiatric care Generalized anxiety disorder Lung nodule Left lower lobe - 7mm - repeat in 07/01 Constipation GERD (gastroesophageal reflux disease) Surgical History History of dilation and curettage (~07/20/20) 07/20/2020: Hysteroscopy, dilation and curettage with myosure at [place], [place] by Dr. Finnegan. H/O esophagogastroduodenoscopy (11/27/19) mild gastritis. H/O colonoscopy 03/14/2016 Repeat in 10 years Family History Mother Cancer Lung cancer Other Major depressive disorder, recurrent episode, moderate with anxious distress Denies family history of Diabetes Ovarian cyst CAD (coronary artery disease) Clotting disorder Hyperlipidemia Chronic kidney disease (CKD) Anesthesia complication Bleeding disorder Hypertension Thyroid disease Stroke Social History Quit status (tobacco/nicotine): has quit using Year quit tobacco: 2021 Second hand smoke exposure: Yes Alcohol intake: former Year of sobriety/quit date alcohol: 2020 Substance/Drug Use: never Adopted: No Caregiver/support person: No Lives independently: Yes Household members: children Housing: Apartment Marital status: / Marital status details: Has been a for 5 years Number of children: 3 Number of grandchildren: 13 Highest education level completed: High School Graduate service: No Current occupational status: disabled Current occupation: trying to get disability Current occupational exposures/hazards: No Pets and animals: Yes Pets & animals: cat(s) Leisure activites: games and other Leisure activities details: Watch movies Sexually active: Yes Do you think of yourself as: Straight/Heterosexual Current gender identity: Female Michelle/Pentecostal: None Special michelle needs: No Female Reproductive History: Para: 3 Spontaneous abortions: No Physical Exam Const: COMMON NORMALS: alert HENMT: COMMON NORMALS: normocephalic HEAD & SCALP: normocephalic Neck/C-Spine: COMMON NORMALS: full ROM Resp: COMMON NORMALS: normal respiratory effort Cardio: COMMON NORMALS: regular rate RATE: regular rate Back/Pelvis: COMMON NORMALS: thoracic and lumbar spine normal to inspection Extremity: LEFT LOWER EXTREMITY: Yes ankle joint (Left ankle with lateral swelling and tenderness. Distal pulses intact.) Neuro: SENSORIUM/ORIENTATION: Yes alert Skin: COMMON NORMALS: turgor normal GENERAL SKIN EXAM: turgor normal Course Vital Signs: Vital signs: Vital Signs Temperature 97.8 F 03/07/23 21:12 Pulse Rate 89 03/07/23 21:12 Respiratory Rate 14 03/07/23 21:12 Blood Pressure 143/83 03/07/23 21:12 Pulse Oximetry 96 03/07/23 21:12 Oxygen Delivery Me thod Room Air 03/07/23 21:12 MDM - Extremity (Nontraumatic) Medical Decision Making 57-year-old female comes in today for injury to the left ankle. On exam patient has tenderness and swelling to the lateral malleolus of the left ankle. Distal pulses are intact. Prompt capillary refill is intact. Differential diagnosis includes but not limited to fracture, sprain, dislocation. X-ray noted no fracture. Reviewed exam with patient with recommendations for treatment and follow-up. Patient was put in a Jose wrap and crutches. Patient was told use acetaminophen and ibuprofen to control pain. Patient was written for a short prescription of hydrocodone No. 7 tablets to use for uncontrolled pain. XR interpretation done by ED provider, pending radiology final review Discharge Plan Discharge Patient Disposition: Home Clinical Impression: Ankle sprain Qualifiers: Encounter type: initial encounter Involved ligament of ankle: unspecified ligament Laterality: left Qualified Code(s): S93.402A - Sprain of unspecified ligament of left ankle, initial encounter Condition: Stable Prescriptions: New hydrocodone-acetaminophen 5-325 mg tablet 1 tab PO Q6H PRN (Reason: pain) 3 Days Qty: 7 0RF No Action mirtazapine 15 mg tablet 15 mg PO BEDTIME Qty: 90 2RF Rx Instructions: Take one tablet at bedtime meloxicam 15 mg tablet 15 mg PO DAILY Qty: 30 0RF bupivacaine (PF) 0.25 % (2.5 mg/mL) solution 3 ml intra-articular ONCE Qty: 1 0RF tizanidine 4 mg tablet 4 mg PO BID PRN (Reason: muscle spasticity) Qty: 60 0RF atorvastatin 40 mg tablet 40 mg PO DAILY 90 Days Qty: 90 1RF gabapentin [Neurontin] 100 mg capsule 100 mg PO TID Qty: 90 1RF Linzess 72 mcg capsule 72 mcg PO QAM Qty: 30 5RF lactulose 10 gram/15 mL solution 15 ml PO DAILY PRN (Reason: constipation) Qty: 473 2RF celecoxib [Celebrex] 200 mg capsule 200 mg PO BID 30 Days Qty: 90 3RF Rx Instructions: Take 1 capsule twice daily pantoprazole 40 mg tablet,delayed release (DR/EC) 40 mg PO BID Qty: 120 0RF Discharge Orders: Discharge ED (Routine); Ordered 03/07/23 Ordered By: Hank Hobson Referrals: Geri Mukherjee DO [Primary Care Provider] - Discharge Diet: Usual diet Discharge Activity: Increase activity as tolerated Patient Instructions: Ankle Sprain (ED), Opioid Safety Activity Restrictions/Additional Instructions: Activity as tolerated. Use crutches until he can walk comfortably on the ankle. Use acetaminophen and ibuprofen to control pain. Use hydrocodone for severe pain. Follow-up with primary care for further instructions. Return to ED for new concerns. Coding Level of Care Code ED Monotype Keyboard Operator for James Nathan
[2023-03-07] MEDS: HYDROcodone-acetaminophen 5-325 mg Tablet 1 TAB PO (21:56)
[2023-03-07 22:06] VITALS: BP 140/82; PULSE 96; RESP 17; O2SAT 98
== END 2023-03-07 22:07 | disposition home or self-care (01) ==
PROVIDERS: Emergency Provider Nurse Practitioner Family; PCP Family Medicine
DX: S93.402A Sprain of unspecified ligament of left ankle, initial encounter (principal); Z87.891 Personal history of nicotine dependence; X50.1XXA Overexertion from prolonged static or awkward postures, initial encounter
CPT/HCPCS: 73610; 99283

== ENCOUNTER 2023-03-28 16:32 | Emergency (ER) | payer MEDICAID, SELFPAY ==
[2022-03-06 16:00] VITALS: BP 125/80; BMI 27.2
[2023-03-28] VITALS (42 sets, daily range): BP systolic 106–142; BP diastolic 71–93; PULSE 74–100; RESP 16; TEMP 37.1; O2SAT 93–100
--- NOTE | 2023-03-28 16:42 | ED_ITS ---
HPI - Abdominal Pain 2 General: Chief Complaint: Abdominal Pain Stated Complaint: abd pain, lower back pain Time Seen by Provider: 03/28/23 16:39 History of Present Illness: 57-year-old female comes in today for co mplaints of lower abdominal pain radiating to her back. Patient has a been having pain for about 1 week. Patient has a history of a hysterectomy. Patient has history of IBS constipation variant. Patient uses lactulose and Linzess. Patient reports some chills and nausea and feeling of bloating. Patient reports she has been having increased urinary frequency and hesitancy x 1 week. Patient appears nontoxic. Patient appears in mild pain. Review of Systems 2 General: Reports: 10 or more systems reviewed and unremarkable except in HPI and below GI: Reports: abdominal pain : Reports: difficulty voiding Musc: Reports: back pain PFSH ED 2 PFSH: Medical History Major depressive disorder, recurrent episode with anxious distress Chronic neck pain TMJ (temporomandibular joint syndrome) Bereavement Sudden loss of 29 yr old daughter 12/31/20 Insomnia Psychiatric care Generalized anxiety disorder Lung nodule Left lower lobe - 7mm - repeat in 07/01 Constipation GERD (gastroesophageal reflux disease) Surgical History History of dilation and curettage (~07/20/20) 07/20/2020: Hysteroscopy, dilation and curettage with myosure at [place], [place] by Dr. Finnegan. H/O esophagogastroduodenoscopy (11/27/19) mild gastritis. H/O colonoscopy 03/14/2016 Repeat in 10 years Family History Mother Cancer Lung cancer Other Major depressive disorder, recurrent episode, moderate with anxious distress Denies family history of Diabetes Ovarian cyst CAD (coronary artery disease) Clotting disorder Hyperlipidemia Chronic kidney disease (CKD) Anesthesia complication Bleeding disorder Hypertension Thyroid disease Stroke Social History Quit status (tobacco/nicotine): has quit using Year quit tobacco: 2021 Second hand smoke exposure: Yes Alcohol intake: former Year of sobriety/quit date alcohol: 2020 Substance/Drug Use: never Adopted: No Caregiver/support person: No Lives independently: Yes Household members: children Housing: Apartment Marital status: / Marital status details: Has been a for 5 years Number of children: 3 Number of grandchildren: 13 Highest education level completed: High School Graduate service: No Current occupational status: disabled Current occupation: trying to get disability Current occupational exposures/hazards: No Pets and animals: Yes Pets & animals: cat(s) Leisure activites: games and other Leisure activities details: Watch movies Sexually active: Yes Do you think of yourself as: Straight/Heterosexual Current gender identity: Female Michelle/Mormonism: None Special michelle needs: No Female Reproductive History: Para: 3 Spontaneous abortions: No Physical Exam 2 Const: COMMON NORMALS: alert HENMT: COMMON NORMALS: normocephalic HEAD & SCALP: normocephalic Neck/C-Spine: COMMON NORMALS: full ROM Resp: COMMON NORMALS: normal respiratory effort Cardio: COMMON NORMALS: regular rate RATE: regular rate GI: COMMON NORMALS: Soft to palpation PALPATION: Yes Soft to palpation : COMMON NORMALS: Yes no CVA tenderness BLADDER/KIDNEY EXAM: Yes no CVA tenderness Back/Pelvis: COMMON NORMALS: no CVA tenderness Extremity: COMMON NORMALS: full ROM Neuro: SENSORIUM/ORIENTATION: Yes alert Skin: COMMON NORMALS: turgor normal GENERAL SKIN EXAM: turgor normal Course 2 Vital Signs: Vital signs: Vital Signs Temperature 98.7 F 03/28/23 16:33 Pulse Rate 83 03/28/23 18:16 Respiratory Rate 16 03/28/23 18:16 Blood Pressure 127/85 03/28/23 20:10 Pulse Oximetry 96 03/28/23 20:10 Oxygen Delivery Me thod Room Air 03/28/23 18:16 MDM - Abdominal Pain Medical Decision Making 57-year-old female comes in today for complaints of lower abdominal pain. Abdomen soft with some suprapubic tenderness. No CVA tenderness. Lungs clear to auscultation. Vital signs are normal. Differential diagnosis includes not limited to renal calculi, urinary tract infection, IBS, anxiety, dehydration. CBC, CMP, and urinalysis were unremarkable. Patient continued to have some difficult abdominal pain after treatment. CT of the abdomen pelvis was performed and noted diverticulitis of the sigmoid colon. Patient was started on Cipro and Flagyl twice a day for 5 days. Patient was covered with some hydrocodone for severe pain. Patient reports understanding of care plan need for follow-up or return to the ER. Lab Data 03/28/23 16:51 03/28/23 16:51 Labs/Radiology: Radiology Impressions Abdomen/Pelvis CT 03/28/23 17:56 IMPRESSION: 1. Diverticulitis of the sigmoid colon. 2. No abscess. Laboratory Results WBC 10.64 10^3/uL (3.29-11.43) 03/28/23 16:51 RBC 4.29 10^6/uL (3.85-5.65) 03/28/23 16:51 Hgb 13.40 g/dL (11.27-16.99) 03/28/23 16:51 Hct 41.8 % (36-47) 03/28/23 16:51 MCV 97.4 fl (85-98) 03/28/23 16:51 MCH 31.2 pg (27-33) 03/28/23 16:51 MCHC 32.1 g/dL (30-55) 03/28/23 16:51 RDW 12.5 % (12.1-15.1) 03/28/23 16:51 Plt Count 321 10^3/cmm (157-399) 03/28/23 16:51 MPV 11.0 fL (7.4-10.4) H 03/28/23 16:51 Neut % (Auto) 67.4 % 03/28/23 16:51 Lymph % (Auto) 22.4 % 03/28/23 16:51 [place] % (Auto) 8.5 % 03/28/23 16:51 Eos % (Auto) 0.8 % 03/28/23 16:51 Baso % (Auto) 0.6 % 03/28/23 16:51 Neut # (Auto) 7.18 10^3/uL (1.8-7.7) 03/28/23 16:51 Lymph # (Auto) 2.4 10^3/uL (0.8-4.8) 03/28/23 16:51 [place] # (Auto) 0.9 10^3/uL (0.2-0.9) 03/28/23 16:51 Eos # (Auto) 0.1 10^3/uL (0.0-0.8) 03/28/23 16:51 Baso # (Auto) 0.1 10^3/uL (0.0-0.1) 03/28/23 16:51 Nucleated RBC % (auto) 0 % 03/28/23 16:51 Nucleated RBCs # 0.0 /100WBC 03/28/23 16:51 Sodium 141 mmol/L (136-145) 03/28/23 16:51 Potassium 3.7 mmol/L (3.5-5.1) 03/28/23 16:51 Chloride 103 mmol/L (98-107) 03/28/23 16:51 Carbon Dioxide 28 mmol/L (22-29) 03/28/23 16:51 Anion Gap 13.7 (5-19) 03/28/23 16:51 BUN 14 mg/dL (6-20) 03/28/23 16:51 Creatinine 0.7 mg/dL (0.5-0.9) 03/28/23 16:51 GFR Calculation 86.9 mL/min (90-130) L 03/28/23 16:51 Glucose 93 mg/dL (65-115) 03/28/23 16:51 Calculated Osmolality 292 mOsm/kg (285-295) 03/28/23 16:51 Calcium 9.1 mg/dL (8.5-10.5) 03/28/23 16:51 Total Bilirubin 0.2 mg/dL (0.15-1.2) 03/28/23 16:51 AST 19 U/L (0-32) 03/28/23 16:51 ALT 18 U/L (0-33) 03/28/23 16:51 Alkaline Phosphatase 104 U/L (35-105) 03/28/23 16:51 Total Protein 6.9 g/dL (6.6-8.7) 03/28/23 16:51 Albumin 4.2 g/dL (3.5-5.2) 03/28/23 16:51 Globulin 2.7 g/dL (1.3-4.6) 03/28/23 16:51 Lipase 29 U/L (13-60) 03/28/23 16:51 Urine Color Yellow (Yellow) 03/28/23 16:51 Urine Appearance Clear (CLEAR) 03/28/23 16:51 Urine pH 6 (5-7) 03/28/23 16:51 Ur Specific [place] 1.020 (1.005-1.030) 03/28/23 16:51 Urine Protein Neg (Negative) 03/28/23 16:51 Urine Glucose (UA) Norm (Normal) 03/28/23 16:51 Urine Ketones Negative (Negative) 03/28/23 16:51 Urine Blood Neg (Negative) 03/28/23 16:51 Urine Nitrate Negative (Negative) 03/28/23 16:51 Urine Bilirubin Neg (Negative) 03/28/23 16:51 Urine Urobilinogen 4 mg/dL (Negative) H 03/28/23 16:51 Ur Leukocyte Esterase Negative (Negative) 03/28/23 16:51 Urine RBC Cancelled 03/28/23 16:51 Urine WBC Cancelled 03/28/23 16:51 Ur Squamous Epith Cells Cancelled 03/28/23 16:51 Ur Transition Epith Cell Cancelled 03/28/23 16:51 Ur Renal Epithelial Cell Cancelled 03/28/23 16:51 Calcium Oxalate Crystal Cancelled 03/28/23 16:51 Uric Acid Crystals Cancelled 03/28/23 16:51 Triple Phos Crystals Cancelled 03/28/23 16:51 Other Crystals Cancelled 03/28/23 16:51 Amorphous Sediment Cancelled 03/28/23 16:51 Urine Bacteria Cancelled 03/28/23 16:51 Hyaline Casts Cancelled 03/28/23 16:51 Fine Granular Casts Cancelled 03/28/23 16:51 Coarse Granular Casts Cancelled 03/28/23 16:51 RBC Casts Cancelled 03/28/23 16:51 Other Casts Cancelled 03/28/23 16:51 Urine Mucus Cancelled 03/28/23 16:51 Urine Trichomonas Cancelled 03/28/23 16:51 Urine Yeast Cancelled 03/28/23 16:51 Urine Sperm Cancelled 03/28/23 16:51 Ur Oval Fat Bodies Cancelled 03/28/23 16:51 All radiology interpretation(s) finalized by discharge Discharge Plan Discharge Patient Disposition: Home Clinical Impression: Diverticulitis Condition: Stable Prescriptions: New ciprofloxacin HCl 500 mg tablet 500 mg PO BID Qty: 10 0RF metronidazole 500 mg tablet 500 mg PO BID Qty: 10 0RF hydrocodone-acetaminophen 5-325 mg tablet 1 tab PO Q6H PRN (Reason: pain (scale score 7-10)) Qty: 7 0RF No Action mirtazapine 15 mg tablet 15 mg PO BEDTIME Qty: 90 2RF Rx Instructions: Take one tablet at bedtime meloxicam 15 mg tablet 15 mg PO DAILY Qty: 30 0RF bupivacaine (PF) 0.25 % (2.5 mg/mL) solution 3 ml intra-articular ONCE Qty: 1 0RF tizanidine 4 mg tablet 4 mg PO BID PRN (Reason: muscle spasticity) Qty: 60 0RF atorvastatin 40 mg tablet 40 mg PO DAILY 90 Days Qty: 90 1RF gabapentin [Neurontin] 100 mg capsule 100 mg PO TID Qty: 90 1RF Linzess 72 mcg capsule 72 mcg PO QAM Qty: 30 5RF lactulose 10 gram/15 mL solution 15 ml PO DAILY PRN (Reason: constipation) Qty: 473 2RF celecoxib [Celebrex] 200 mg capsule 200 mg PO BID 30 Days Qty: 90 3RF Rx Instructions: Take 1 capsule twice daily pantoprazole 40 mg tablet,delayed release (DR/EC) 40 mg PO BID Qty: 120 0RF Discharge Orders: Discharge ED (Routine); Ordered 03/28/23 Ordered By: Hank Hobson Referrals: Geri Mukherjee DO [Primary Care Provider] - Discharge Diet: Usual diet Discharge Activity: Increase activity as tolerated Patient Instructions: Diverticulitis (ED) Activity Restrictions/Additional Instructions: Home and rest. Drink plenty of fluids. Activity as tolerated. Follow-up with primary care for further instructions. Return to ED for worsening symptoms such as uncontrolled fever, inability to hold fluids down, blood in vomit or stool. Coding Level of Care Code ED Plan Coordinator for James Nathan
[2023-03-28] MEDS: acetaminophen 500 mg Tablet 1000 MG PO (17:00)
[2023-03-28 17:02] LABS: Charge for UA Resulting for Rev
[2023-03-28 17:03] LABS: Basophils # 0.1 10^3/uL (0.0-0.1); Basophils % 0.6 %; Eosinophils # 0.1 10^3/uL (0.0-0.8); Eosinophils % 0.8 %; Hematocrit 41.8 % (36-47); Lymphocytes # 2.4 10^3/uL (0.8-4.8); Lymphocytes % 22.4 %; Mean Corpuscular HGB Conc 32.1 g/dL (30-55); Mean Corpuscular Hemoglobin 31.2 pg (27-33); Mean Corpuscular Volume 97.4 fl (85-98); Monocytes # 0.9 10^3/uL (0.2-0.9); Monocytes % 8.5 %; Neutrophils # 7.18 10^3/uL (1.8-7.7); Neutrophils % 67.4 %; Nucleated Red Blood Cells % 0 %; Platelet Count 321 10^3/cmm (157-399); Red Blood Count 4.29 10^6/uL (3.85-5.65); Red Cell Distribution Width 12.5 % (12.1-15.1); White Blood Count 10.64 10^3/uL (3.29-11.43)
[2023-03-28 17:17] LABS: Alanine Aminotransferase 18 U/L (0-33); Albumin Level 4.2 g/dL (3.5-5.2); Alkaline Phosphatase 104 U/L (35-105); Anion Gap 13.7 (5-19); Aspartate Amino Transferase 19 U/L (0-32); Blood Urea Nitrogen 14 mg/dL (6-20); Calcium 9.1 mg/dL (8.5-10.5); Carbon Dioxide 28 mmol/L (22-29); Chloride 103 mmol/L (98-107); Globulin 2.7 g/dL (1.3-4.6); Glomerular Filtration Rate 86.9 mL/min (90-130); Glucose 93 mg/dL (65-115); Lipase 29 U/L (13-60); Osmolality Calculated 292 mOsm/kg (285-295); Potassium 3.7 mmol/L (3.5-5.1); Sodium 141 mmol/L (136-145); Total Bilirubin 0.2 mg/dL (0.15-1.2); Total Protein 6.9 g/dL (6.6-8.7)
[2023-03-28 17:20] LABS: Bilirubin Urine Neg (Negative); Blood Urine Neg (Negative); Glucose Urine UA Norm (Normal); Ketones Urine Negative (Negative); Leukocyte Esterase Urine Negative (Negative); Nitrate Urine Negative (Negative); Protein Urine Neg (Negative); Urine Appearance Clear (CLEAR); Urine Color Yellow (Yellow); Urobilinogen Urine 4 mg/dL (Negative); pH Urine 6 (5-7)
--- NOTE | 2023-03-28 17:56 | CTR_ITS ---
PROCEDURE INFORMATION: Exam: CT Abdomen And Pelvis With Contrast Exam date and time: 03/28/2023 7:48 PM Age: 57 years old Clinical indication: Abdominal pain; Localized; Lower; Additional info: Lower abd pain, HX of diveriticulitis TECHNIQUE: Imaging protocol: Computed tomography of the abdomen and pelvis with contrast. Radiation optimization: All CT scans at this facility use at least one of these dose optimization techniques: automated exposure control; mA and/or kV adjustment per patient size (includes targeted exams where dose is matched to clinical indication); or iterative reconstruction. Contrast material: OMNI 350; Contrast volume: 100 ml; Contrast route: INTRAVENOUS (IV); COMPARISON: CT abdomen pelvis wo con [id number] 07/19/2020 11:59 AM RADIATION DOSE METRICS: Total DLP (mGy-cm): 490 FINDINGS: Lungs: Calcified granuloma in the left lung base. Liver: Normal. No mass. Gallbladder and bile ducts: Normal. No calcified stones. No ductal dilation. Pancreas: Normal. No ductal dilation. Spleen: Normal. No splenomegaly. Adrenal glands: Normal. No mass. Kidneys and ureters: Normal. No hydronephrosis. Stomach and bowel: Diverticulitis of the sigmoid colon. Appendix: No evidence of appendicitis. Intraperitoneal space: Unremarkable. No free air. No significant fluid collection. Vasculature: Unremarkable. No abdominal aortic aneurysm. Lymph nodes: Unremarkable. No enlarged lymph nodes. Urinary bladder: Unremarkable as visualized. Reproductive: Unremarkable as visualized. Bones/joints: Unremarkable. No acute fracture. Soft tissues: Unremarkable. Other findings: No abscess. CT/CT abdomen pelvis w con* [id number] IMPRESSION: 1. Diverticulitis of the sigmoid colon. 2. No abscess.
[2023-03-28 18:43] LABS: Add Urine Microscopic? NO
[2023-03-28] MEDS: iohexol 350 mg/mL 500 mL Btl (per mL) IV (19:58)
[2023-03-28] MEDS: ciprofloxacin 500 mg Tablet PO (21:02)
[2023-03-28] MEDS: metroNIDAZOLE 500 MG Tablet PO (21:02)
[2023-03-28] MEDS: HYDROcodone-acetaminophen 5-325 mg Tablet 1 TAB PO (21:14)
== END 2023-03-28 21:31 | disposition home or self-care (01) ==
PROVIDERS: Emergency Provider Nurse Practitioner Family; PCP Family Medicine
DX: K57.92 Diverticulitis of intestine, part unspecified, without perforation or abscess without bleeding (principal); Z87.891 Personal history of nicotine dependence
CPT/HCPCS: 74177; 80053; 81003; 83690; 85025; 99285; Q9967

== ENCOUNTER 2023-03-31 07:16 | Emergency (ER) | payer MEDICAID, SELFPAY ==
[2022-03-06 16:00] VITALS: BP 125/80; BMI 27.2
[2023-03-31 07:24] VITALS: BP 150/101; PULSE 91; RESP 16; TEMP 36.4; O2SAT 97
--- NOTE | 2023-03-31 07:28 | W.ED.ABDPA2 ---
HPI - Abdominal Pain General: Chief Complaint: Abdominal Pain Stated Complaint: N/V, abd pain Time Seen by Provider: 03/31/23 07:24 History of Present Illness: 57-year-old female with a history of chronic pain, hypertension, hyperlipidemia, GERD and recently diagnosed diverticulitis who presents to the emergency room with continued abdominal pain and now with nausea and vomiting. She says hydrocodone has not worked for her and it never really does. She says she does not tolerate pain pills very well. She has no nausea medications. She had a fever a few days back but has not had one since. Pain is in her lower abdomen. She says it hurts when she defecates. She has been having hard stools. No dysuria. No cough. No shortness of breath. No altered mental status. No focal motor deficits.. Review of Systems Narrative: Constitutional symptoms: Negative except as documented in HPI. Skin symptoms: Negative except as documented in HPI. Eye symptoms: Negative except as documented in HPI. ENMT symptoms: Negative except as documented in HPI. Respiratory symptoms: Negative except as documented in HPI. Cardiovascular symptoms: Negative except as documented in HPI. Gastrointestinal symptoms: Negative except as documented in HPI. Genitourinary symptoms: Negative except as documented in HPI. Musculoskeletal symptoms: Negative except as documented in HPI. Neurologic symptoms: Negative except as documented in HPI. Psychiatric symptoms: Negative except as documented in HPI. Endocrine symptoms: Negative except as documented in HPI. PFS ED PFSH: Medical History Major depressive disorder, recurrent episode with anxious distress Chronic neck pain TMJ (temporomandibular joint syndrome) Bereavement Sudden loss of 29 yr old daughter 12/31/20 Insomnia Psychiatric care Generalized anxiety disorder Lung nodule Left lower lobe - 7mm - repeat in 07/01 Constipation GERD (gastroesophageal reflux disease) Surgical History History of dilation and curettage (~07/20/20) 07/20/2020: Hysteroscopy, dilation and curettage with myosure at [place], [place] by Dr. Finnegan. H/O esophagogastroduodenoscopy (11/27/19) mild gastritis. H/O colonoscopy 03/14/2016 Repeat in 10 years Family History Mother Cancer Lung cancer Other Major depressive disorder, recurrent episode, moderate with anxious distress Denies family history of Diabetes Ovarian cyst CAD (coronary artery disease) Clotting disorder Hyperlipidemia Chronic kidney disease (CKD) Anesthesia complication Bleeding disorder Hypertension Thyroid disease Stroke Social History Quit status (tobacco/nicotine): has quit using Year quit tobacco: 2021 Second hand smoke exposure: Yes Alcohol intake: former Year of sobriety/quit date alcohol: 2020 Substance/Drug Use: never Adopted: No Caregiver/support person: No Lives independently: Yes Household members: children Housing: Apartment Marital status: / Marital status details: Has been a for 5 years Number of children: 3 Number of grandchildren: 13 Highest education level completed: High School Graduate service: No Current occupational status: disabled Current occupation: trying to get disability Current occupational exposures/hazards: No Pets and animals: Yes Pets & animals: cat(s) Leisure activites: games and other Leisure activities details: Watch movies Sexually active: Yes Do you think of yourself as: Straight/Heterosexual Current gender identity: Female Michelle/Sabianist: None Special michelle needs: No Female Reproductive History: Para: 3 Spontaneous abortions: No Physical Exam Narrative: EXAM NARRATIVE: General: Alert, no acute distress. Skin: Warm, dry. Head: Normocephalic, atraumatic. Neck: Supple, trachea midline. Eye: Extraocular movements are intact. Ears, nose, mouth and throat: tacky oral mucosa Cardiovascular: Regular, Normal peripheral perfusion. Respiratory: Lungs are clear to auscultation, respirations are non-labored, breath sounds are equal, Symmetrical chest wall expansion. Gastrointestinal: Soft, Nontender, Non distended, Normal bowel sounds. Musculoskeletal: Normal ROM, no deformity. Neurological: Alert and oriented, No focal neurological deficit observed. Psychiatric: Cooperative, appropriate mood & affect. Course Vital Signs: Vital signs: Vital Signs Temperature 97.6 F 03/31/23 07:24 Pulse Rate 76 03/31/23 07:40 Respiratory Rate 16 03/31/23 07:24 Blood Pressure 161/91 03/31/23 07:40 Pulse Oximetry 96 03/31/23 07:40 Oxygen Delivery Me thod Room Air 03/31/23 07:40 MDM - Abdominal Pain Medical Decision Making Medical decision making: Concern for worsening of her diverticulitis. However her exam does not indicate an acute surgical abdomen. Lab work was ordered. Zofran and fluids were given. Patient is quite a bit improved. She does have an elevation in her CRP but her white count is not elevated so I do not think we need to repeat imaging today. She just needs antiemetics and perhaps a different pain medication at home. Reexamination: Patient remained stable. No increased work of breathing. Nausea and vomiting is now controlled. No altered mental status. Lab Data 03/31/23 07:32 03/31/23 07:32 Labs/Radiology: Laboratory Results WBC 7.71 10^3/uL (3.29-11.43) 03/31/23 07:32 RBC 4.51 10^6/uL (3.85-5.65) 03/31/23 07:32 Hgb 13.80 g/dL (11.27-16.99) 03/31/23 07:32 Hct 42.7 % (36-47) 03/31/23 07:32 MCV 94.7 fl (85-98) 03/31/23 07:32 MCH 30.6 pg (27-33) 03/31/23 07:32 MCHC 32.3 g/dL (30-55) 03/31/23 07:32 RDW 12.2 % (12.1-15.1) 03/31/23 07:32 Plt Count 348 10^3/cmm (157-399) 03/31/23 07:32 MPV 10.6 fL (7.4-10.4) H 03/31/23 07:32 Neut % (Auto) 56.7 % 03/31/23 07:32 Lymph % (Auto) 32.3 % 03/31/23 07:32 [place] % (Auto) 8.3 % 03/31/23 07:32 Eos % (Auto) 1.7 % 03/31/23 07:32 Baso % (Auto) 0.6 % 03/31/23 07:32 Neut # (Auto) 4.37 10^3/uL (1.8-7.7) 03/31/23 07:32 Lymph # (Auto) 2.5 10^3/uL (0.8-4.8) 03/31/23 07:32 [place] # (Auto) 0.6 10^3/uL (0.2-0.9) 03/31/23 07:32 Eos # (Auto) 0.1 10^3/uL (0.0-0.8) 03/31/23 07:32 Baso # (Auto) 0.1 10^3/uL (0.0-0.1) 03/31/23 07:32 Nucleated RBC % (auto) 0 % 03/31/23 07:32 Nucleated RBCs # 0.0 /100WBC 03/31/23 07:32 Sodium 138 mmol/L (136-145) 03/31/23 07:32 Potassium 4.1 mmol/L (3.5-5.1) 03/31/23 07:32 Chloride 102 mmol/L (98-107) 03/31/23 07:32 Carbon Dioxide 26 mmol/L (22-29) 03/31/23 07:32 Anion Gap 14.1 (5-19) 03/31/23 07:32 BUN 10 mg/dL (6-20) 03/31/23 07:32 Creatinine 0.8 mg/dL (0.5-0.9) 03/31/23 07:32 GFR Calculation 74.5 mL/min (90-130) L 03/31/23 07:32 Glucose 94 mg/dL (65-115) 03/31/23 07:32 Calculated Osmolality 285 mOsm/kg (285-295) 03/31/23 07:32 Calcium 9.3 mg/dL (8.5-10.5) 03/31/23 07:32 Total Bilirubin 0.3 mg/dL (0.15-1.2) 03/31/23 07:32 AST 19 U/L (0-32) 03/31/23 07:32 ALT 14 U/L (0-33) 03/31/23 07:32 Alkaline Phosphatase 92 U/L (35-105) 03/31/23 07:32 C-Reactive Protein 69.3 mg/L (0.0-4.9) H 03/31/23 07:32 Total Protein 7.4 g/dL (6.6-8.7) 03/31/23 07:32 Albumin 4.3 g/dL (3.5-5.2) 03/31/23 07:32 Globulin 3.1 g/dL (1.3-4.6) 03/31/23 07:32 Amylase 55 U/L (28-100) 03/31/23 07:32 Lipase 27 U/L (13-60) 03/31/23 07:32 Urine Color Light yellow (Yellow) 03/31/23 08:01 Urine Appearance Clear (CLEAR) 03/31/23 08:01 Urine pH 7 (5-7) 03/31/23 08:01 Ur Specific [place] 1.005 (1.005-1.030) 03/31/23 08:01 Urine Protein Neg (Negative) 03/31/23 08:01 Urine Glucose (UA) Norm (Normal) 03/31/23 08:01 Urine Ketones Negative (Negative) 03/31/23 08:01 Urine Blood Neg (Negative) 03/31/23 08:01 Urine Nitrate Negative (Negative) 03/31/23 08:01 Urine Bilirubin Neg (Negative) 03/31/23 08:01 Urine Urobilinogen Norm mg/dL (Negative) 03/31/23 08:01 Ur Leukocyte Esterase Negative (Negative) 03/31/23 08:01 Urine RBC None /hpf (0-2) 03/31/23 08:01 Urine WBC None /hpf (0-5) 03/31/23 08:01 Ur Squamous Epith Cells None /hpf (0-5) 03/31/23 08:01 Amorphous Sediment Not Reportable 03/31/23 08:01 Urine Bacteria 1+ /hpf (NONE) H 03/31/23 08:01 XR interpretation done by ED provider, pending radiology final review Other Data - IV Zofran and IV fluids given in the emergency room. - Discharged home - Discussed findings and plan with patient. Answered any questions. - All laboratory values were reviewed and interpreted personally by myself, the ER physician - Evaluation and treatment of this problem were appropriate in the emergency setting Discharge Plan Discharge Patient Disposition: Home Clinical Impression: Diverticulitis, Vomiting, Acute dehydration Condition: Stable Prescriptions: New tramadol 50 mg tablet 50 mg PO Q8H PRN (Reason: pain) Qty: 20 0RF ondansetron 8 mg tablet,disintegrating 8 mg PO .q6 PRN (Reason: nausea and vomiting) Qty: 14 0RF diclofenac potassium 50 mg tablet 50 mg PO BID PRN (Reason: pain) Qty: 20 0RF Miralax 17 gram/dose powder 17 g PO DAILY Qty: 510 0RF Rx Instructions: Take 1-2 scoops daily for the next 3 months to keep stools soft No Action mirtazapine 15 mg tablet 15 mg PO BEDTIME Qty: 90 2RF meloxicam 15 mg tablet 15 mg PO DAILY Qty: 30 0RF tizanidine 4 mg tablet 4 mg PO BID PRN (Reason: muscle spasticity) Qty: 60 0RF atorvastatin 40 mg tablet 40 mg PO DAILY 90 Days Qty: 90 1RF gabapentin [Neurontin] 100 mg capsule 100 mg PO TID Qty: 90 1RF Linzess 72 mcg capsule 72 mcg PO QAM Qty: 30 5RF celecoxib [Celebrex] 200 mg capsule 200 mg PO BID 30 Days Qty: 90 3RF lactulose 10 gram/15 mL solution 15 ml PO DAILY PRN (Reason: constipation) Qty: 473 2RF pantoprazole 40 mg tablet,delayed release (DR/EC) 40 mg PO BID Qty: 180 0RF ciprofloxacin HCl 500 mg tablet 500 mg PO BID Qty: 10 0RF metronidazole 500 mg tablet 500 mg PO BID Qty: 10 0RF hydrocodone-acetaminophen 5-325 mg tablet 1 tab PO Q6H PRN (Reason: pain (scale score 7-10)) Qty: 7 0RF Discharge Orders: Discharge ED (Routine); Ordered 03/31/23 Ordered By: Estrella Mims Referrals: Geri Mukherjee DO [Primary Care Provider] - (You have been screened and evaluated and felt safe for discharge. Health conditions do change or evolve sometimes and as such it is important that you follow up with your Primary Doctor to be re checked, 3-5 days is a general good time frame for follow up. You are always welcome to return to the ED for re assessment if your symptoms are worsening or you have new concerns) Discharge Diet: Advance as tolerated Discharge Activity: Resume usual activity Patient Instructions: Opioid Safety, Pain Management Coding Level of Care Code ED Regional Loss Prevention Manager for James Nathan
[2023-03-31 07:39] LABS: Basophils # 0.1 10^3/uL (0.0-0.1); Basophils % 0.6 %; Eosinophils # 0.1 10^3/uL (0.0-0.8); Eosinophils % 1.7 %; Hematocrit 42.7 % (36-47); Lymphocytes # 2.5 10^3/uL (0.8-4.8); Lymphocytes % 32.3 %; Mean Corpuscular HGB Conc 32.3 g/dL (30-55); Mean Corpuscular Hemoglobin 30.6 pg (27-33); Mean Corpuscular Volume 94.7 fl (85-98); Mean Platelet Volume 10.6 fL (7.4-10.4); Monocytes # 0.6 10^3/uL (0.2-0.9); Monocytes % 8.3 %; Neutrophils # 4.37 10^3/uL (1.8-7.7); Neutrophils % 56.7 %; Nucleated Red Blood Cells % 0 %; Platelet Count 348 10^3/cmm (157-399); Red Blood Count 4.51 10^6/uL (3.85-5.65); Red Cell Distribution Width 12.2 % (12.1-15.1); White Blood Count 7.71 10^3/uL (3.29-11.43)
[2023-03-31 07:40] VITALS: BP 161/91; PULSE 76; O2SAT 96
[2023-03-31] MEDS: ondansetron 2 mg/ML SDV 2 mL 4 MG IVP (07:45)
[2023-03-31] MEDS: sodium chloride 0.9% 1,000 ML 999 ML IV (07:45)
[2023-03-31 07:53] LABS: Alanine Aminotransferase 14 U/L (0-33); Albumin Level 4.3 g/dL (3.5-5.2); Alkaline Phosphatase 92 U/L (35-105); Amylase 55 U/L (28-100); Anion Gap 14.1 (5-19); Aspartate Amino Transferase 19 U/L (0-32); Blood Urea Nitrogen 10 mg/dL (6-20); C Reactive Protein 69.3 mg/L (0.0-4.9); Calcium 9.3 mg/dL (8.5-10.5); Carbon Dioxide 26 mmol/L (22-29); Chloride 102 mmol/L (98-107); Globulin 3.1 g/dL (1.3-4.6); Glomerular Filtration Rate 74.5 mL/min (90-130); Glucose 94 mg/dL (65-115); Lipase 27 U/L (13-60); Osmolality Calculated 285 mOsm/kg (285-295); Potassium 4.1 mmol/L (3.5-5.1); Sodium 138 mmol/L (136-145); Total Bilirubin 0.3 mg/dL (0.15-1.2); Total Protein 7.4 g/dL (6.6-8.7)
[2023-03-31 08:30] LABS: Urine Color Light yellow (Yellow)
[2023-03-31 08:31] LABS: Add Urine Culture? No; Bacteria Urine 1+ /hpf; Bilirubin Urine Neg (Negative); Blood Urine Neg (Negative); Glucose Urine UA Norm (Normal); Ketones Urine Negative (Negative); Leukocyte Esterase Urine Negative (Negative); Nitrate Urine Negative (Negative); Protein Urine Neg (Negative); Specific Gravity, Urine 1.005 (1.005-1.030); Urine Appearance Clear (CLEAR); Urobilinogen Urine Norm (Negative); pH Urine 7 (5-7)
== END 2023-03-31 11:51 | disposition home or self-care (01) ==
PROVIDERS: Emergency Provider Emergency Medicine; PCP Family Medicine
DX: K57.92 Diverticulitis of intestine, part unspecified, without perforation or abscess without bleeding (principal); R11.11 Vomiting without nausea; E86.0 Dehydration; Z87.891 Personal history of nicotine dependence
CPT/HCPCS: 80053; 81001; 82150; 83690; 85025; 86140; 96361; 96374; 99284; J2405; J7030

== ENCOUNTER → 2023-04-09 09:34 | Outpatient (BNVA) | payer MEDICAID, SELFPAY ==
[2022-03-06 16:00] VITALS: BP 125/80; BMI 27.2
== END ==
PROVIDERS: PCP Family Medicine; Visit Provider Anesthesiology Pain Medicine
DX: G89.29 Other chronic pain; M54.42 Lumbago with sciatica, left side; M54.41 Lumbago with sciatica, right side; M50.90 Cervical disc disorder, unspecified, unspecified cervical region; M47.812 Spondylosis without myelopathy or radiculopathy, cervical region; M47.816 Spondylosis without myelopathy or radiculopathy, lumbar region
CPT/HCPCS: 99214

== ENCOUNTER → 2023-04-10 08:17 | Outpatient (BNVA) | payer MEDICAID, SELFPAY ==
[2022-03-06 16:00] VITALS: BP 125/80; BMI 27.2
== END ==
PROVIDERS: PCP Family Medicine; Visit Provider Family Medicine
DX: E78.5 Hyperlipidemia, unspecified (principal)
CPT/HCPCS: 80061

== ENCOUNTER → 2023-04-23 09:16 | Outpatient (BNVA) | payer MEDICAID, SELFPAY ==
[2022-03-06 16:00] VITALS: BP 125/80; BMI 27.2
== END ==
PROVIDERS: PCP Family Medicine; Visit Provider Nurse Practitioner Family
DX: J06.9 Acute upper respiratory infection, unspecified (principal)
CPT/HCPCS: 87400; 87426

== ENCOUNTER → 2023-04-26 15:16 | Outpatient (BNVA) | payer MEDICAID, SELFPAY ==
[2022-03-06 16:00] VITALS: BP 125/80; BMI 27.2
== END ==
PROVIDERS: PCP Family Medicine; Visit Provider Orthopaedic Surgery
DX: M54.2 Cervicalgia (principal)
CPT/HCPCS: 72050; 99214

== ENCOUNTER 2023-04-27 08:45 | Emergency (ER) | payer MEDICAID, SELFPAY ==
[2022-03-06 16:00] VITALS: BP 125/80; BMI 27.2
[2023-04-27 08:49] VITALS: BP 175/76; PULSE 80; RESP 17; TEMP 36.6; O2SAT 96
--- NOTE | 2023-04-27 09:11 | ECG_ITS ---
[facility] Test Date: 2023-04-27 Pat Name: Ashia Saleh Department: Room: Gender: Female It Infrastructure Manager: : 1965 Requested By: Charly Burgess Order Number: [id number] Reyes MD: Zurdo Lara M.D. Measurements Intervals Freedom Rate: 66 P: 54 DE: 128 QRS: 44 QRSD: 85 T: 64 QT: 387 QTc: 406 Interpretive Statements SINUS RHYTHM Compared to ECG 01/03/2021 11:02:33 No significant changes Electronically Signed On 04-27-2023 10:34:20 CDT by Zurdo Lara M.D. [id number]
--- NOTE | 2023-04-27 09:11 | XRR_ITS ---
PROCEDURE INFORMATION: Exam: XR Chest Exam date and time: 04/27/2023 9:30 AM Age: 57 years old Clinical indication: Cough and dyspnea; Additional info: Dyspnea/cough TECHNIQUE: Imaging protocol: Radiologic exam of the chest. Views: 1 view. COMPARISON: CR XR chest 1V portable [id number] 01/03/2021 11:36 AM FINDINGS: Lungs: Unremarkable. No consolidation. Pleural spaces: Unremarkable. No pleural effusion. No pneumothorax. Heart/Mediastinum: Unremarkable. No cardiomegaly. Bones/joints: Unchanged mild scoliosis with mild multilevel spondylosis. XR/XR chest 1V portable [id number] IMPRESSION: No acute disease.
--- NOTE | 2023-04-27 09:20 | ED_ITS ---
HPI - URI/Sore Throat 2 General: Chief Complaint: Upper Respiratory Infection Stated Complaint: cough, dizzy Time Seen by Provider: 04/27/23 08:57 Source: patient Mode of arrival: ambulatory History of Present Illness: 57-year-old female was seen earlier this week in walk-in clinic . Patient at that time had upper respiratory symptoms flu and COVID swabs were done and were negative she continues to have productive cough clear sinus drainage but the cough is discolored mucus that is progressively worsening. Low-grade subjective fever patient is a non-smoker and has no history of any chronic respiratory problems denies chest pain. MD elicited complaint: cough Onset (ago): day(s) Consistency: progressively worsening Severity: mild Description of mucous: green Relieving factors: nothing Associated symptoms: Reports congestion, rhinorrhea and sinus pain; Deny abdominal pain, change in voice, chills, chest pain, cough, diarrhea, epistaxis, ear or mastoid pain, fever(s), headache(s), myalgias, nasal congestion, nausea, rash, short of breath, stiffness, sore throat or vomiting Treatments prior to arrival: none Review of Systems 2 Const: Denies: fever(s) or chills ENMT: Reports: sinus pain; Denies: ear or mastoid pain, nasal congestion or epistaxis Card: Denies: chest pain Resp: Denies: dyspnea GI: Denies: abdominal pain, nausea, vomiting or diarrhea : Denies: dysuria, urinary frequency or urinary urgency Musc: Denies: neck pain or back pain Skin/Breast: Denies: rash Neuro: Denies: headache(s) PFSH ED 2 PFSH: Medical History Major depressive disorder, recurrent episode with anxious distress Chronic neck pain TMJ (temporomandibular joint syndrome) Bereavement Sudden loss of 29 yr old daughter 12/31/20 Insomnia Psychiatric care Generalized anxiety disorder Lung nodule Left lower lobe - 7mm - repeat in 07/01 Constipation GERD (gastroesophageal reflux disease) Surgical History History of dilation and curettage (~07/20/20) 07/20/2020: Hysteroscopy, dilation and curettage with myosure at [place], [place] by Dr. Finnegan. H/O esophagogastroduodenoscopy (11/27/19) mild gastritis. H/O colonoscopy 03/14/2016 Repeat in 10 years Family History Mother Cancer Lung cancer Other Major depressive disorder, recurrent episode, moderate with anxious distress Denies family history of Diabetes Ovarian cyst CAD (coronary artery disease) Clotting disorder Hyperlipidemia Chronic kidney disease (CKD) Anesthesia complication Bleeding disorder Hypertension Thyroid disease Stroke Social History Quit status (tobacco/nicotine): has quit using Year quit tobacco: 2021 Second hand smoke exposure: Yes Alcohol intake: former Year of sobriety/quit date alcohol: 2020 Substance/Drug Use: never Adopted: No Caregiver/support person: No Lives independently: Yes Household members: children Housing: Apartment Marital status: / Marital status details: Has been a for 5 years Number of children: 3 Number of grandchildren: 13 Highest education level completed: High School Graduate service: No Current occupational status: disabled Current occupation: trying to get disability Current occupational exposures/hazards: No Pets and animals: Yes Pets & animals: cat(s) Leisure activites: games and other Leisure activities details: Watch movies Sexually active: Yes Do you think of yourself as: Straight/Heterosexual Current gender identity: Female Michelle/Sabianism: None Special michelle needs: No Female Reproductive History: Para: 3 Spontaneous abortions: No Physical Exam 2 Const: GENERAL APPEARANCE: cooperative and comfortable O RIENTATION/CONSCIOUSNESS: Yes awake, Yes oriented to person, Yes oriented to place and Yes oriented to time HENMT: COMMON NORMALS: normocephalic, atraumatic and hearing grossly normal bilaterally HEAD & SCALP: normocephalic and atraumatic Resp: COMMON NORMALS: normal respiratory effort, No retractions and No use of accessory muscles AUSCULTATION: rhonchi left lower and wheezes Cardio: COMMON NORMALS: regular rate, regular rhythm and No murmurs present (Cardio) RATE: regular rate RHYTHM: regular rhythm GI: COMMON NORMALS: Soft to palpation and No hepatosplenomegaly present A USCULTATION: Yes normoactive bowel sounds PALPATION: Yes Soft to palpation, No Tenderness to palpation present (GI), No Guarding due to palpation present (GI) and Yes No hepatosplenomegaly present Extremity: COMMON NORMALS: normal to inspection, capillary refill normal, no clubbing, cyanosis or edema, no calf tenderness and no pedal edema Neuro: SENSORIUM/ORIENTATION: Yes oriented to person, Yes oriented to place and Yes oriented to time Skin: COMMON NORMALS: no rashes or lesions noted GENERAL SKIN EXAM: no rashes or lesions noted Course 2 Vital Signs: Vital signs: Vital Signs Temperature 97.8 F 04/27/23 08:49 Pulse Rate 67 04/27/23 09:59 Respiratory Rate 17 04/27/23 08:49 Blood Pressure 132/71 04/27/23 09:59 Pulse Oximetry 93 04/27/23 09:59 Oxygen Delivery Me thod Room Air 04/27/23 09:59 MDM - URI/Sore Throat Medical Decision Making Patient has some coarse breath sounds at the left base she is reporting productive cough. Chest x-ray did not show anything convincing for infiltrate. Put her on doxycycline 100 twice daily for 7 days albuterol as needed follow-up with primary care if not improving Medical Records I reviewed the patient's medical records. Lab Data I reviewed the patient's lab results. 04/27/23 09:23 04/27/23 09:23 Radiology Impressions Chest X-Ray 04/27/23 09:11 IMPRESSION: No acute disease. Laboratory Results WBC 6.30 10^3/uL (3.29-11.43) 04/27/23 09:23 RBC 4.31 10^6/uL (3.85-5.65) 04/27/23 09:23 Hgb 13.20 g/dL (11.27-16.99) 04/27/23 09:23 Hct 40.7 % (36-47) 04/27/23 09:23 MCV 94.4 fl (85-98) 04/27/23 09:23 MCH 30.6 pg (27-33) 04/27/23 09:23 MCHC 32.4 g/dL (30-55) 04/27/23 09:23 RDW 12.2 % (12.1-15.1) 04/27/23 09:23 Plt Count 254 10^3/cmm (157-399) 04/27/23 09: MPV 11.0 fL (7.4-10.4) H 04/27/23 09: Neut % (Auto) 49.9 % 04/27/23 09: Lymph % (Auto) 40.0 % 04/27/23 09:23 [place] % (Auto) 6.5 % 04/27/23 09: Eos % (Auto) 2.1 % 04/27/23 09: Baso % (Auto) 1.0 % 04/27/23 09: Neut # (Auto) 3.15 10^3/uL (1.8-7.7) 04/27/23 09: Lymph # (Auto) 2.5 10^3/uL (0.8-4.8) 04/27/23 09: [place] # (Auto) 0.4 10^3/uL (0.2-0.9) 04/27/23 09: Eos # (Auto) 0.1 10^3/uL (0.0-0.8) 04/27/23 09: Baso # (Auto) 0.1 10^3/uL (0.0-0.1) 04/27/23 09: Nucleated RBC % (auto) 0 % 04/27/23: Nucleated RBCs # 0.0 /100WBC 04/27/23 09: Sodium 142 mmol/L (136-145) 04/27/23 09:23 Potassium 4.1 mmol/L (3.5-5.1) 04/27/23 09: Chloride 106 mmol/L (98-107) 04/27/23 09: Carbon Dioxide 24 mmol/L (22-29) 04/27/23 09:23 Anion Gap 16.1 (5-19) 04/27/23 09:23 BUN 15 mg/dL (6-20) 04/27/23 09:23 Creatinine 0.7 mg/dL (0.5-0.9) 04/27/23 09:23 GFR Calculation 86.9 mL/min (90-130) L 04/27/23 09:23 Glucose 95 mg/dL (65-115) 04/27/23 09:23 Calculated Osmolality 295 mOsm/kg (285-295) 04/27/23 09:23 Calcium 9.0 mg/dL (8.5-10.5) 04/27/23 09:23 Total Bilirubin 0.4 mg/dL (0.15-1.2) 04/27/23 09:23 AST 18 U/L (0-32) 04/27/23 09:23 ALT 24 U/L (0-33) 04/27/23 09:23 Alkaline Phosphatase 84 U/L (35-105) 04/27/23 09:23 Total Protein 6.5 g/dL (6.6-8.7) L 04/27/23 09:23 Albumin 4.4 g/dL (3.5-5.2) 04/27/23 09:23 Globulin 2.1 g/dL (1.3-4.6) 04/27/23 09:23 All radiology interpretation(s) finalized by discharge Discharge Plan Discharge Patient Disposition: Home Clinical Impression: Pneumonia Condition: Stable Prescriptions: New doxycycline hyclate 100 mg capsule 100 mg PO BID 10 Days Qty: 20 0RF albuterol sulfate 90 mcg/actuation HFA aerosol inhaler 2 inh INHALATION Q4H PRN (Reason: shortness of breath or wheezing) Qty: 18 0RF No Action mirtazapine 15 mg tablet 15 mg PO BEDTIME Qty: 90 2RF tizanidine 4 mg tablet 4 mg PO BID PRN (Reason: muscle spasticity) Qty: 60 0RF Linzess 72 mcg capsule 72 mcg PO QAM Qty: 30 5RF lactulose 10 gram/15 mL solution 15 ml PO DAILY PRN (Reason: constipation) Qty: 473 2RF pantoprazole 40 mg tablet,delayed release (DR/EC) 40 mg PO BID Qty: 180 1RF polyethylene glycol 3350 [Miralax] 17 gram/dose powder 17 g PO DAILY Qty: 510 0RF hydrocodone-acetaminophen 5-325 mg tablet 1 tab PO Q6H PRN (Reason: Pain) Tylenol Ex Str Rapid Release 500 mg Tablet 1,000 mg PO Q6H PRN (Reason: Pain) ibuprofen 200 mg Tablet 200 - 400 mg PO Q6H PRN (Reason: Pain) Celebrex 200 mg capsule 200 mg PO BID PRN (Reason: Pain) atorvastatin 40 mg tablet 40 mg PO BEDTIME Discharge Orders: Discharge ED (Routine); Ordered 04/27/23 Ordered By: Charly Coleman Referrals: Geri Mukherjee DO [Primary Care Provider] - Discharge Diet: Usual diet Discharge Activity: Increase activity as tolerated Patient Instructions: Opioid Safety, Pain Management Activity Restrictions/Additional Instructions: Thank you for choosing [facility] for your healthcare needs today. Please realize this is an emergency room and that we are providing you with a medical screening exam and this may not be complete and all inclusive of all the testing and or work up that you may need to determine your ailment or severity of your illness. It is very important that you follow up as instructed or that you return to the Emergency Department should you have concerns or if your condition changes or worsens in any way. Coding Level of Care Code ED Systems Analyst Developer for James Nathan
--- NOTE | 2023-04-27 09:29 | PC.PHAR ---
PT STATES SHE TAKES CARE OF HER OWN MEDICATIONS-PT STATES SHE TAKES THE MEDICATIONS ENTERED EXT DOESNT SHOW THEM FILLED RECENTLY PT STATES SHE GETS IN THE MAIL AND IS STILL TAKING ALL MEDS ENTERED
[2023-04-27 09:31] LABS: Basophils # 0.1 10^3/uL (0.0-0.1); Eosinophils # 0.1 10^3/uL (0.0-0.8); Eosinophils % 2.1 %; Hematocrit 40.7 % (36-47); Lymphocytes # 2.5 10^3/uL (0.8-4.8); Mean Corpuscular HGB Conc 32.4 g/dL (30-55); Mean Corpuscular Hemoglobin 30.6 pg (27-33); Mean Corpuscular Volume 94.4 fl (85-98); Monocytes # 0.4 10^3/uL (0.2-0.9); Monocytes % 6.5 %; Neutrophils # 3.15 10^3/uL (1.8-7.7); Neutrophils % 49.9 %; Nucleated Red Blood Cells % 0 %; Platelet Count 254 10^3/cmm (157-399); Red Blood Count 4.31 10^6/uL (3.85-5.65); Red Cell Distribution Width 12.2 % (12.1-15.1)
[2023-04-27 09:49] LABS: Alanine Aminotransferase 24 U/L (0-33); Albumin Level 4.4 g/dL (3.5-5.2); Alkaline Phosphatase 84 U/L (35-105); Anion Gap 16.1 (5-19); Aspartate Amino Transferase 18 U/L (0-32); Blood Urea Nitrogen 15 mg/dL (6-20); Carbon Dioxide 24 mmol/L (22-29); Chloride 106 mmol/L (98-107); Globulin 2.1 g/dL (1.3-4.6); Glomerular Filtration Rate 86.9 mL/min (90-130); Glucose 95 mg/dL (65-115); Osmolality Calculated 295 mOsm/kg (285-295); Potassium 4.1 mmol/L (3.5-5.1); Sodium 142 mmol/L (136-145); Total Bilirubin 0.4 mg/dL (0.15-1.2); Total Protein 6.5 g/dL (6.6-8.7)
[2023-04-27 09:59] VITALS: BP 132/71; PULSE 67; O2SAT 93
== END 2023-04-27 10:06 | disposition home or self-care (01) ==
PROVIDERS: Emergency Provider Family Medicine; PCP Family Medicine
DX: J18.9 Pneumonia, unspecified organism (principal); Z87.891 Personal history of nicotine dependence
CPT/HCPCS: 71045; 80053; 85025; 93005; 99285

== ENCOUNTER 2023-05-18 07:37 | Outpatient (CLI) | payer MEDICAID, SELFPAY ==
[2022-03-06 16:00] VITALS: BP 125/80; BMI 27.2
--- NOTE | 2023-05-18 08:00 | MR_ITS ---
WS: [id number] MRI CERVICAL SPINE NONCONTRAST HISTORY: M54.2 - Cervicalgia COMPARISON: 04/27/2021 Technique: Multiplanar, multisequence noncontrast imaging of the cervical spine. Mild straightening of the normal cervical lordosis. Posterior alignment is normal. No marrow edema or fracture. Signal within the cervical cord is normal. Visualized posterior fossa is unremarkable. Craniocervical junction, C1 and C2 relationship, odontoid process and soft tissues are normal. C2-C3: Normal. C3-C4: Normal. C4-C5: Shallow central disc protrusion and mild facet arthritis. Small bilateral foraminal osteophyte s. Very minimal encroachment upon the ventral thecal sac and mild foraminal stenosis. C5-C6: Tiny RIGHT paracentral disc protrusion and mild facet arthritis. Small foraminal osteophytes w ithout significant stenosis. C6-C7: Very small foraminal osteophytes. No stenosis or disc protrusions. C7-T1: No significant stenosis. No disc protrusions. Paraspinal soft tissue are normal. IMPRESSION: 1. No high-grade central or foraminal stenosis. 2. Reidentified are very small disc protrusions at C4-5 and C5-6 as described above. No progression since the prior study. 3. Small foraminal osteophytes from C4-5 through C6-7 without significant stenosis. 4. No myelomalacia.
== END 2023-05-18 07:38 | disposition home or self-care (01) ==
LOC: RAD 07:39
PROVIDERS: Absent Provider Orthopaedic Surgery; PCP Family Medicine; Visit Provider Anesthesiology Pain Medicine
DX: M50.222 Other cervical disc displacement at C5-C6 level (principal); M25.78 Osteophyte, vertebrae
CPT/HCPCS: 72141

== ENCOUNTER → 2023-05-29 13:35 | Outpatient (BNVA) | payer OTHER, SELFPAY ==
[2022-03-06 16:00] VITALS: BP 125/80; BMI 27.2
== END ==
PROVIDERS: PCP Family Medicine; Visit Provider Orthopaedic Surgery
DX: Z09 Encounter for follow-up examination after completed treatment for conditions other than malignant neoplasm (principal)
CPT/HCPCS: 99213

== ENCOUNTER → 2023-06-01 08:35 | Outpatient (BNVA) | payer MEDICAID, SELFPAY ==
[2022-03-06 16:00] VITALS: BP 125/80; BMI 27.2
== END ==
PROVIDERS: PCP Family Medicine; Visit Provider Specialist
DX: M75.102 Unspecified rotator cuff tear or rupture of left shoulder, not specified as traumatic (principal); M12.812 Other specific arthropathies, not elsewhere classified, left shoulder; Z71.89 Other specified counseling
CPT/HCPCS: 20610; J1100; J2795; J3301

== ENCOUNTER → 2023-07-10 09:44 | Outpatient (BNVA) | payer MEDICAID, SELFPAY ==
[2022-03-06 16:00] VITALS: BP 125/80; BMI 27.2
== END ==
PROVIDERS: PCP Family Medicine; Visit Provider Anesthesiology Pain Medicine
DX: M47.816 Spondylosis without myelopathy or radiculopathy, lumbar region (principal); M54.42 Lumbago with sciatica, left side; M54.41 Lumbago with sciatica, right side; G89.29 Other chronic pain; M47.812 Spondylosis without myelopathy or radiculopathy, cervical region; M50.90 Cervical disc disorder, unspecified, unspecified cervical region; M43.16 Spondylolisthesis, lumbar region
CPT/HCPCS: 99214

== ENCOUNTER 2023-07-13 07:35 | Outpatient (CLI) | payer OTHER, SELFPAY ==
[2022-03-06 16:00] VITALS: BP 125/80; BMI 27.2
--- NOTE | 2023-07-13 08:00 | MM_ITS ---
WS: [id number] BILATERAL SCREENING DIGITAL TOMOSYNTHESIS MAMMOGRAM WITH CAD HISTORY: screening COMPARISON: 07/11/2022, 06/16/2021 and 01/19/2020 Bilateral CC and MLO views with tomosynthesis and synthetic mammography submitted. Computer aided det ection analyzed. Breast composition: There are scattered areas of fibroglandular density. No suspicious masses, microc alcifications or architectural distortion. Bilateral intramammary lymph nodes. MM/[place] [id number] IMPRESSION: BI-RADS: 2-Benign FOLLOW UP: 1 Year Follow-up
== END 2023-07-13 07:36 | disposition home or self-care (01) ==
LOC: RAD 07:35
PROVIDERS: PCP Family Medicine; Visit Provider Family Medicine
DX: Z12.31 Encounter for screening mammogram for malignant neoplasm of breast (principal); R92.323 Mammographic fibroglandular density, bilateral breasts
CPT/HCPCS: 77063; 77067

== ENCOUNTER 2023-08-29 09:52 | Emergency (ER) | payer MEDICAID, SELFPAY ==
[2022-03-06 16:00] VITALS: BP 125/80; BMI 27.2
[2023-08-29 10:37] VITALS: BP 138/77; PULSE 77; RESP 18; TEMP 36.8; O2SAT 97
--- NOTE | 2023-08-29 11:01 | W.ED.BACK ---
HPI - Back Pain/Injury General: Chief Complaint: Back Pain/Injury Stated Complaint: lower left back pain, neck pain Time Seen by Provider: 08/29/23 10:42 Source: patient Mode of arrival: ambulatory History of Present Illness: 58-year-old female with chronic neck and back pain that is unchanged. In the past she was seen in pain management which she is no longer seeing them. She did not do anything recent no falls or trauma or particular triggering injury that seemed to worsen her symptoms. She also is complaining some fullness and discomfort in her left ear. No fever sweats or chills no dysuria urgency or frequency. MD elicited complaint: back pain Associated symptoms: Deny abdominal pain, chills, dysuria, fever(s) or urinary urgency Review of Systems Const: Denies: fever(s) or chills Card: Denies: chest pain Resp: Denies: dyspnea GI: Denies: abdominal pain : Denies: dysuria, urinary frequency or urinary urgency Musc: Denies: neck pain or back pain Skin/Breast: Denies: rash PFSH ED PFSH: Medical History Major depressive disorder, recurrent episode with anxious distress Chronic neck pain TMJ (temporomandibular joint syndrome) Bereavement Sudden loss of 29 yr old daughter 12/31/20 Insomnia Psychiatric care Generalized anxiety disorder Lung nodule Left lower lobe - 7mm - repeat in 07/01 Constipation GERD (gastroesophageal reflux disease) Surgical History History of dilation and curettage (~07/20/20) 07/20/2020: Hysteroscopy, dilation and curettage with myosure at [place], [place] by Dr. Finnegan. H/O esophagogastroduodenoscopy (11/27/19) mild gastritis. H/O colonoscopy 03/14/2016 Repeat in 10 years Family History Mother Cancer Lung cancer Other Major depressive disorder, recurrent episode, moderate with anxious distress Denies family history of Diabetes Ovarian cyst CAD (coronary artery disease) Clotting disorder Hyperlipidemia Chronic kidney disease (CKD) Anesthesia complication Bleeding disorder Hypertension Thyroid disease Stroke Social History Smoking and tobacco/nicotine status: never used tobacco/nicotine Quit status (tobacco/nicotine): has quit using Year quit tobacco: 2021 Second hand smoke exposure: Yes Alcohol intake: former Year of sobriety/quit date alcohol: 2020 Substance/Drug Use: never Adopted: No Caregiver/support person: No Lives independently: Yes Household members: children Housing: Apartment Marital status: / Marital status details: Has been a for 5 years Number of children: 3 Number of grandchildren: 13 Highest education level completed: High School Graduate service: No Current occupational status: disabled Current occupation: trying to get disability Current occupational exposures/hazards: No Pets and animals: Yes Pets & animals: cat(s) Leisure activites: games and other Leisure activities details: Watch movies Sexually active: Yes Do you think of yourself as: Straight/Heterosexual Current gender identity: Female Michelle/Catholic: None Special michelle needs: No Female Reproductive History: Para: 3 Spontaneous abortions: No Physical Exam Const: GENERAL APPEARANCE: cooperative and comfortable ORIENTATION/CONSCIOUSNESS: Yes awake HENMT: COMMON NORMALS: normocephalic, atraumatic and hearing grossly normal bilaterally HEAD & SCALP: normocephalic and atraumatic Resp: COMMON NORMALS: normal respiratory effort, No retractions, No use of accessory muscles and clear to auscultation bilaterally AUSCULTATION: clear to auscultation bilaterally Cardio: COMMON NORMALS: regular rate, regular rhythm and No murmurs present (Cardio) RATE: regular rate RHYTHM: regular rhythm GI: COMMON NORMALS: Soft to palpation and No hepatosplenomegaly present AUSCULTATION: Yes normoactive bowel sounds PALPATION: Yes Soft to palpation, No Tenderness to palpation present (GI), No Guarding due to palpation present (GI) and Yes No hepatosplenomegaly present Extremity: COMMON NORMALS: normal to inspection, capillary refill normal, no clubbing, cyanosis or edema, no calf tenderness and no pedal edema Skin: COMMON NORMALS: no rashes or lesions noted GENERAL SKIN EXAM: no rashes or lesions noted Course Vital Signs: Vital signs: Vital Signs Temperature 98.2 F 08/29/23 10:37 Pulse Rate 77 08/29/23 11:14 Respiratory Rate 18 08/29/23 10:37 Blood Pressure 120/72 08/29/23 11:14 Pulse Oximetry 97 08/29/23 10:37 Oxygen Delivery Me thod Room Air 08/29/23 10:37 MDM - Back Pain/Injury Medical Decision Making Discharge patient home on prednisone anti-inflammatories and antihistamines. Follow-up with primary care if not improving. Medical Records I reviewed the patient's medical records. Labs I reviewed the patient's lab results. All radiology interpretation(s) finalized by discharge Discharge Plan Discharge Patient Disposition: Home Clinical Impression: Chronic neck pain, Chronic back pain, Otalgia Condition: Stable Prescriptions: New tizanidine 4 mg tablet 4 mg PO Q6H PRN (Reason: muscle spasticity) Qty: 20 0RF Rx Instructions: do not exceed 3 doses per 24 hrs diclofenac sodium 75 mg tablet,delayed release (DR/EC) 75 mg PO Q12H PRN (Reason: pain) Qty: 20 0RF Medrol (Job) 4 mg tablets,dose pack See Rx Instructions .ROUTE .COMPLEX Qty: 21 0RF Rx Instructions: orally per package directions No Action trazodone 100 mg tablet 100 mg PO BEDTIME PRN (Reason: insomnia) Qty: 30 3RF Rx Instructions: May take half to one tablet at bedtime as needed for sleep escitalopram oxalate [Lexapro] 10 mg tablet 10 mg PO .morning Qty: 30 4RF Rx Instructions: Take one tablet every morning pantoprazole 40 mg tablet,delayed release (DR/EC) 40 mg PO BID Qty: 180 1RF atorvastatin 40 mg tablet 40 mg PO BEDTIME Qty: 90 1RF Linzess 72 mcg capsule 72 mcg PO QAM Qty: 90 0RF lactulose 10 gram/15 mL solution 15 ml PO DAILY PRN (Reason: constipation) Qty: 473 2RF polyethylene glycol 3350 [Miralax] 17 gram/dose powder 17 g PO DAILY Qty: 510 0RF Tylenol Ex Str Rapid Release 500 mg Tablet 1,000 mg PO Q6H PRN (Reason: Pain) Discharge Orders: Discharge ED (Routine); Ordered 08/29/23 Ordered By: Charly Coleman Discharge Diet: Usual diet Discharge Activity: Increase activity as tolerated Patient Instructions: Earache (ED), Back Pain (ED), Neck Pain (ED), Opioid Safety, Pain Management Activity Restrictions/Additional Instructions: Thank you for choosing [facility] for your healthcare needs today. It is very important that you follow up as instructed or that you return to the Emergency Department should you have concerns or if your condition changes or worsens in any way. You were seen today for complaints of neck and back pain nausea or pain. On exam there is no evidence of infection in your ear. Since your neck and back pain are chronically recommend you follow-up with your primary care doctor with those. We did give you a short course of steroids as well as an anti-inflammatory and a muscle relaxer. The steroids will also help with the ear discomfort in addition you can use [id number] cetirizine 10 mg 1 pill twice a day. Coding Level of Care Code ED Computer Engineering Technologist for James Nathan
[2023-08-29 11:14] VITALS: BP 120/72; PULSE 77
== END 2023-08-29 11:15 | disposition home or self-care (01) ==
PROVIDERS: Emergency Provider Family Medicine
DX: M54.50 Low back pain, unspecified (principal); M54.2 Cervicalgia; G89.29 Other chronic pain; H92.02 Otalgia, left ear; Z79.899 Other long term (current) drug therapy; Z87.891 Personal history of nicotine dependence
CPT/HCPCS: 99284

== ENCOUNTER → 2023-09-04 13:49 | Outpatient (BNVA) | payer MEDICAID, SELFPAY ==
[2022-03-06 16:00] VITALS: BP 125/80; BMI 27.2
== END ==
PROVIDERS: PCP Family Medicine Adult Medicine; Visit Provider Orthopaedic Surgery
DX: M47.892 Other spondylosis, cervical region (principal); M54.2 Cervicalgia; G89.29 Other chronic pain
CPT/HCPCS: 72050; 99213

== ENCOUNTER → 2023-09-07 10:45 | Outpatient (BNVA) | payer MEDICAID, SELFPAY ==
[2022-03-06 16:00] VITALS: BP 125/80; BMI 27.2
== END ==
PROVIDERS: PCP Family Medicine Adult Medicine; Visit Provider Specialist
DX: M19.012 Primary osteoarthritis, left shoulder (principal); M75.102 Unspecified rotator cuff tear or rupture of left shoulder, not specified as traumatic; Z71.89 Other specified counseling
CPT/HCPCS: 20610; J1100; J2795; J3301

== ENCOUNTER → 2023-10-19 15:32 | Outpatient (BNVA) | payer MEDICAID, SELFPAY ==
[2022-03-06 16:00] VITALS: BP 125/80; BMI 27.2
== END ==
PROVIDERS: PCP Family Medicine Adult Medicine; Visit Provider Nurse Practitioner
DX: R05.9 Cough, unspecified (principal)
CPT/HCPCS: 87426

== ENCOUNTER → 2023-12-14 11:06 | Outpatient (BNVA) | payer MEDICAID, SELFPAY ==
[2022-03-06 16:00] VITALS: BP 125/80; BMI 27.2
== END ==
PROVIDERS: Visit Provider Specialist
DX: M75.102 Unspecified rotator cuff tear or rupture of left shoulder, not specified as traumatic (principal); M12.812 Other specific arthropathies, not elsewhere classified, left shoulder; Z71.89 Other specified counseling
CPT/HCPCS: 20610; J1100; J2795; J3301

== ENCOUNTER → 2024-02-01 08:47 | Outpatient (BNVA) | payer MEDICAID, SELFPAY ==
[2022-03-06 16:00] VITALS: BP 125/80; BMI 27.2
== END ==
PROVIDERS: Visit Provider Emergency Medicine
DX: R39.9 Unspecified symptoms and signs involving the genitourinary system (principal); J00 Acute nasopharyngitis [common cold]; U07.1 COVID-19; R10.9 Unspecified abdominal pain
CPT/HCPCS: 81000

== ENCOUNTER → 2024-02-25 11:26 | Outpatient (BNVA) | payer MEDICAID, SELFPAY ==
[2022-03-06 16:00] VITALS: BP 125/80; BMI 27.2
== END ==
DX: E78.5 Hyperlipidemia, unspecified (principal)
CPT/HCPCS: 80053; 80061; 85025

== ENCOUNTER → 2024-03-11 13:03 | Outpatient (BNVA) | payer MEDICAID, SELFPAY ==
[2024-02-26 13:37] VITALS: BP 118/78; BMI 32.9
== END ==
PROVIDERS: Visit Provider Orthopaedic Surgery
DX: M54.2 Cervicalgia (principal); G89.29 Other chronic pain
CPT/HCPCS: 72050; 72110; 99214

== ENCOUNTER 2024-03-18 12:41 | Outpatient (CLI) | payer MEDICAID, SELFPAY ==
[2024-02-26 13:37] VITALS: BP 118/78; BMI 32.9
--- NOTE | 2024-03-18 13:00 | MR_ITS ---
WS: [id number] MRI CERVICAL SPINE NONCONTRAST TECHNIQUE: Sagittal T1, T2 and STIR imaging. Axial T2, gradient, and fiesta imaging. CLINICAL INFORMATION: Neck Pain COMPARISON: 05/18/2023 FINDINGS: Straightening of the normal cervical lordosis. Cord signal is normal. No high- grade central canal narrowing. C2-C3: Normal. C3-C4: Normal. C4-C5: Mild facet arthropathy. Spinal canal and foramen are patent. C5-C6: Mild endplate ridging. Mild LEFT greater than RIGHT bony foraminal narrowing. Spinal canal is patent. C6-C7: Mild endplate ridging. Spinal canal and foramina are patent. C7-T1: Slight anterolisthesis C7 on T1. Spinal canal and foramen are patent. Visualized brain stem structures: Normal. Prevertebral soft tissues: Normal. Small RIGHT thyroid nodule measuring 6 mm. MR/MR cervical spin wo con* [id number] IMPRESSION: 1. Straightening the normal cervical lordosis. Cord signal is normal. 2. No high-grade spinal canal or foraminal narrowing. 3. Minimal disc bulging with endplate ridging C4-C5 and C5-C6 without signific ant spinal canal narrowing. 4. Mild LEFT foraminal narrowing C5-C6. 5. No other acute findings.
--- NOTE | 2024-03-18 16:00 | MR_ITS ---
WS: [id number] MRI LUMBAR SPINE NONCONTRAST TECHNIQUE: Sagittal T1, T2 and STIR imaging. Axial T1 and T2 imaging. CLINICAL INFORMATION: Back Pain COMPARISON: MRI 11/06/2022 FINDINGS: Mild lumbar curve. No acute compression. Slight anterolisthesis L3 on L4 and L4 on L5. L1-L2: Mild facet arthropathy. Spinal canal and foramen are patent. L2-L3: Mild annular bulging. Mild facet arthropathy. Spinal canal and foramen are patent. L3-L4: Slight anterolisthesis. Mild annular bulging. Tiny annular fissure. Mild LEFT foraminal narrowing with a tiny LEFT foraminal protrusion. Mild RIGHT foraminal narrowing. Mild facet arthropathy. L4-L5: Mild disc bulging with a shallow central protrusion. Small annular fissure. Moderate facet arthropathy. Slight impingement on the traversing RIGHT L5 nerve root in the subarticular recess. Foramina are patent. L5-S1: L5 is sacralized. Mild facet arthropathy. Spinal canal and foramen are patent. Visualized pelvic bony structures: Normal. Paravertebral soft tissues: Normal. MR/MR lumbar spine wo con* [id number] IMPRESSION: 1. L5 is sacralized. Slight anterolisthesis L3 on L4 and L4 on L5. 2. Shallow central protrusion L4-5 with a small annular fissure. Slight imping ement on the RIGHT greater than LEFT subarticular recess at this level similar to previous. 3. Small bilateral foraminal protrusions L3-4 with slight contact of the exiti ng L3 nerve roots progressed on the LEFT today. 4. Mild to moderate facet arthropathy L3-L4 and L4-L5.
== END 2024-03-18 12:42 | disposition home or self-care (01) ==
PROVIDERS: Visit Provider Orthopaedic Surgery
DX: M48.061 Spinal stenosis, lumbar region without neurogenic claudication (principal); M43.27 Fusion of spine, lumbosacral region; R93.7 Abnormal findings on diagnostic imaging of other parts of musculoskeletal system; M51.26 Other intervertebral disc displacement, lumbar region; M47.896 Other spondylosis, lumbar region; M43.8X6 Other specified deforming dorsopathies, lumbar region; M51.369 Other intervertebral disc degeneration, lumbar region without mention of lumbar back pain or lower extremity pain; M47.897 Other spondylosis, lumbosacral region; M47.892 Other spondylosis, cervical region; M50.321 Other cervical disc degeneration at C4-C5 level; M48.02 Spinal stenosis, cervical region; E04.1 Nontoxic single thyroid nodule
CPT/HCPCS: 72141; 72148

== ENCOUNTER → 2024-03-25 14:28 | Outpatient (BNVA) | payer MEDICAID, SELFPAY ==
[2024-02-26 13:37] VITALS: BP 118/78; BMI 32.9
== END ==
PROVIDERS: Visit Provider Orthopaedic Surgery
DX: Z01.818 Encounter for other preprocedural examination (principal); M48.062 Spinal stenosis, lumbar region with neurogenic claudication
CPT/HCPCS: 36415; 80053; 81001; 85025; 99214

== ENCOUNTER → 2024-04-11 07:54 | Outpatient (BNVA) | payer MEDICAID, SELFPAY ==
[2024-02-26 13:37] VITALS: BP 118/78; BMI 32.9
== END ==
PROVIDERS: Visit Provider Specialist
DX: M19.012 Primary osteoarthritis, left shoulder (principal)
CPT/HCPCS: 20610; J1100; J2795; J3301

== ENCOUNTER 2024-05-02 07:08 | Day surgery (SDC) | payer MEDICAID, SELFPAY ==
[2024-02-26 13:37] VITALS: BP 118/78; BMI 32.9
[2024-05-02] VITALS (14 sets, daily range): BP systolic 90–144; BP diastolic 61–75; PULSE 57–66; RESP 11–19; TEMP 36.1–36.3; O2SAT 92–99
[2024-05-02] MEDS: sodium chloride 0.9% 1,000 ML 30 ML IV (07:30)
--- NOTE | 2024-05-02 07:43 | P.HP_ITS ---
Same Day Surgery H&P Indication for Procedure/HPI DATE OF PROCEDURE: May 02, 2024 CHIEF COMPLAINT/INDICATIONFOR SURGICAL PROCEDURE: Back and left leg pain PREOP DIAGNOSIS: Lumbar stenosis with neurogenic claudication PLANNED PROCEDURE: Operation Date: 05/02/24 08:45 Proposed Procedures p Lumbar Spine Decompression(Not Applicable) - Harvinder Foster DO Medications/Allergies* Home Medications ?Medication ?Instructions ?Recorded ?Confirmed ?Type acetaminophen 500 mg tablet 1,000 mg PO Q6H PRN Pain 0 04/27/23 04/30/24 History hydrocodone 5 mg-acetaminophen 325 0.5 tab PO .q 4-6 h ours PRN Pain 12/05/23 04/30/24 History mg tablet Allergies/Adverse Reactions Allergy/AdvReac Type Severity Reaction Status Date / Time morphine Allergy Mild ADR-Vomitin Verified 04/11/24 08:26 g Current Medications: Generic Name Dose Route Start Last Admin Trade Name Freq PRN Reason Stop Dose Admin Sodium Chloride 1,000 mls @ 30 mls/hr 05/02/24 07:15 05/02/24 07:30 Sodium Chloride 0.9% IV 05/03/24 07:14 30 mls/hr .Q24H TENZIN Administration Pertinent History/Comorbid Conditions* Medical History (Updated 03/25/24 @ 16:51 by Harvinder Foster DO) Major depressive disorder, recurrent episode with anxious distress Chronic neck pain TMJ (temporomandibular joint syndrome) Bereavement Sudden loss of 29 yr old daughter 12/31/20 Insomnia Psychiatric care Generalized anxiety disorder Lung nodule Left lower lobe - 7mm - repeat in 07/01 Constipation GERD (gastroesophageal reflux disease) Surgical History (Updated 02/25/24 @ 11:37 by Selin Nelson NP) History of dilation and curettage (~07/20/20) 07/20/2020: Hysteroscopy, dilation and curettage with myosure at [place], [place] by Dr. Finnegan. H/O esophagogastroduodenoscopy (11/27/19) mild gastritis. H/O colonoscopy 03/14/2016 Repeat in 10 years Family History (Updated 04/15/21 @ 14:43 by Carissa Carey LPC) Major depressive disorder, recurrent episode, moderate with anxious distress Cancer Mother Lung cancer Denies family history of Diabetes Ovarian cyst CAD (coronary artery disease) Clotting disorder Hyperlipidemia Chronic kidney disease (CKD) Anesthesia complication Bleeding disorder Hypertension Thyroid disease Stroke Social History Smoking and tobacco/nicotine status: former use of tobacco/nicotine Quit status (tobacco/nicotine): has quit using Year quit tobacco: 2021 Second hand smoke exposure: Yes Alcohol intake: former Year of sobriety/quit date alcohol: 2020 Substance/Drug Use: never Adopted: No Caregiver/support person: No Lives independently: Yes Household members: children Housing: Apartment Marital status: / Marital status details: Has been a for 5 years Number of children: 3 Number of grandchildren: 13 Highest education level completed: High School Graduate service: No Current occupational status: disabled Current occupation: trying to get disability Current occupational exposures/hazards: No Pets and animals: Yes Pets & animals: cat(s) Leisure activites: games and other Leisure activities details: Watch movies Sexually active: Yes Do you think of yourself as: Straight/Heterosexual Current gender identity: Female Michelle/Zoroastrian: None Special michelle needs: No Pertinent Exam Findings alert, oriented x 3 and procedure specific exam findings Recommendations Surgery/Procedure today Coding Level of Care Code Acute Code for Chg Fwd
[2024-05-02] MEDS: ceFAZolin 2,000 mg SDV 2000 MG IVP (08:11)
--- NOTE | 2024-05-02 08:13 | ANES.PREANE2 ---
Pre-Anesthetic Assessment Height/Weight: Height 4 ft 9 in Weight 153 lb Temp Pulse Resp BP Pulse Ox O2 Del Method 97.3 F L 66 16 144/75 99 Room Air 05/02/24 07:17 05/02/24 07:17 05/02/24 07:17 05/02/24 07:17 05/02/24 07:17 05/02/24 07:19 Preop Diagnosis: Lumbar stenosis with neurogenic claudication Operation Date: 05/02/24 08:45 Proposed Procedures p Lumbar Spine Decompression(Not Applicable) - Harvinder Foster, DO Was Beta Ella taken within 24 hours: N/A Was Clonidine taken within 24 hours: N/A Last intake: Intake Last Liquid Date 05/01/24 Last Liquid Time 19:00 Last Solid Date 05/01/24 Last Solid Time 19:00 Social No alcohol and No tobacco Exam alert, oriented x 3, clear to auscultation bilaterally and regular rate & rhythm Airway Submandibular: within normal limits Cervical ROM: within normal limits Mallampati: Class I Comments: Comments: Edentulous Anesthetic Plan ASA status: 2 Anesthesia: General Other: No prior issues with anesthesia NPO since yesterday evening History of GERD, controlled with Protonix Prior TMJ Denies any pulmonary or cardiac issues Labs reviewed from March and acceptable for procedure today EKG sinus rhythm Plan for GETA Medications/Allergies Home Medications ?Medication ?Instructions ?Recorded ?Confirmed ?Last Taken ?Type polyethylene glycol 3350 17 17 g PO DAILY #510 grams 03/31/23 04/30/24 05/01/24 Rx gram/dose oral powder (Miralax) acetaminophen 500 mg tablet 1,000 mg PO Q6H PRN Pain 04/27/23 04/30/24 05/01/24 History hydrocodone 5 mg-acetaminophen 325 0.5 tab PO .q 4-6 hours PRN Pain 12/05/23 04/30/24 05/01/24 History mg tablet atorvastatin 40 mg tablet 40 mg PO BEDTIME #90 tabs 02/25/24 04/30/24 05/01/24 Rx lactulose 10 gram/15 mL oral 15 ml PO DAILY PRN constipation 02/25/24 04/30/24 05/01/24 Rx solution #473 mL linaclotide 72 mcg capsule 72 mcg PO QAM #90 caps 02/25/24 04/30/24 05/01/24 Rx (Linzess) pantoprazole 40 mg tablet,delayed 40 mg PO BID #180 tabs 02/25/24 04/30/24 05/01/24 Rx release trazodone 50 mg tablet 50 mg PO BEDTIME #15 tabs 03/04/24 04/30/24 05/01/24 Rx fluticasone propionate 50 1 spray intranasal BID PRN nasal 03/27/24 04/30/24 05/01/24 Rx mcg/actuation nasal congestion #16 grams spray,suspension (Flonase Allergy Relief) Allergies Allergy/AdvReac Type Severity Reaction Status Date / Time morphine Allergy Mild ADR-Vomitin Verified 04/11/24 08:26 g Current Medications Generic Name Dose Route Start Last Admin Trade Name Freq PRN Reason Stop Dose Admin Sodium Chloride 1,000 mls @ 30 mls/hr 05/02/24 07:15 05/02/24 07:30 Sodium Chloride 0.9% IV 05/03/24 07:14 30 mls/hr .Q24H TENZIN Administration PFSH Anesthesia Medical History Major depressive disorder, recurrent episode with anxious distress Chronic neck pain TMJ (temporomandibular joint syndrome) Bereavement Sudden loss of 29 yr old daughter 12/31/20 Insomnia Psychiatric care Generalized anxiety disorder Lung nodule Left lower lobe - 7mm - repeat in 07/01 Constipation GERD (gastroesophageal reflux disease) Surgical History History of dilation and curettage (~07/20/20) 07/20/2020: Hysteroscopy, dilation and curettage with myosure at [place], [place] by Dr. Finnegan. H/O esophagogastroduodenoscopy (11/27/19) mild gastritis. H/O colonoscopy 03/14/2016 Repeat in 10 years Family History Mother Cancer Lung cancer Other Major depressive disorder, recurrent episode, moderate with anxious distress Denies family history of Diabetes Ovarian cyst CAD (coronary artery disease) Clotting disorder Hyperlipidemia Chronic kidney disease (CKD) Anesthesia complication Bleeding disorder Hypertension Thyroid disease Stroke Social History Smoking and tobacco/nicotine status: former use of tobacco/nicotine Quit status (tobacco/nicotine): has quit using Year quit tobacco: 2021 Second hand smoke exposure: Yes Alcohol intake: former Year of sobriety/quit date alcohol: 2020 Substance/Drug Use: never Adopted: No Caregiver/support person: No Lives independently: Yes Household members: children Housing: Apartment Marital status: / Marital status details: Has been a for 5 years Number of children: 3 Number of grandchildren: 13 Highest education level completed: High School Graduate service: No Current occupational status: disabled Current occupation: trying to get disability Current occupational exposures/hazards: No Pets and animals: Yes Pets & animals: cat(s) Leisure activites: games and other Leisure activities details: Watch movies Sexually active: Yes Do you think of yourself as: Straight/Heterosexual Current gender identity: Female Michelle/Moravian: None Special michelle needs: No Female Reproductive History Para: 3 Spontaneous abortions: No Data Anesthesia Cardiac Studies: No Data to Display
[2024-05-02] MEDS: lidocaine-epi 1% 20 mL INJ INJECTION (08:49)
[2024-05-02] MEDS: fentaNYL 50 mcg/mL INJ 2mL IVP (09:35)
--- NOTE | 2024-05-02 09:35 | PM.OP ---
Operative Report Date of procedure: May 02, 2024 Pre-op diagnosis: Lumbar stenosis with neurogenic claudication Post-op diagnosis: same Procedure done: 1. L3-4 laminectomy with partial facetectomy 2. L4-5 laminectomy with partial facetectomy Surgeon: Harvinder Foster DO Estimated blood loss (mL): 15 Procedure: 1. L3-4 laminectomy with partial facetectomy 2. L4-5 laminectomy with partial facetectomy Patient is brought to the operative suite. After undergoing anesthesia they are placed in the prone position. All areas of impingement are well padded. Patient is then prepped and draped in the normal sterile fashion. A skin incision is made over the L3/4 level. This is confirmed under c-arm guidance. A series of dilators are passed and the tubular retractor is docked on the L3 lamina. A bovie is used to clear the soft tissue off the lamina and the L 3/4 facet joint. A high speed milena is then used to perform the laminectomy and take down the medial aspect of the L 3/4 facet joint. A kerrison rongeure was then used to take down the remaining lamina and smooth the edge of the laminectomy up to the point where the ligamentum flavum attaches. Attention was then brought to the medial aspect of the facet joint. The remaining medial aspect of the superior and inferior aspect of the facet joint were taken down with the kerrison from the pedicle of L3 to L 4. The facet joint had significant hypertrophy. Attention was then brought to the Ligamentum Flavum. The ligament was taken down from the lamina of L3 to L4 and out medially to the remaining facet joint. The ligament was thick. The dura was then exposed. The dura was in good repair. The L3 nerve was then traced with a curette out the L3/4 foramen and found to be adequately decompressed. The L4 nerve was traced with a curette around the L4 pedicle. The lateral recess was opened with a kerrison helping to further decompress the L4 nerve. Wound is then irrigated copiously with saline and surgiflo is used to stop any bleeding. The tubular retractor is removed A skin incision is made over the L4/5 level. This is confirmed under c-arm guidance. A series of dilators are passed and the tubular retractor is docked on the L4 lamina. A bovie is used to clear the soft tissue off the lamina and the L 4/5 facet joint. A high speed milena is then used to perform the laminectomy and take down the medial aspect of the L 4/5 facet joint. A kerrison rongeure was then used to take down the remaining lamina and smooth the edge of the laminectomy up to the point where the ligamentum flavum attaches. Attention was then brought to the medial aspect of the facet joint. The remaining medial aspect of the superior and inferior aspect of the facet joint were taken down with the kerrison from the pedicle of L4 to L 5. The facet joint had significant hypertrophy. Attention was then brought to the Ligamentum Flavum. The ligament was taken down from the lamina of L4 to L5 and out medially to the remaining facet joint. The ligament was thick. The dura was then exposed. The dura was in good repair. The L4 nerve was then traced with a curette out the L4/5 foramen and found to be adequately decompressed. The L5 nerve was traced with a curette around the L5 pedicle. The lateral recess was opened with a kerrison helping to further decompress the L5 nerve. Wound is then irrigated copiously with saline and surgiflo is used to stop any bleeding. The tubular retractor is removed and the wound is closed with vicryl and monocryl suture. Glue is then used to protect the wound. A sterile dressing is then placed. Patient was then placed in the supine position and transferred to the PACU in stable condition.
--- NOTE | 2024-05-02 09:40 | XR_ITS ---
WS: [id number] Lumbar spine, C-arm fluoroscopy views, 05/02/2024 Clinical Data: or pic, decompression Comparison: Lumbar spine, 03/11/2024 Findings: Dr. Foster performed a lumbar decompression XR/XR lumbar spine 1V [id number] Impression: Lumbar decompression.
[2024-05-02] MEDS: ondansetron 2 mg/ML SDV 2 mL 4 MG IVP (10:02)
[2024-05-02] MEDS: HYDROcodone-acetaminophen 5-325 mg Tablet 1 TAB PO (10:26)
--- NOTE | 2024-05-02 11:21 | ANE.PACU2 ---
Inpatient post-anesthesia follow up: Airway intact: Yes Vital signs: Temperature 97.2 F Pulse Rate 60 Respiratory Rate 16 Blood Pressure 120/70 Pulse Oximetry 94 Oxygen Delivery Me thod Room Air Oxygen Flow Rate 8 Fraction of Inspir ed Oxygen Hydration adequate: Yes Nausea and vomiting: No Pain level: 1 Mental status: Baseline
== END 2024-05-02 11:23 | disposition home or self-care (01) ==
PROVIDERS: Visit Provider Orthopaedic Surgery
PROC: (CPT 63005; principal; 2024-05-02 08:35)
DX: M48.062 Spinal stenosis, lumbar region with neurogenic claudication (principal); K21.9 Gastro-esophageal reflux disease without esophagitis; Z87.891 Personal history of nicotine dependence
CPT/HCPCS: 63047; 63048; 72020; 76000; J0131; J0690; J2250; J2405; J2704; J3010; J3490; J7030; J9999

== ENCOUNTER → 2024-05-06 10:02 | Outpatient (BNVA) | payer MEDICAID, SELFPAY ==
[2024-02-26 13:37] VITALS: BP 118/78; BMI 32.9
== END ==
PROVIDERS: Visit Provider Orthopaedic Surgery
DX: Z98.890 Other specified postprocedural states (principal)
CPT/HCPCS: 99024

== ENCOUNTER → 2024-05-15 07:52 | Outpatient (BNVA) | payer MEDICAID, SELFPAY ==
[2024-02-26 13:37] VITALS: BP 118/78; BMI 32.9
== END ==
PROVIDERS: Visit Provider Orthopaedic Surgery
DX: Z98.890 Other specified postprocedural states (principal)
CPT/HCPCS: 99024

== ENCOUNTER → 2024-05-21 10:50 | Outpatient (BNVA) | payer MEDICAID, SELFPAY ==
[2024-02-26 13:37] VITALS: BP 118/78; BMI 32.9
== END ==
PROVIDERS: Visit Provider Specialist
DX: M75.102 Unspecified rotator cuff tear or rupture of left shoulder, not specified as traumatic (principal); M19.012 Primary osteoarthritis, left shoulder
CPT/HCPCS: 73030; 99214

== ENCOUNTER → 2024-06-12 08:09 | Outpatient (BNVA) | payer MEDICAID, SELFPAY ==
[2024-02-26 13:37] VITALS: BP 118/78; BMI 32.9
== END ==
PROVIDERS: Visit Provider Orthopaedic Surgery
DX: Z98.890 Other specified postprocedural states (principal)
CPT/HCPCS: 99024

== ENCOUNTER 2024-07-14 08:48 | Outpatient (CLI) | payer MEDICAID, SELFPAY ==
[2024-02-26 13:37] VITALS: BP 118/78; BMI 32.9
--- NOTE | 2024-07-14 08:51 | MM_ITS ---
WS: [id number] BILATERAL SCREENING DIGITAL TOMOSYNTHESIS MAMMOGRAM WITH CAD HISTORY: SCREENING COMPARISON: 07/13/2023, 07/11/2022 and 06/16/2021 Bilateral CC and MLO views with tomosynthesis and synthetic mammography submitted. Computer aided detection analyzed. Breast composition: There are scattered areas of fibroglandular density. No suspicious masses, microcalcifications or architectural distortion. MM/MM scr BI tomosynthesis [id number] IMPRESSION: BI-RADS: 1 - Negative. FOLLOW UP: 1 Year Follow-up
== END 2024-07-14 08:49 | disposition home or self-care (01) ==
LOC: RAD 08:49
PROVIDERS: Visit Provider Nurse Practitioner Family
DX: Z12.31 Encounter for screening mammogram for malignant neoplasm of breast (principal); R92.323 Mammographic fibroglandular density, bilateral breasts
CPT/HCPCS: 77063; 77067

== ENCOUNTER → 2024-07-24 08:24 | Outpatient (BNVA) | payer MEDICAID, SELFPAY ==
[2024-02-26 13:37] VITALS: BP 118/78; BMI 32.9
== END ==
PROVIDERS: Visit Provider Orthopaedic Surgery
DX: Z98.890 Other specified postprocedural states (principal)
CPT/HCPCS: 99024

== ENCOUNTER → 2024-08-22 09:20 | Outpatient (BNVA) | payer MEDICAID, SELFPAY ==
[2024-02-26 13:37] VITALS: BP 118/78; BMI 32.9
== END ==
DX: E78.5 Hyperlipidemia, unspecified (principal); M17.12 Unilateral primary osteoarthritis, left knee
CPT/HCPCS: 80053; 80061; 85651

== ENCOUNTER → 2024-08-25 13:07 | Outpatient (BNVA) | payer MEDICAID, SELFPAY ==
[2024-02-26 13:37] VITALS: BP 118/78; BMI 32.9
== END ==
DX: M17.12 Unilateral primary osteoarthritis, left knee (principal)
CPT/HCPCS: 86160; 86162; 86235; 86255; 86376

== ENCOUNTER → 2024-09-23 07:43 | Outpatient (BNVA) | payer MEDICAID, SELFPAY ==
[2024-02-26 13:37] VITALS: BP 118/78; BMI 32.9
== END ==
PROVIDERS: Visit Provider Orthopaedic Surgery
DX: M75.102 Unspecified rotator cuff tear or rupture of left shoulder, not specified as traumatic (principal); M12.812 Other specific arthropathies, not elsewhere classified, left shoulder
CPT/HCPCS: 73030; 99214

== ENCOUNTER 2024-09-23 10:21 | Outpatient (CLI) | payer MEDICAID, SELFPAY ==
[2024-02-26 13:37] VITALS: BP 118/78; BMI 32.9
[2024-09-23 12:14] LABS: Hematocrit 43.0 % (36-47); Hemoglobin 14.40 g/dL (11.27-16.99); Mean Corpuscular HGB Conc 33.5 g/dL (30-55); Mean Corpuscular Hemoglobin 30.9 pg (27-33); Mean Corpuscular Volume 92.3 fl (85-98); Nucleated Red Blood Cells % 0 %; Platelet Count 245 10^3/cmm (157-399); Red Blood Count 4.66 10^6/uL (3.85-5.65); White Blood Count 6.03 10^3/uL (3.29-11.43)
[2024-09-23 12:15] LABS: Glucose Urine UA Negative (Normal); Nitrate Urine Negative (Negative); Specific Gravity, Urine 1.022 (1.005-1.030)
[2024-09-23 12:17] LABS: Add Urine Microscopic? YES
[2024-09-23 12:32] LABS: Alanine Aminotransferase 19 U/L (0-33); Albumin Level 4.4 g/dL (3.5-5.2); Alkaline Phosphatase 91 U/L (35-105); Anion Gap 14.5 (5-19); Aspartate Amino Transferase 23 U/L (0-32); Blood Urea Nitrogen 8 mg/dL (6-20); Calcium 9.2 mg/dL (8.5-10.5); Carbon Dioxide 26 mmol/L (22-29); Chloride 104 mmol/L (98-107); Globulin 2.6 g/dL (1.3-4.6); Glucose 90 mg/dL (65-115); Osmolality Calculated 290 mOsm/kg (285-295); Potassium 3.5 mmol/L (3.5-5.1); Sodium 141 mmol/L (136-145); Total Protein 7.0 g/dL (6.6-8.7)
== END 2024-09-23 10:22 | disposition home or self-care (01) ==
LOC: LAB 10:28
PROVIDERS: Visit Provider Orthopaedic Surgery
DX: Z01.818 Encounter for other preprocedural examination (principal); M48.062 Spinal stenosis, lumbar region with neurogenic claudication; M54.2 Cervicalgia; G89.29 Other chronic pain
CPT/HCPCS: 36415; 80053; 81001; 85025; 99213

== ENCOUNTER 2024-11-05 07:23 | Outpatient (CLI) | payer MEDICAID, SELFPAY ==
[2024-02-26 13:37] VITALS: BP 118/78; BMI 32.9
--- NOTE | 2024-11-05 07:32 | XR_ITS ---
WS: [id number] Exam: XR lumbar spine 2-3V* [id number] Date/Time of Exam: 11/05/2024 7:35 AM Reason For Exam: LUMBOSACRAL RADICULOPATHY DLP: Comparison 03/11/2024. No acute fracture. Minimal degenerative anterolisthesis of L4 3 on L4. Facet arthropathy from L3-S1. Degenerative disc narrowing at L5-S1. Batwing RIGHT transverse process at L5. SI joint DJD. XR/XR lumbar spine 2-3V* [id number] IMPRESSION: 1. Degenerative changes as noted above. 2. No fracture or significant malalignment.
== END 2024-11-05 07:24 | disposition home or self-care (01) ==
PROVIDERS: Visit Provider Student in an Organized Health Care Education/Training Program
DX: M54.17 Radiculopathy, lumbosacral region (principal); Z01.818 Encounter for other preprocedural examination; M47.817 Spondylosis without myelopathy or radiculopathy, lumbosacral region; M51.379 Other intervertebral disc degeneration, lumbosacral region without mention of lumbar back pain or lower extremity pain
CPT/HCPCS: 72100; 80053; 81003; 85007; 85027

== ENCOUNTER 2024-11-26 07:13 | Day surgery (SDC) | payer MEDICAID, SELFPAY ==
[2024-02-26 13:37] VITALS: BP 118/78; BMI 32.9
[2024-11-26] VITALS (10 sets, daily range): BP systolic 100–148; BP diastolic 66–78; PULSE 60–71; RESP 16–18; TEMP 36.2–36.6; O2SAT 93–99; BMI 32.5
--- NOTE | 2024-11-26 08:09 | ANES.PREANE2 ---
Pre-Anesthetic Assessment Height/Weight: Height 1.47 m Weight 70.76 kg Temp Pulse Resp BP Pulse Ox O2 Del Method 97.8 F 64 18 148/71 99 Room Air 11/26/24 07:39 11/26/24 07:39 11/26/24 07:39 11/26/24 07:39 11/26/24 07:39 11/26/24 07:42 Operation Date: 11/26/24 09:00 Proposed Procedures p LEFT Shoulder Arthroscopy(Left) - Adarsh Madsen MD s Rotator Cuff Repair - Open Rotator Cuff Repair Shoulder(Left) - Adarsh Madsen MD Familial anesthetic complications: None Was Beta Ella taken within 24 hours: N/A Was Clonidine taken within 24 hours: N/A Last intake: Intake Last Liquid Date 11/25/24 Last Liquid Time 20:00 Last Solid Date 11/25/24 Last Solid Time 20:00 Social Tobacco and No alcohol Exam alert, oriented x 3, clear to auscultation bilaterally and regular rate & rhythm Airway Mallampati: Class II Comments: Comments: TMJ GI Gastroesophageal Reflux Disease Anesthetic Plan ASA status: 2 Anesthesia: General Risk of > 500 ml blood loss (7ml/kg in children): No Medications/Allergies Home Medications ?Medication ?Instructions ?Recorded ?Confirmed ?Last Taken ?Type hydrocodone 5 mg-acetaminophen 325 1 - 2 tab PO .Q4-6H #40 tabs 05/02/24 11/25/24 11/22/24 Rx mg tablet lactulose 10 gram/15 mL oral 15 ml PO DAILY PRN constipation 08/22/24 11/25/24 11/25/24 Rx solution #473 mL linaclotide 72 mcg capsule 72 mcg PO QAM #90 caps 08/22/24 11/25/24 11/25/24 Rx (Linzess) pantoprazole 40 mg tablet,delayed 40 mg PO QAM #90 tabs 08/22/24 11/25/24 11/26/24 Rx release polyethylene glycol 3350 17 17 g PO DAILY #510 grams 08/22/24 11/25/24 Unknown Rx gram/dose oral powder (Miralax) quetiapine 25 mg tablet (Seroquel) 25 mg PO BEDTIME PRN anxiety #30 10/30/24 11/25/24 11/23/24 Rx tabs atorvastatin 40 mg tablet 40 mg PO DIRECTED 11/25/24 11/25/24 11/25/24 History Allergies Allergy/AdvReac Type Severity Reaction Status Date / Time morphine Allergy Mild ADR-Vomitin Verified 11/05/24 10:07 g [facility] Anesthesia Medical History Major depressive disorder, recurrent episode with anxious distress Chronic neck pain TMJ (temporomandibular joint syndrome) Bereavement Sudden loss of 29 yr old daughter 12/31/20 Insomnia Psychiatric care Generalized anxiety disorder Lung nodule Left lower lobe - 7mm - repeat in 07/01 Constipation GERD (gastroesophageal reflux disease) Surgical History History of dilation and curettage (~07/20/20) 07/20/2020: Hysteroscopy, dilation and curettage with myosure at [place], [place] by Dr. Finnegan. H/O esophagogastroduodenoscopy (11/27/19) mild gastritis. H/O colonoscopy 03/14/2016 Repeat in 10 years Family History Mother Cancer Lung cancer Other Major depressive disorder, recurrent episode, moderate with anxious distress Denies family history of Diabetes Ovarian cyst CAD (coronary artery disease) Clotting disorder Hyperlipidemia Chronic kidney disease (CKD) Anesthesia complication Bleeding disorder Hypertension Thyroid disease Stroke Social History Smoking and tobacco/nicotine status: never used tobacco/nicotine Quit status (tobacco/nicotine): has quit using Year quit tobacco: 2021 Second hand smoke exposure: Yes Alcohol intake: former Year of sobriety/quit date alcohol: 2020 Substance/Drug Use: never Adopted: No Caregiver/support person: No Lives independently: Yes Household members: children Housing: Apartment Marital status: / Marital status details: Has been a for 5 years Number of children: 3 Number of grandchildren: 13 Highest education level completed: High School Graduate service: No Current occupational status: disabled Current occupation: trying to get disability Current occupational exposures/hazards: No Pets and animals: Yes Pets & animals: cat(s) Leisure activites: games and other Leisure activities details: Watch movies Sexually active: Yes Do you think of yourself as: Straight/Heterosexual Current gender identity: Female Michelle/Denominational: None Special michelle needs: No Female Reproductive History Para: 3 Spontaneous abortions: No Anesthesia Procedures Nerve Block Nerve Block 1: Main Anesthesia: general anesthesia Time Out Performed: Yes Consent: requested by attending/covering physician, from patient, from other, risks and benefits reviewed and patient agrees to proceed Nerve block location: interscalene (L) Anesthesia monitors applied: pulse oximetry, EKG, BP cuff and oxygen Nerve block position: semi sitting Anesthetic Used: ropivicaine 0.5% (20 ml) and with decadron (4 mg) Ultrasound used to: recognize landmarks, visualize and ID brachial plexus, in supraclavicular region and visualize and ID interscalene groove Nerve Stimulator Used?: No Interscalene/Femoral BLK: 2 stimuplex 22 g needle used for position and inplane approach, visualize local anesthetic spread and no vascular puncture identified Injection: neg aspiration of heme Patient Tolerated Procedure: well Complications: none
--- NOTE | 2024-11-26 08:51 | W.PM.OPSUD ---
Surgery/Procedure H&P Update DATE OF PROCEDURE: November 26, 2024 DATE H&P PERFORMED: 11/05/24 H&P UPDATE INFORMATION: I have reviewed H&P completed within last 30 days, I have examined patient prior to procedure and No changes to prior documentation CHANGES TO PREVIOUS DOCUMENTATION: Dr. Montelongo did the medical evaluation on 11/05/2024 orthopedic history and physical was done by myself 09/23/2024 PREOP DIAGNOSIS: Internal derangement left shoulder PRIMARY INDICATION FOR PROCEDURE: Internal derangement of left shoulder PLANNED PROCEDURE: Operation Date: 11/26/24 09:00 Proposed Procedures p LEFT Shoulder Arthroscopy(Left) - Adarsh Madsen MD s Rotator Cuff Repair - Open Rotator Cuff Repair Shoulder(Left) - Adarsh Madsen MD
[2024-11-26] MEDS: ceFAZolin 2,000 mg SDV 2000 MG IVP (09:04)
--- NOTE | 2024-11-26 10:27 | P.OP_ITS ---
Operative Report Date of procedure: November 26, 2024 Surgeon: Adarsh Madsen MD Procedure: Preop diagnosis: Internal derangement of the left shoulder with biceps tendon rupture Postoperative diagnosis: Torn anterior labrum left shoulder, biceps tendon rupture, rotator cuff tear, gross bursitis, acromial impingement Procedure: Diagnostic left shoulder arthroscopy with labral debridement rotator cuff debridement. Mini open acromioplasty, bursectomy, rotator cuff repair with biceps tenodesis Surgeon: Adarsh Madsen MD [employer] Supervisor: EMMA Parks'dmitry assistance was necessary for positioning the patient, assistance d uring the procedure, wound closure, placement of dressings and abduction pillow and sling Anesthesia: General With preoperative scalene block EBL: 20 cc Indications: Ashia is a 59-year-old white female presenting the orthopedic clinic with debilitating left shoulder pain. She has already gone through conservative measures with her primary care including anti-inflammatory medication, physical therapy, corticosteroid injections. She had no success with this. She had an MRI in February of this year that I reviewed demonstrating thinning or partial tearing of the supraspinatus tendon as well as a ruptured biceps tendon in her shoulder at that time. Biceps tendon was still in the bicipital groove. Therefore having failed all conservative measures patient was offered a diagnostic shoulder arthroscopy with all indicated procedures. All risk benefits treatment alternatives were discussed and she was agreeable to this at this time. Procedure: After obtaining her consent patient had preoperative skin block ministered in the preop holding area to her left upper extremity. Patient was then taken to the operating room placed the op table supine position general anesthetic administered. Once good anesthesia achieved patient placed up in the beachchair position and secured to the bed and padded out appropriately. Left arm and shoulder prepped and draped usual fashion. After surgical timeout standard posterior portals made #11 blade and camera cannulas placed through posterior shoulder in the glenohumeral joint line. Anterior working portal was also placed just inferior to the clavicle distally. Probing the area with small nerve hook redundancy and degenerative tearing of the anterior labrum was identified this debrided down to stable cartilaginous base mechanical shaver. Stump of the biceps tendon was identified the superior anterior aspect of the glenoid labrum and this too was debrided down to stable cartilage space. Articular cartilage was softened in the glenoid and on the humeral head but no true chondromalacia. Evaluation of the rotator cuff demonstrated thinning down to a single layer of the supraspinatus tendon. This is debrided with mechanical shaver also. Arthroscopy was abandoned at this time and proceeded with a mini open procedure. Longitudinal incision made off the anterior and lateral corner of the acromion. Sharp dissection taken down to subcutaneous tissue electrocautery used to hemostasis. Deltoid was removed from the acromion with electrocautery. By digital palpation is found to be very tight underneath the acromion between the re and the rotator cuff. There is grade 2 hook present. Using a microsagittal saw acromioplasty was then undertaken without any difficulties. Bone was removed with rongeur. Subsequently bursa was thickened and scarred digital palpation broke up adhesions however sharp dissection will remove the bursa that was going down to and adhering to both the undersurface of the acromion and to the rotator cuff. By palpation and visualization thinning and tearing of the supraspinatus tendon from the bicipital groove posteriorly a couple centimeters was identified. This was freshened with #15 blade cleared. Bicipital groove was opened and the stump of the biceps tendon was identified. Subsequently two 2.9 juggernaut anchors were placed equal distance from each other into the bone. In a stepwise fashion horizontal mattress sutures were used to repair the rotator cuff back down to its original insertion point. The more anterior to surgery was also captured the biceps tendon to help block it in place in the bicipital groove. These were tied down and good fixation was achieved. Shoulders washed with sterile location. Deltoid reapproximated 0 Vicryl [id number] suture. Subcutaneous was reapproximated 2-0 Vicryl interrupted sutures and skin was closed with skin nuha. Wounds are cleaned and dried with Xeroform gauze sterile gauze dressing ABD and adhesive tape. Patient was p laced in abduction pillow and sling and awakened and transferred recovery in stable condition
--- NOTE | 2024-11-26 12:30 | ANE.PACU2 ---
Inpatient post-anesthesia follow up: Airway intact: Yes Vital signs: Temperature 97.2 F Pulse Rate 65 Respiratory Rate 17 Blood Pressure 125/72 Pulse Oximetry 95 Oxygen Delivery Me thod Room Air Oxygen Flow Rate Fraction of Inspir ed Oxygen Hydration adequate: Yes Nausea and vomiting: No Pain level: 1 Mental status: Baseline
== END 2024-11-26 12:30 | disposition home or self-care (01) ==
PROVIDERS: Visit Provider Orthopaedic Surgery
PROC: (CPT 29805; principal; 2024-11-26 09:00)
PROC: (CPT 23412; 2024-11-26 09:00)
DX: M24.9 Joint derangement, unspecified (principal); S46.212A Strain of muscle, fascia and tendon of other parts of biceps, left arm, initial encounter; S43.432A Superior glenoid labrum lesion of left shoulder, initial encounter; X58.XXXA Exposure to other specified factors, initial encounter; M75.102 Unspecified rotator cuff tear or rupture of left shoulder, not specified as traumatic; M75.52 Bursitis of left shoulder; K21.9 Gastro-esophageal reflux disease without esophagitis; Z79.891 Long term (current) use of opiate analgesic; F32.9 Major depressive disorder, single episode, unspecified; F41.9 Anxiety disorder, unspecified; R91.1 Solitary pulmonary nodule; Z87.891 Personal history of nicotine dependence; E78.5 Hyperlipidemia, unspecified
CPT/HCPCS: 23412; 23130; C1713; J0690; J1100; J2250; J2405; J2704; J2795; J3010; J3490; J7030; J9999

== ENCOUNTER 2024-11-28 15:36 | Emergency (ER) | payer MEDICAID, SELFPAY ==
[2024-02-26 13:37] VITALS: BP 118/78; BMI 32.9
[2024-11-28 15:39] VITALS: BP 159/85; PULSE 73; RESP 18; TEMP 36.5; O2SAT 99
--- OUTSIDE RECORDS SUMMARY | 2024-11-28 15:48 | XMS_ITS | Clinical Summary ---
Author Organization [facility] Address [address] [place] [address] Care Team Providers Care Clinical Pharmacist Name Role Phone Unavailable Primary Care Provider Unavailabl e Medications HYDROcodone-violet taminophen (NORCO) 5-325 mg tablet take 1 tablet by mouth every 4 to 6 hours as needed 20 Tablet 10/17/2016 1:17 PM CDT 10/17/2016 Active amoxicillin (AMOXIL) 500 mg capsule TAKE 1 CAPSULE BY MOUTH 3 TIMES DAILY UNTIL GONE 28 Capsule 10/17/2016 1:17 PM CDT 10/17/2016 Active Social History Tobacco Use Types Packs/Day Years Used Date Smoking Tobacco: Never Assessed Comments Unknown Sex and Gender Information Value Date Recorded Sex Assigned at Not on file 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 Gender Identity Not on file Sexual Orientation Not on file Plan of Treatment Health Maintenance Due Date Last Done Comments DTAP/TDAP/TD VACCINES (1 - Tdap) 08/15/1986 HEPATITIS B VACCINES (1 of 3 - 19+ 3-dose series) 05/1986 HPV/Cotest (21-29) 08/15/1988 CERVICAL CANCER SCREENING 08/15/1997 HPV/Cotest (30-65) 08/15/1997 PAP SMEAR 08/15/1997 BREAST CANCER SCREENING 2007 COLORECTAL SCREENING 08/15/2012 Colorectal Cancer Screening 08/15/2012 FIT-DNA Q 3 years 08/15/2012 FIT/FOBT Q 1 year 08/15/2012 Flex Sig/CT Colonography Q 5 years 08/15/2012 ZOSTER VACCINE (1 of 2) 08/15/2017 INFLUENZA VACCINE (#1) 2024 Insurance RX INFOCROSSING Medicaid
--- OUTSIDE RECORDS SUMMARY | 2024-11-28 15:48 | XMS_ITS | Patient Health Record ---
Author Organization [facility] Address [address] [place] [address] Care Team Providers Care Account Services Associate Name Role Phone Omar PICKERING, Selin Primary Care Provider Unavail able ShannonasafNara Slater Allergies Allergen (clinical drug ingredient) Drug/Non Drug Allergy documented on EMR Reaction Allergy Type Onset Date Status morphine Morphine nausea and vomiting Drug Allergy Active Results Component Value Reference Range Flag Notes Tox Results Reviewed date:11/11/2024 01:06:47 PM Interpretation: Performing Lab: Notes/Report: Urine Confirmation Panel (in strument) - [id number] Reviewed date:11/11/2024 12:33:01 PM Interpretation: Performing Lab: Notes/Report: 6-Acetylmorphine 0 <6 ng/mL N This ling t was developed and its performance characteristics determined by [facility]. It has not been cleared or approved by the U.S. Food and Drug Administration. 7-Aminoclonazepam 0 <60 ng/mL N This te st was developed and its performance characteristics determined by [facility]. It has not been cleared or approved by the U.S. Food and Drug Administration. Alprazolam 0 <60 ng/mL N This test was developed and its performance characteristics determined by [facility]. It has not been cleared or approved by the U.S. Food and Drug Administration. Amphetamine 0 <75 ng/mL N This test was developed and its performance characteristics determined by [facility]. It has not been cleared or approved by the U.S. Food and Drug Administration. aOH-Alprazolam 0 <60 ng/mL N This test was developed and its performance characteristics determined by [facility]. It has not been cleared or approved by the U.S. Food and Drug Administration. Buprenorphine 0.0 <7.5 ng/mL N This test w as developed and its performance characteristics determined by [facility]. It has not been cleared or approved by the U.S. Food and Drug Administration. Norbuprenorphine 0.0 <37.5 ng/mL N This te st was developed and its performance characteristics determined by [facility]. It has not been cleared or approved by the U.S. Food and Drug Administration. Carisoprodol 0 <75 ng/mL N This test wa s developed and its performance characteristics determined by [facility]. It has not been cleared or approved by the U.S. Food and Drug Administration. Codeine 0 <75 ng/mL N This test was developed and its performance characteristics determined by [facility]. It has not been cleared or approved by the U.S. Food and Drug Administration. EDDP 0 <75 ng/mL N This test was developed and its performance characteristics determined by [facility]. It has not been cleared or approved by the U.S. Food and Drug Administration. Fentanyl 0 <6 ng/mL N This test was developed and its performance characteristics determined by [facility]. It has not been cleared or approved by the U.S. Food and Drug Administration. Hydrocodone 0 <75 ng/mL N This test was developed and its performance characteristics determined by [facility]. It has not been cleared or approved by the U.S. Food and Drug Administration. Hydromorphone 0 <75 ng/mL N This test w as developed and its performance characteristics determined by [facility]. It has not been cleared or approved by the U.S. Food and Drug Administration. Lorazepam 0 <60 ng/mL N This test was developed and its performance characteristics determined by [facility]. It has not been cleared or approved by the U.S. Food and Drug Administration. MDMA 0 <75 ng/mL N This test was developed and its performance characteristics determined by [facility]. It has not been cleared or approved by the U.S. Food and Drug Administration. Meperidine 0.0 <37.5 ng/mL N This test was developed and its performance characteristics determined by [facility]. It has not been cleared or approved by the U.S. Food and Drug Administration. Meprobamate 0 <75 ng/mL N This test was developed and its performance characteristics determined by [facility]. It has not been cleared or approved by the U.S. Food and Drug Administration. Methamphetamine 0 <75 ng/mL N This test was developed and its performance characteristics determined by [facility]. It has not been cleared or approved by the U.S. Food and Drug Administration. Methadone 0 <75 ng/mL N This test was developed and its performance characteristics determined by [facility]. It has not been cleared or approved by the U.S. Food and Drug Administration. Morphine 0 <75 ng/mL N This test was developed and its performance characteristics determined by [facility]. It has not been cleared or approved by the U.S. Food and Drug Administration. Nordiazepam 0 <60 ng/mL N This test was developed and its performance characteristics determined by [facility]. It has not been cleared or approved by the U.S. Food and Drug Administration. Norfentanyl 0 <6 ng/mL N This test was developed and its performance characteristics determined by [facility]. It has not been cleared or approved by the U.S. Food and Drug Administration. Normeperidine 0.0 <37.5 ng/mL N This test was developed and its performance characteristics determined by [facility]. It has not been cleared or approved by the U.S. Food and Drug Administration. O-desmethyltramadol 0 <75 ng/mL N This test was developed and its performance characteristics determined by [facility]. It has not been cleared or approved by the U.S. Food and Drug Administration. Oxazepam 0 <60 ng/mL N This test was developed and its performance characteristics determined by [facility]. It has not been cleared or approved by the U.S. Food and Drug Administration. Oxycodone 0.0 <37.5 ng/mL N This test was developed and its performance characteristics determined by [facility]. It has not been cleared or approved by the U.S. Food and Drug Administration. Oxymorphone 0 <75 ng/mL N This test was developed and its performance characteristics determined by [facility]. It has not been cleared or approved by the U.S. Food and Drug Administration. Phencyclidine 0.0 <7.5 ng/mL N This test w as developed and its performance characteristics determined by [facility]. It has not been cleared or approved by the U.S. Food and Drug Administration. Tapentadol 0.0 <37.5 ng/mL N This test was developed and its performance characteristics determined by [facility]. It has not been cleared or approved by the U.S. Food and Drug Administration. Temazepam 0 <60 ng/mL N This test was developed and its performance characteristics determined by [facility]. It has not been cleared or approved by the U.S. Food and Drug Administration. Tramadol 0 <75 ng/mL N This test was developed and its performance characteristics determined by [facility]. It has not been cleared or approved by the U.S. Food and Drug Administration. Norhydrocodone 0 <75 ng/mL N This test was developed and its performance characteristics determined by [facility]. It has not been cleared or approved by the U.S. Food and Drug Administration. Noroxycodone 0 <38 ng/mL N This test wa s developed and its performance characteristics determined by [facility]. It has not been cleared or approved by the U.S. Food and Drug Administration. Pregabalin 0 <225 ng/mL N This test was developed and its performance characteristics determined by [facility]. It has not been cleared or approved by the U.S. Food and Drug Administration. Gabapentin 0 <225 ng/mL N This test was developed and its performance characteristics determined by [facility]. It has not been cleared or approved by the U.S. Food and Drug Administration. Benzoylecgonine 0.0 <37.5 ng/mL N This ling t was developed and its performance characteristics determined by [facility]. It has not been cleared or approved by the U.S. Food and Drug Administration. 4-Hydroxy Xylazine 0 <25 ng/mL N This t est was developed and its performance characteristics determined by [facility]. It has not been cleared or approved by the U.S. Food and Drug Administration. Urine Drug Screen (cup read) - [id number] Reviewed date:11/04/2024 09:32:33 AM Interpretation: Performing Lab: Notes/Report: AMP - SHADI - BUP - BZO - MDMA - OPI - PCP - OXY - MTD - MAMP - Reason For Referral Reason osteoarthritis of le ft knee Diagnosis 1 Unilateral primary o steoarthritis` left knee (M17.12) Referring Provider First Name Selin Referring Provider Last Name Omar Referring Provider Speciality Family Med icine Referred Organization [facility] Referred Provider Monico Aly Referred Address [address],[facility],[address], Referred Provider Specialty [facility] General Notes Michelle Medina Yuri 04:56:35 PM CDT > mailing npp, scheduled pt Referral Priority Routine Medications Medication SIG (Take, Route, Frequency, Duration) Notes Start Date End Date Status Lactulose Active Atorvastatin Calcium 40 MG Tablet 1 tablet Orally Once a day Active Pantoprazole Sodium 40 MG Tablet Delayed Release 1 tablet 1/2 to 1 hour before morning meal Orally Once a day Active Linzess 72 MCG Capsule 1 capsule at leas t 30 minutes before the first meal of the day on an empty stomach Orally Once a day Active HYDROcodone-Acetaminop hen 5-325 MG Tablet 1 tablet as needed Orally every 6 hrs; Duration: 30 days As needed Not to exceed 2 per day Fill 11/04/2024 11/04/2024 12/04/2024 Active HYDROcodone-Acetaminop hen 5-325 MG Tablet 1 tablet as needed Orally every 6 hrs; Duration: 30 days As needed Not to exceed 2 per day Fill 11/04/2024 11/04/2024 01/04/2025 Active SEROquel 25 MG Tablet 1 tablet at bedtim e Orally Once a day Active Social History Tobacco Use: Social History Observation Description Date Details (start date - stop date) Never Smoker NA - NA Social History Tobacco Use: Social Info Question Answer Notes Tobacco Control (Standard) Tobacco use: Nonsmoker Additional Details Category Social Info Options Details Miscellaneous: Sexually active: no Sexual abuse: no Drugs/Alcohol: Do you smoke marijuana? De nies Do you drink alcohol? No Problems Problem Type SNOMED Code ICD Code Onset Dates Problem Status W/U Status Risk Notes Problem Chronic pain syndrome (113589237) Chronic pain syndrome (G89.4) Active confirmed Problem High risk drug monitoring status (165460229) [facility] (current) use of opiate analgesic (Z79.891) Active confirmed Problem Myalgia of auxiliary muscles, head and neck (M79.12) Active confirmed Problem Cervical radiculopathy (42640568) Cervical radiculopathy (M54.12) Active confirmed Problem Lumbosacral spondylosis without myelopathy (72466267) Spondylosis of lumbosacral region without myelopathy or radiculopathy (M47.817) Active confirmed Problem Cervical spondylosis (599128641) Cervical spondylosis (M47.812) Active confirmed Problem Myalgia (74115443) Myalgia (M79.10) Active conf irmed Problem Lumbosacral radiculopathy (2462467) Lumbosacral radiculopathy (M54.17) Active confirmed Problem Osteoarthritis of knee (806955094) Unilateral primary osteoarthritis` left knee (M17.12) Active confirmed Vital Signs Height-cm 147.32 cm 11/04/2024 Weight-kg 70.76 kg 11/04/2024 Height 58 in 11/04/2024 Weight 156 lbs 11/04/2024 BMI 32.6 kg/m2 11/04/2024 Encounters Encounter Location Date Provider Diagnosis [facility] [address] [address] 11/04/2024 Nara yost Chronic pain syndrome G89.4 ; Myalgia of auxiliary muscles, head and neck M79.12 ; [facility] (current) use of opiate analgesic Z79.891 ; Other spondylosis with radiculopathy, lumbosacral region M47.27 and Other spondylosis with radiculopathy, cervical region M47.22 Assessments Encounter Date Diagnosis (ICD Code) Assessment Notes Treatment Notes Treatment Clinical Notes Section Notes 11/04/2024 Chronic pain syndrome (ICD-10 - G89.4) She is a very pleasant patient with lumbosacral spondylosis, lumbar postlaminectomy syndrome. She is still recovering, and I suspect she has disorder of sacrum mediated pain since she has pain along bilateral PSIS. She used to have a left shoulder replacement versus rotator cuff surgery here in the next month. Will hold off on any interventional pain procedures, such as SI joint injections, up until that time when she has recovered from it because she would not be able to tolerate laying on the floor table with her arm in a sling. She is stable on her medication regimen. PDMP is reviewed with no untoward events. Will obtain UDS confirmation at today's visit since she is establishing care. 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 Nara Mae. Nara Cowart, personally performed the services described in this documentation, as scribed by Lonnie Warner, and it is both accurate and complete. RECOMMEND URINE TESTING TODAY Urine drug screening will be performed today to monitor compliance with opioid therapy or to serve as a baseline screen for a patient who may be a candidate for opioid therapy in the future, pending UDS results. We will monitor with in-office testing (rapid testing) today and review the results prior to dispensing prescription. All positive results will be sent for quantitative analysis to ensure accuracy and quantify amounts. Any expected positive results that return negative will also be sent for quantitative analysis. Any questionable read or any medication we cannot test for in the office confidently will be sent for quantitative analysis, as well. Patient has been made aware of this policy and agrees to abide by our urine testing policy. Plan Of Treatment Pending Test Test Name Order Date Lumbosacral Spine AP/Lat-[id number] Next Appt Details Provider Name:Nara Cowart Shannon Schmidt, 12/30/2024 08:00:00 AM, [address] [place], [address], Insurance Providers Payer Name Payer Address Payer Phone Subscriber Number Group Number Insured Name Patient Relationship to Insured Coverage Start Date Coverage End Date ID Medicaid [address] [place] [address] [id number] Ashia Saleh Self - patient is the insured Medical (General) History Medical History History ICD Code Depression Arthritis constipation Surgical History Surgery Date(Month/Year) laminectomy 05/02/2024
--- OUTSIDE RECORDS SUMMARY | 2024-11-28 15:48 | XMS_ITS | Clinical Summary ---
Author Organization [facility] Address [address] [facility] Attn: [place] [address] Care Team Providers Care New Client Banking Services Clerk Name Role Phone Terrell Hunt MD Primary Care Provider + Allergies Active Allergy Reactions Criticality Noted Date Comments Gabapentin Dizziness Low 10/14/2021 Morphine Nausea and Vomiting Low 10/14/2021 Medications pantoprazole (PROTONIX) 40 mg Tablet, Delayed Release (E.C.) Take 40 mg by mouth 2 times daily. Active linaCLOtide (LINZESS) 72 mcg Capsule capsule Take 72 mcg by mouth daily before breakfast. Active eszopiclone (LUNESTA) 3 mg Tablet Take 3 mg by mouth nightly as needed for Insomnia. Active lactulose (ENULOSE) 10 gram/15 mL (15 mL) Solution Take 20 Grams by mouth daily. Active tiZANidine (ZANAFLEX) 4 mg Capsule Take 4 mg by mouth 2 times daily. Active acetaminophen (TYLENOL ARTHRITIS) 650 mg Extended Release tablet Take 650 mg by mouth every 12 hours. Active atorvastatin (LIPITOR) 40 mg tablet Take 40 mg by mouth daily. 2 Active escitalopram oxalate (LEXAPRO) 20 mg tablet Take 20 mg by mouth daily in the morning. Parris [facility] 2 Active pregabalin (LYRICA) 50 mg CapsuleIndicati ons:Osteoarthri tis of spine with radiculopathy, cervical region Take 1 Capsule (50 mg) by mouth every 12 hours. Call the office in 4 weeks for dose increase if needed 60 Capsule 2 2 Active Additional Information Patient not taking.Reported on 04/23/2024 meloxicam (MOBIC) 15 mg tabletIndicatio ns:Osteoarthrit is of spine with radiculopathy, cervical region Take 1 Tablet (15 mg) by mouth daily. 30 Tablet 2 2 Active Additional Information Patient not taking.Reported on 04/23/2024 fluticasone propionate (FLONASE) 50 mcg/spray [place], Suspension nasal inhaler USE 1 SPRAY IN EACH NOSTRIL TWICE DAILY NEEDED FOR NASAL CONGESTION 5 Active HYDROcodone-violet taminophen (NORCO) 5-325 mg tablet 5 Active sertraline (ZOLOFT) 50 mg tablet Take 50 mg by mouth daily in the morning. 4 Active traZODone (DESYREL) 100 mg tablet TAKE 1/2 TO 1 (ONE-HALF TO ONE) TABLET BY MOUTH AT BEDTIME NEEDED FOR SLEEP 4 Active traZODone (DESYREL) 50 mg tablet take 1/2 tablet BY MOUTH AT BEDTIME NEEDED FOR sleep 5 Active Active Problems Problem Noted Date Diagnosed Date Chronic constipation 10/14/2021 Mixed hyperlipidemia 10/14/2021 Insomnia 10/14/2021 JOAO (generalized anxiety disorder) 10/14/2021 Gastroesophageal reflux disease without esophagi tis 10/14/2021 Encounters Date Type Department Care Team Description 10/01/2024 External Device Data [facility] ABSTRACTION Provider, Abstract 09/16/2024 External Device Data [facility] ABSTRACTION Provider, Abstract 09/16/2024 External Device Data [facility] ABSTRACTION Provider, Abstract from Last 3 Months Immunizations Immunization Administration Dates Next Due Influenza Seasonal Unspecified Formulation IM Family History Medical History Relation Name Comments Heart Disease Father Hypertension Father No Known Problems Mother Relation Name Status Comments Father Alive Mother Social History Tobacco Use Types Packs/Day Years Used Date Smoking Tobacco: Former Smokeless Tobacco: Never Tobacco Cessation:Counseling Given: No Alcohol Use Standard Drinks/Week Comments Not Currently 0 (1 standard drink = 0.6 oz pur e alcohol) Comments No Sex and Gender Information Value Date Recorded Sex Assigned at Not on file 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 Gender Identity Not on file Sexual Orientation Not on file Last Filed Vital Signs Vital Sign Reading Time Taken Comments Blood Pressure 118/86 04/23/2024 10:02 AM CDT Pulse 85 04/23/2024 10:02 AM CDT Temperature 36.6 C (97.9 F) 04/23/2024 10:02 AM CDT Respiratory Rate 20 04/23/2024 10:02 AM CDT Oxygen Saturation 97% 04/23/2024 10:02 AM CDT Inhaled Oxygen Concentration - - Weight 69.7 kg (153 lb 9.6 oz) 04/23/2024 10:02 AM CDT Height 147.3 cm (4' 10 ) 04/23/2024 10:02 AM CDT Body Mass Index 32.1 04/23/2024 10:02 AM CDT Plan of Treatment Health Maintenance Due Date Last Done Comments Pre-Diabetes and Diabetes Screening 1965 DTAP/TDAP/TD VACCINES (1 - Tdap) 08/15/1986 HEPATITIS B VACCINES (1 of 3 - 19+ 3-dose series) 08/15/1986 HPV/Cotest (21-29) 08/15/1988 CERVICAL CANCER SCREENING 08/15/1997 HPV/Cotest (30-65) 08/15/1997 PAP SMEAR 08/15/1997 COLORECTAL SCREENING 08/15/2012 Colorectal Cancer Screening 08/15/2012 FIT-DNA Q 3 years 08/15/2012 FIT/FOBT Q 1 year 08/15/2012 Flex Sig/CT Colonography Q 5 years 08/15/2012 ZOSTER VACCINE (1 of 2) 08/15/2017 INFLUENZA VACCINE (#1) 2024 10/22/2023, 2022 BREAST CANCER SCREENING 07/14/2025 07/14/2024 COVID-19 Vaccine Completed 11/21/2023, , 03/12/2020 Procedures Procedure Name Priority Date/Time Associated Diagnosis Comments MAMMO 3D [place] SCREEN BILAT W OR WO CAD Routine 07/14/2024 Screening mammogram, encounter for from Last 3 Months or Most Recently Relevant to Health Maintenance Results * MAMMO 3D [place] SCREEN BILAT W OR WO CAD (07/14/2024) Anatomical Region Laterality Modality Breast Bilateral Mammography Crystal Jacqueline Kilo COPY DIRECTOR MAMMO ORDERABLES Final R esult from Last 3 Months or Most Recently Relevant to Health Maintenance Insurance [place]ICA[place] * Guarantor: CHAGO SALEH Account Type Relation to Patient Date of Phone Billing Address Personal/Family [address] [place] [address] RX [employer] Medicaid Care Teams New Client Banking Services Clerk Relationship Specialty Start Date End Date Terrell Hunt MD [address] [facility] [address] [place] [id number] PCP - General Family Practice 07/15/24
--- OUTSIDE RECORDS SUMMARY | 2024-11-28 15:48 | XMS_ITS | Encounter Summary ---
Author Organization [facility] Address [address] [place] [address] Care Team Providers Care Dining Room Supervisor Name Role Phone Unavailable Primary Care Provider Unavailabl e Encounter Details Date Type Department Care Team (Late st Contact Info) Description 09/26/2004 Emergency [facility] Emergency Department [address] 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
--- NOTE | 2024-11-28 15:51 | XRR_ITS ---
PROCEDURE INFORMATION: Exam: XR Left Shoulder Exam date and time: 11/28/2024 4:08 PM Age: 59 years old Clinical indication: Pain; Shoulder; Left; Prior surgery; Surgery date: <1 month; Additional info: Post-op pain TECHNIQUE: Imaging protocol: Radiologic exam of the left shoulder. Views: 2 or more views. COMPARISON: CR XR shoulder LT min 2V* [id number] 09/23/2024 7:45 AM FINDINGS: Bones/joints: On the Y-view there is a discontinuation of the humeral head posteriorly suspicious for fracture. Otherwise no fractures are identified. Soft tissues: There is a high density focus in the soft tissues in the region of the supraspinatus muscle. It may represent some calcific tendinitis. Soft tissues otherwise are unremarkable. XR/XR shoulder LT min 2V* [id number] IMPRESSION: Questionable fracture of the humeral head posteriorly. This may be positional or artifactual. Clinical correlation with history and possibly repeat plain film images may be helpful for confirmation.
--- NOTE | 2024-11-28 16:20 | W.ED.GENADLT ---
HPI - General Adult General: Chief complaint: General Medical Stated complaint: Post surgery 11/26 N/V L Shoulder burning swelling Time Seen by Provider: 11/28/24 16:03 Source: patient Mode of arrival: ambulatory Limitations: no limitations History of Present Illness: Patient is a 59-year-old female who presents to the emergency department complaining of left shoulder pain status post rotator cuff repair on 11/26. States that she feels a burning sensation in her arm, had some chills last night but has not had any fevers. Notes that the pain has been so severe that she has felt sick to her stomach and has vomited a couple of times. She does not report any distal radiation pain or numbness down her left arm, has use of her hand and no coolness or pallor is reported. No radiation of pain into her neck. Her vitals are stable at this time as she is afebrile. She has been taking [place] for pain, last took 0600 this morning has not taken any since and reporting 10/10 pain at this time. No shortness of breath, chest pain, abdominal pain, or other symptoms at this time. Surgery was performed by Dr. Madsen. complaint: Postoperative pain left shoulder Onset (ago): day(s) (2) Radiation: non-radiation Severity scale (1-10): 10 Quality: burning Associated symptoms: Deny chest pain, dyspnea, headache(s), nausea, rash or vomiting Treatments prior to arrival: other (Greenport) Related Data Home Medications ?Medication ?Instructions ?Recorded ?Confirmed atorvastatin 40 mg tablet 40 mg PO DIRECTED 11/25/24 11/25/24 Previous Rx's ?Medication ?Instructions ?Recorded hydrocodone 5 mg-acetaminophen 325 1 - 2 tab PO .Q4-6H #40 tabs 05/02/24 mg tablet lactulose 10 gram/15 mL oral 15 ml PO DAILY PRN constipation 08/22/24 solution #473 mL linaclotide 72 mcg capsule 72 mcg PO QAM #90 caps 08/22/24 (Linzess) pantoprazole 40 mg tablet,delayed 40 mg PO QAM #90 tabs 08/22/24 release polyethylene glycol 3350 17 17 g PO DAILY #510 grams 08/22/24 gram/dose oral powder (Miralax) quetiapine 25 mg tablet (Seroquel) 25 mg PO BEDTIME PRN anxiety #30 10/30/24 tabs hydrocodone 5 mg-acetaminophen 325 1 tab PO Q6H #30 tabs 11/26/24 mg tablet Allergies Allergy/AdvReac Type Severity Reaction Status Date / Time morphine Allergy Mild ADR-Vomitin Verified 11/05/24 10:07 g Review of Systems General: Reports: 10 or more systems reviewed and unremarkable except in HPI and below Const: Denies: fever(s) or chills Card: Denies: chest pain Resp: Denies: dyspnea or productive cough GI: Denies: abdominal pain, nausea, vomiting or diarrhea : Denies: flank pain Musc: Reports: joint pain (left shoulder); Denies: neck pain, back pain, extremity pain, extremity swelling, joint swelling, joint redness, joint warmth, limited range of motion or muscle weakness Skin/Breast: Denies: rash Neuro: Denies: headache(s), numbness in extremities or weakness in extremities PFSH ED PFSH: Medical History Major depressive disorder, recurrent episode with anxious distress Chronic neck pain TMJ (temporomandibular joint syndrome) Bereavement Sudden loss of 29 yr old daughter 12/31/20 Insomnia Psychiatric care Generalized anxiety disorder Lung nodule Left lower lobe - 7mm - repeat in 07/01 Constipation GERD (gastroesophageal reflux disease) Surgical History History of dilation and curettage (~07/20/20) 07/20/2020: Hysteroscopy, dilation and curettage with myosure at [place], [place] by Dr. Finnegan. H/O esophagogastroduodenoscopy (11/27/19) mild gastritis. H/O colonoscopy 03/14/2016 Repeat in 10 years Family History Mother Cancer Lung cancer Other Major depressive disorder, recurrent episode, moderate with anxious distress Denies family history of Diabetes Ovarian cyst CAD (coronary artery disease) Clotting disorder Hyperlipidemia Chronic kidney disease (CKD) Anesthesia complication Bleeding disorder Hypertension Thyroid disease Stroke Social History Smoking and tobacco/nicotine status: never used tobacco/nicotine Quit status (tobacco/nicotine): has quit using Year quit tobacco: 2021 Second hand smoke exposure: Yes Alcohol intake: former Year of sobriety/quit date alcohol: 2020 Substance/Drug Use: never Adopted: No Caregiver/support person: No Lives independently: Yes Household members: children Housing: Apartment Marital status: / Marital status details: Has been a for 5 years Number of children: 3 Number of grandchildren: 13 Highest education level completed: High School Graduate service: No Current occupational status: disabled Current occupation: trying to get disability Current occupational exposures/hazards: No Pets and animals: Yes Pets & animals: cat(s) Leisure activites: games and other Leisure activities details: Watch movies Sexually active: Yes Do you think of yourself as: Straight/Heterosexual Current gender identity: Female Michelle/Hinduism: None Special michelle needs: No Female Reproductive History: Para: 3 Spontaneous abortions: No Physical Exam Const: COMMON NORMALS: no acute distress, patient oriented x3, no limitations, healthy appearing, alert and well nourished HENMT: COMMON NORMALS: normocephalic and atraumatic HEAD & SCALP: normocephalic and atraumatic Neck/C-Spine: COMMON NORMALS: full ROM, supple and no meningeal signs Resp: COMMON NORMALS: normal respiratory effort, No use of accessory muscles and clear to auscultation bilaterally AUSCULTATION: clear to auscultation bilaterally Cardio: COMMON NORMALS: regular rate and regular rhythm RATE: regular rate RHYTHM: regular rhythm Extremity: COMMON NORMALS: capillary refill normal, no joint enlargement and no clubbing, cyanosis or edema NARRATIVE EXTREMITY EXAM: Patient in shoulder immobilizer. Removal of the bandage shows no redness, fluctuance, or significant edema of the 2 arthroscopic incisions, nor to the larger incision to the superolateral shoulder. Stitches are in place, wound appears clean and well-healing. Diffuse, nonspecific tender to palpation over the shoulder. She endorses no changes in sensations distally, radial pulses palpable. Good strength in the hand and no coolness of the extremity. Range of motion not assessed secondary to her postoperative status and being in an immobilizer. Neuro: COMMON NORMALS: patient oriented x3, moves all extremities, no focal motor deficits and no sensory deficits noted SENSORIUM/ORIENTATION: Yes alert MENINGEAL SIGNS: Yes no meningeal signs Skin: COMMON NORMALS: no rashes or lesions noted GENERAL SKIN EXAM: no rashes or lesions noted Course Vital Signs: Vital signs: Vital Signs Temperature 97.7 F 11/28/24 15:39 Pulse Rate 73 11/28/24 15:39 Respiratory Rate 18 11/28/24 15:39 Blood Pressure 159/85 11/28/24 15:39 Pulse Oximetry 99 11/28/24 15:39 Oxygen Delivery Me thod Room Air 11/28/24 15:39 MDM - General Adult Medical Decision Making Patient presenting 2 days postop for left shoulder pain, had rotator cuff repair with Dr. Madsen. Has been taking [place] for pain, her last dose was at 0600 this morning, she had noted burning sensation. On exam neurovascular status is intact, the incisions do not appear concerning for any infectious etiology. Her lab work supports this, as there is no leukocytosis or elevation in CRP or ESR. X-ray showing a questionable fracture of the left posterior humeral head but I suspect this is positional related, and after speaking with Dr. Madsen he agrees. This patient notes significant relief of symptoms after IV Dilaudid here in the ED, and Zofran was given for nausea as she had noted nausea related to her pain. Ultimately stable for discharge home and she will follow-up in the office as scheduled with Dr. Rhodes. Lab Data 11/28/24 16:37 11/28/24 16:37 Radiology Impressions Shoulder X-Ray 11/28/24 15:51 IMPRESSION: Questionable fracture of the humeral head posteriorly. This may be positional or artifactual. Clinical correlation with history and possibly repeat plain film images may be helpful for confirmation. Laboratory Results WBC 7.68 10^3/uL (3.29-11.43) 11/28/24 16:37 RBC 4.35 10^6/uL (3.85-5.65) 11/28/24 16:37 Hgb 12.90 g/dL (11.27-16.99) 11/28/24 16:37 Hct 40.2 % (36-47) 11/28/24 16:37 MCV 92.4 fl (85-98) 11/28/24 16:37 MCH 29.7 pg (27-33) 11/28/24 16:37 MCHC 32.1 g/dL (30-55) 11/28/24 16:37 RDW 12.5 % (12.1-15.1) 11/28/24 16:37 Plt Count 250 10^3/cmm (157-399) 11/28/24 16:37 MPV 11.6 fL (7.4-10.4) H 11/28/24 16:37 Neut % (Auto) 49.3 % 11/28/24 16:37 Lymph % (Auto) 39.3 % 11/28/24 16:37 Randolph % (Auto) 9.2 % 11/28/24 16:37 Eos % (Auto) 1.2 % 11/28/24 16:37 Baso % (Auto) 0.7 % 11/28/24 16:37 Neut # (Auto) 3.79 10^3/uL (1.8-7.7) 11/28/24 16:37 Lymph # (Auto) 3.0 10^3/uL (0.8-4.8) 11/28/24 16:37 Randolph # (Auto) 0.7 10^3/uL (0.2-0.9) 11/28/24 16:37 Eos # (Auto) 0.1 10^3/uL (0.0-0.8) 11/28/24 16:37 Baso # (Auto) 0.1 10^3/uL (0.0-0.1) 11/28/24 16:37 Nucleated RBC % (auto) 0 % 11/28/24 16:37 Nucleated RBCs # 0.0 /100WBC 11/28/24 16:37 ESR 6 mm/hr (0-15) 11/28/24 16:37 Sodium 140 mmol/L (136-145) 11/28/24 16:37 Potassium 3.6 mmol/L (3.5-5.1) 11/28/24 16:37 Chloride 104 mmol/L (98-107) 11/28/24 16:37 Carbon Dioxide 24 mmol/L (22-29) 11/28/24 16:37 Anion Gap 15.6 (5-19) 11/28/24 16:37 BUN 11 mg/dL (6-20) 11/28/24 16:37 Creatinine 0.6 mg/dL (0.5-0.9) 11/28/24 16:37 GFR Calculation 103.0 mL/min (90-130) 11/28/24 16:37 Glucose 94 mg/dL (65-115) 11/28/24 16:37 Calculated Osmolality 289 mOsm/kg (285-295) 11/28/24 16:37 Calcium 9.0 mg/dL (8.5-10.5) 11/28/24 16:37 Total Bilirubin 0.5 mg/dL (0.15-1.2) 11/28/24 16:37 AST 21 U/L (0-32) 11/28/24 16:37 ALT 15 U/L (0-33) 11/28/24 16:37 Alkaline Phosphatase 79 U/L (35-105) 11/28/24 16:37 C-Reactive Protein 16.9 mg/L (0.0-4.9) H 11/28/24 16:37 Total Protein 6.5 g/dL (6.6-8.7) L 11/28/24 16:37 Albumin 4.0 g/dL (3.5-5.2) 11/28/24 16:37 Globulin 2.5 g/dL (1.3-4.6) 11/28/24 16:37 All radiology interpretation(s) finalized by discharge Discharge Plan Discharge Patient Disposition: Home Clinical Impression: Acute postoperative pain of left shoulder Condition: Stable Prescriptions: No Action lactulose 10 gram/15 mL solution 15 ml PO DAILY PRN (Reason: constipation) Qty: 473 2RF Linzess 72 mcg capsule 72 mcg PO QAM Qty: 90 0RF pantoprazole 40 mg tablet,delayed release (DR/EC) 40 mg PO QAM Qty: 90 1RF polyethylene glycol 3350 [Miralax] 17 gram/dose powder 17 g PO DAILY Qty: 510 0RF quetiapine [Seroquel] 25 mg tablet 25 mg PO BEDTIME PRN (Reason: anxiety) Qty: 30 3RF Rx Instructions: May take one tablet at bedtime as needed for anxiety hydrocodone-acetaminophen 5-325 mg tablet 1 - 2 tab PO .Q4-6H Qty: 40 0RF atorvastatin 40 mg tablet 40 mg PO DIRECTED hydrocodone-acetaminophen 5-325 mg tablet 1 tab PO Q6H Qty: 30 0RF Discharge Orders: Discharge ED (Routine); Ordered 11/28/24 Ordered By: Spencer Chan Referrals: Selin Nelson NP [Primary Care Provider, [facility]] Patient Instructions: Opioid Safety, Pain Management, Patient Portal & Sabrina Instructions Activity Restrictions/Additional Instructions: Rotator Cuff Repair Discharge Discharge Instructions After Rotator Cuff Repair - Wound Care: Keep the incision clean and dry. Inspect daily for redness, swelling, drainage, or increased pain. No signs of infection were noted at discharge; notify your care team if any develop. - Pain Management: Use prescribed pain medications as directed. [id number] acetaminophen or NSAIDs may be used if approved by your surgeon. Ice packs may help with discomfort. - Activity and Sling Use: For small or medium tears, you may begin gentle use of your arm for daily activities as tolerated, with or without a sling, per your surgeon?s instructions. Early mobilization is associated with better early motion and similar long-term outcomes compared to prolonged sling use. Avoid lifting, pushing, or pulling with the affected arm. - Physical Therapy: Outpatient physical therapy will be arranged. Attend all scheduled sessions and perform home exercises as instructed. Therapy typically progresses from passive to active motion over several weeks, with strengthening delayed until at least 12 weeks post-op. - Restrictions: Do not use the affected arm for overhead activities, heavy lifting, or sports until cleared by your surgeon. Driving is not recommended until you have good control and are off narcotic pain medications. - Follow-Up: Attend all scheduled follow-up appointments. Notify your provider if you experience fever, severe pain, numbness, tingling, or loss of movement in your arm. - Expected Recovery: Most patients regain daily function over several months, with maximal improvement in strength and motion by 6-12 months. Recovery may vary based on tear size and healing. - Complications: The most common complications are shoulder stiffness and infection, though these are rare. Promptly report any concerning symptoms. If you have any questions or concerns, contact your surgical team or clinic. Print Language: Icelandic Coding Level of Care Code ED Student Activities Director for James Nathan
[2024-11-28] MEDS: ondansetron 2 mg/ML SDV 2 mL 4 MG IVP (16:30)
[2024-11-28 16:47] LABS: Hematocrit 40.2 % (36-47); Hemoglobin 12.90 g/dL (11.27-16.99); Mean Corpuscular HGB Conc 32.1 g/dL (30-55); Mean Corpuscular Hemoglobin 29.7 pg (27-33); Mean Corpuscular Volume 92.4 fl (85-98); Nucleated Red Blood Cells % 0 %; Platelet Count 250 10^3/cmm (157-399); Red Blood Count 4.35 10^6/uL (3.85-5.65); White Blood Count 7.68 10^3/uL (3.29-11.43)
[2024-11-28 17:01] LABS: Alanine Aminotransferase 15 U/L (0-33); Albumin Level 4.0 g/dL (3.5-5.2); Alkaline Phosphatase 79 U/L (35-105); Anion Gap 15.6 (5-19); Aspartate Amino Transferase 21 U/L (0-32); Blood Urea Nitrogen 11 mg/dL (6-20); Calcium 9.0 mg/dL (8.5-10.5); Carbon Dioxide 24 mmol/L (22-29); Chloride 104 mmol/L (98-107); Creatinine Clr Calc Pharmacy 115.5583; Globulin 2.5 g/dL (1.3-4.6); Glucose 94 mg/dL (65-115); Osmolality Calculated 289 mOsm/kg (285-295); Potassium 3.6 mmol/L (3.5-5.1); Sodium 140 mmol/L (136-145); Total Protein 6.5 g/dL (6.6-8.7)
[2024-11-28] MEDS: HYDROmorphone 0.5 MG/0.5 ML INJ 1 MG IVP (17:04)
== END 2024-11-28 17:41 | disposition home or self-care (01) ==
PROVIDERS: Emergency Provider Physician Assistant
DX: G89.18 Other acute postprocedural pain (principal); Z87.891 Personal history of nicotine dependence; Z98.890 Other specified postprocedural states
CPT/HCPCS: 36415; 73030; 80053; 85025; 85651; 86140; 96374; 96375; 99284; J1171; J2405

== ENCOUNTER → 2024-12-09 08:41 | Outpatient (BNVA) | payer MEDICAID, SELFPAY ==
[2024-02-26 13:37] VITALS: BP 118/78; BMI 32.9
== END ==
PROVIDERS: Visit Provider Orthopaedic Surgery
DX: M75.102 Unspecified rotator cuff tear or rupture of left shoulder, not specified as traumatic (principal); M12.812 Other specific arthropathies, not elsewhere classified, left shoulder
CPT/HCPCS: 99024

== ENCOUNTER → 2024-12-23 08:10 | Outpatient (BNVA) | payer MEDICAID, SELFPAY ==
[2024-02-26 13:37] VITALS: BP 118/78; BMI 32.9
== END ==
PROVIDERS: Visit Provider Orthopaedic Surgery
DX: Z98.890 Other specified postprocedural states (principal); Z47.89 Encounter for other orthopedic aftercare; M48.062 Spinal stenosis, lumbar region with neurogenic claudication
CPT/HCPCS: 72100; 99024; 99213

== ENCOUNTER → 2024-12-25 10:14 | Outpatient (BNVA) | payer OTHER, SELFPAY ==
[2024-02-26 13:37] VITALS: BP 118/78; BMI 32.9
== END ==
PROVIDERS: Visit Provider Nurse Practitioner Psychiatric/Mental Health
DX: Z79.899 Other long term (current) drug therapy (principal)
CPT/HCPCS: 83036

== ENCOUNTER 2024-12-31 08:36 | Outpatient (CLI) | payer MEDICAID, SELFPAY ==
[2024-02-26 13:37] VITALS: BP 118/78; BMI 32.9
--- NOTE | 2024-12-31 08:45 | MR_ITS ---
WS: [id number] MRI LUMBAR SPINE NONCONTRAST HISTORY: back pain, lumbar decompression laminectomy on 05/02/2024. COMPARISON: 03/18/2024 TECHNIQUE: Sagittal and axial multisequence imaging is submitted. L4 anterolisthesis by 2.9 mm. Disc spaces are mildly narrowed. No lumbar spine fracture. Normal lumbar alignment with no compression fractures or marrow edema. Disc spaces and vertebral body heights are well-preserved. Conus terminates normally at L1-2 disc level. L1-L2: Mild facet arthritis. No stenosis. L2-L3: Mild disc bulging and facet arthritis. No stenosis. L3-L4: Mild annular disc bulging with a LEFT foraminal disc protrusion contacting the exiting LEFT L3 nerve root. Similar to the prior study. Ligamentum flavum and facet joint arthritis are similar to the prior exam. Very mild RIGHT foraminal stenosis. New LEFT hemilaminectomy defect. L4-L5: Mild osteophytic ridging and facet joint arthritis. Small hemilaminectomy defect on the LEFT. Central broad-based disc protrusion is new. Very slight contact on the RIGHT traversing L5 nerve root. Shallow LEFT foraminal disc protrusion. There is mild LEFT foraminal stenosis. L5-S1: No stenosis. L5 is sacralized. Paravertebral soft tissues are negative. MR/MR lumbar spine wo con* [id number] IMPRESSION: 1. LEFT hemilaminectomy defects are new at L3-4 and L4-5 since 03/18/2024. 2. New central broad-based disc protrusion at L4-5. Minimal contact on the RIG HT traversing L5 nerve root. 3. Shallow LEFT foraminal disc protrusion at L4-5. Mild LEFT foraminal stenosi s. 4. LEFT foraminal disc protrusion at L3-4 contacting the exiting LEFT L3 nerve root. Similar to the prior study. 5. L3 anterolisthesis by 2.9 mm.
== END 2024-12-31 08:37 | disposition home or self-care (01) ==
LOC: RAD 08:37
PROVIDERS: Visit Provider Orthopaedic Surgery
DX: M48.062 Spinal stenosis, lumbar region with neurogenic claudication (principal); Z98.890 Other specified postprocedural states; M47.816 Spondylosis without myelopathy or radiculopathy, lumbar region; M51.369 Other intervertebral disc degeneration, lumbar region without mention of lumbar back pain or lower extremity pain; M25.78 Osteophyte, vertebrae
CPT/HCPCS: 72148

== ENCOUNTER → 2025-01-06 07:56 | Outpatient (BNVA) | payer MEDICAID, SELFPAY ==
[2024-02-26 13:37] VITALS: BP 118/78; BMI 32.9
== END ==
PROVIDERS: Visit Provider Orthopaedic Surgery
DX: M48.062 Spinal stenosis, lumbar region with neurogenic claudication (principal); Z51.89 Encounter for other specified aftercare
CPT/HCPCS: 99214

== ENCOUNTER → 2025-01-20 07:59 | Outpatient (BNVA) | payer MEDICAID, SELFPAY ==
[2024-02-26 13:37] VITALS: BP 118/78; BMI 32.9
== END ==
PROVIDERS: Visit Provider Orthopaedic Surgery
DX: Z98.890 Other specified postprocedural states (principal); G89.29 Other chronic pain; M47.812 Spondylosis without myelopathy or radiculopathy, cervical region; M47.816 Spondylosis without myelopathy or radiculopathy, lumbar region; M48.062 Spinal stenosis, lumbar region with neurogenic claudication
CPT/HCPCS: 99024; 99214